=== PATIENT | male | born 1955 | race Caucasian/White ===

== ENCOUNTER 2016-09-13 00:33 | Inpatient (IN) | payer MEDICARE, OTHER ==
--- NOTE | ~2016-09-13 | CONSULT ---
Radiation Oncology Consult [address] [address] NAME: WILLIAMS BOSWELL : 53 STATUS : ADM IN PAT#: [id number] AGE: 60 ADM/REG DATE : 09/13/16 MR#: [id number] REPORT SERV DATE: 09/23/16 DICTATED BY: JOVANI POLK DATE: 09/23/16 REPORT STATUS : Draft TRANSCRIBED BY: MODOmaira DATE: 09/23/16 RADIATION ONCOLOGY CONSULTATION REASON FOR CONSULTATION: Local rectal cancer. HISTORY OF PRESENT ILLNESS: Mr. Boswell is a schizophrenic male with history of institution, who was recently transferred from [facility] with sepsis with workup showing a rectal mass. The following is taken from other reports since the patient is a very poor historian. He has had a history of total abdominal colectomy many years ago due to a traumatic incident with permanent ileostomy. The patient reports, however, makes stools. Dr. Wes Askew on 09/17/2016 performed ileoscopy with proctoscopy, as well as sigmoidoscopy. On digital rectal exam, a greater than 10 cm soft rectal mass was palpated 0.5 cm from the anal verge. This mass was circumferential. Fungating, nonobstructing large mass was found in the rectum measuring 12 cm in length. Biopsy showed moderately-differentiated adenocarcinoma. MRI without contrast performed yesterday shows tumor extending into the anal sphincter involving both the internal and external and through the intersphincteric plane. The imaging was limited due to motion artifacts, however, no distinct lymph nodes were apparent. CT of the chest shows three noncalcified nodules in the left upper lobe measuring 3 mm. These findings were reported to be nonspecific and high probability of being benign. The patient has been evaluated by Dr. Angulo who requests consideration for neoadjuvant therapy prior to resection. Today in the hospital bed, the patient again was a poor historian, at times suggesting that I was talking to the wrong Williams Boswell and wanted to ask if we are in [place]. No other family members were present at the time of the consultation. The patient reports continued dark stools, as well as pain in the rectal area. REVIEW OF SYSTEMS: Review of systems was attempted, but not reliably reported as above. PAST MEDICAL HISTORY: Significant psychiatric issues in the late teens including defiance, anger, lability problems, subsequently diagnosed with bipolar disorder and schizophrenic disorder. Followed at [facility] for many years. SOCIAL HISTORY: Lives in a assisted, which is managed by [facility]. One sister lives locally, has power of transactional attorney. Other sister is reportedly a top trimmer in [place]. PHYSICAL EXAMINATION: GENERAL: Well-developed, well-nourished white male, sitting in hospital bed, in no acute distress. Performance status 1. ENT: Moist oral mucosa. Hearing unimpaired. NECK: Supple without adenopathy or thyromegaly. EYES: Sclerae anicteric. Pupils are equal, round, and reactive to light. Radiation Oncology Consult [address] [address] NAME: WILLIAMS BOSWELL : 53 STATUS : ADM IN [facility]#: [id number] AGE: 60 ADM/REG DATE : 09/13/16 MR#: [id number] REPORT SERV DATE: 09/23/16 DICTATED BY: JOVANI POLK DATE: 09/23/16 REPORT STATUS : Draft TRANSCRIBED BY: BRONSON DATE: 09/23/16 PULMONARY: Clear to auscultation bilaterally. Good respiratory effort. CARDIOVASCULAR: Regular rate and rhythm. No peripheral edema. ABDOMEN: Right lower quadrant ileostomy in place with a large amount of succus in the bag. NEUROLOGIC: No focal deficits. IMAGING: I reviewed imaging as above. ASSESSMENT AND PLAN: Advanced rectal adenocarcinoma, at least T3 with lymph nodes difficult to evaluate on MRI. No evidence of distant metastasis: He is a candidate for neoadjuvant therapy to aid in surgical resection. Given the patient's difficult psychological and social state, I believe five to six weeks of standard neoadjuvant chemoradiotherapy may be difficult with high risk for the patient to stop appearing for treatments during his course. Therefore, I recommend use of the regimen of 25 Gy in 5 fractions. This should have low side affects and should be much easier to deliver to the patient. KAELA/BRONSON Jovani Polk MD / [id number] CC: Cole Jacobo MD
--- NOTE | ~2016-09-13 | CN ---
Consultation Report [facility] [address] [place]. [address] NAME: JODI BOSWELL : 53 STATUS : ADM IN [facility]#: [id number] AGE: 60 ADM/REG DATE : 09/13/16 MR#: [id number] REPORT SERV DATE: 09/13/16 DICTATED BY: SAIMA RODRIGUEZ DATE: 09/13/16 REPORT STATUS : Draft TRANSCRIBED BY: MODL DATE: 09/13/16 CONSULTATION DATE OF CONSULTATION: 09/13/2016 HISTORY: This is a 60-year-old, white male, who has been transferred here to [facility] to the ICU with suspected a rectal mass. I have been asked to help specifically with a Bardales catheter placement. Apparently, he was initially seen at [facility] and by report had a 10-Luxembourgish catheter inserted there and it was removed, no one here has been able to reinsert a Bardales, and the patient has not voided and has an elevated creatinine. He is bipolar and schizophrenic and is a very poor historian. Apparently, he lives in a fci. He really cannot give me a lot of voiding history but does mention that he has had trouble voiding over the last few days. He actually has been seen recently by Dr. Madrid for evaluation of a possible bladder mass but this has not been confirmed on recent CT scan. The patient denies any history of prostate or urethral surgery and I cannot find anything in his record about this. PAST MEDICAL HISTORY: Hypertension, bipolar disorder, schizophrenia. He has had some sort of abdominopelvic traumatic injury, requiring colostomy placement many years ago. Recent CT scan showed small kidneys consistent with chronic renal disease. SOCIAL HISTORY: He lives in a fci. He does not smoke or drink. HOME MEDICATIONS: Include only Norvasc, benztropine, olanzapine. ALLERGIES: HE IS ALLERGIC TO LATEX. PHYSICAL EXAMINATION: GENERAL: He is a very pleasantly confused, white male, who is in no distress. He is alert and will attempt to answer questions but again is confused. HEENT: His pupils are equal, round, and reactive. There is an NG tube in place. Oropharynx is clear. VITAL SIGNS: He is afebrile. His vital signs are stable at this time. NECK: Supple. LUNGS: Clear. HEART: Regular. ABDOMEN: Soft and nontender. There is a lower quadrant ostomy. I was not able to specifically palpate his bladder. : His penis is circumcised without lesion. Testes, epididymitis, spermatic cords are normal other than mild testicular atrophy. Anal tone is lax. Prostate gland exam is unusual. He has a flat firm feeling prostate as best I can tell. Normal prostatic anatomy is not particularly well delineated. EXTREMITIES: No cyanosis. Consultation Report [address] [place]. [address] NAME: JODI BOSWELL : 53 STATUS : ADM IN [facility]#: [id number] AGE: 60 ADM/REG DATE : 09/13/16 MR#: [id number] REPORT SERV DATE: 09/13/16 DICTATED BY: SAIMA RODRIGUEZ DATE: 09/13/16 REPORT STATUS : Draft TRANSCRIBED BY: BRONSON DATE: 09/13/16 LABORATORY VALUES: White cell count 17.9, H and H 14 and 44, current creatinine is 7.7, BUN is 127, procalcitonin 2.5, serum sodium is only 120, alkaline phosphatase is markedly elevated at 192. Transfer records from [facility] include a CT of the abdomen and pelvis done on 09/12/2016. By report, this shows a right lower quadrant ostomy with small bowel obstruction and irregular rectum with rectal wall thickening, worrisome for carcinoma, fluid filled sigmoid colon, a distended urinary bladder, an enlarged prostate gland, small irregular kidneys consistent with chronic medical renal disease. Actually, urinalysis from 09/12 at [facility] showed 5 white cells and 3 red cells per high-powered field. After sterile prep and drape and instillation of lidocaine jelly and K-Y jelly per urethra, I was able to place a 16-Luxembourgish latex-free Bardales without any difficulty. We obtained roughly 275 mL of urine, which does not represent a true residual urine volume. The urine looked dark. IMPRESSION: 1. Questionable history of urinary retention/voiding difficulty. 2. Nursing staff unable to pass a Bardales catheter. 3. Acute renal failure on chronic renal failure. 4. Underlying benign prostatic hyperplasia, although a baseline voiding history is extremely difficult to obtain. 5. Apparent rectal/pelvic mass potentially with bowel obstruction. RECOMMENDATIONS: Again, I was able to place a 16-Luxembourgish latex-free Bardales without difficulty. From a standpoint, we will simply leave this in position, and we will collect urine for UA, C and S. I am going to sign off now but will be available for any issues as needed. I suppose his Bardales catheter could be removed whenever you see fit. Since he is an established patient of Dr. Madrid at [facility], he can certainly follow up with [facility] upon discharge. Thank you for the consult. LINDY/BRONSON Saima Rodriguez M.D. / [id number] CC: Jocelyn Dhaliwal M.D.
--- NOTE | ~2016-09-13 | CN ---
Consultation Report [facility] [address] [place]. [address] NAME: JODI BOSWELL : 53 STATUS : ADM IN [facility]#: [id number] AGE: 60 ADM/REG DATE : 09/13/16 MR#: [id number] REPORT SERV DATE: 09/14/16 DICTATED BY: WES CALIXTO DATE: 09/14/16 REPORT STATUS : Draft TRANSCRIBED BY: MODL DATE: 09/14/16 INPATIENT CONSULT NOTE DATE OF CONSULTATION: 09/14/2016 REASON FOR CONSULTATION: Concern for rectal mass/colonic obstruction. HISTORY OF PRESENT ILLNESS: Mr. Boswell is a very pleasant, 60-year-old male with a past medical history most significant for prior colectomy with chronic right lower quadrant colostomy, who was transferred from [facility] the day prior to this consultation after presenting with altered mental status, shortness of breath, and a significant acute renal failure. As part of the patient's evaluation at the outside hospital, he had undergone a noncontrast CT scan that showed a suspected distal obstruction problems proximal to the right lower quadrant colostomy. There was also an area of enlargement and irregularity in the rectum suspicious for possible neoplasm. Given these findings, GI was consulted here at [facility] after his transfer for further evaluation. Per patient's report, the patient's surgery was somewhere in between 7 and 10 years prior. The patient had sustained a traumatic injury to his abdomen after a fall resulting in a perforated viscus with placement of the colostomy after colon resection. No history of colon cancer in the family. No bright red blood per rectum. No melena by report. The patient has had increased ostomy output recently. REVIEW OF SYSTEMS: All systems reviewed were negative aside from what was mentioned in the history of present illness. PAST MEDICAL HISTORY: Includes: 1. Hypertension. 2. Bipolar disorder. 3. Schizophrenia. 4. History of perforated viscus, status post partial colectomy and right lower quadrant colostomy placement. FAMILY HISTORY: No family history of GI-related malignancy. SOCIAL HISTORY: No alcohol, tobacco, or illicit substance use. ALLERGIES: THE PATIENT HAS ALLERGIES TO LATEX ONLY. OUTPATIENT MEDICATIONS: 1. Norvasc. 2. Zyprexa. Consultation Report [facility] [address] [place]. [address] NAME: JODI BOSWELL : 53 STATUS : ADM IN PAT#: [id number] AGE: 60 ADM/REG DATE : 09/13/16 MR#: [id number] REPORT SERV DATE: 09/14/16 DICTATED BY: WES CALIXTO DATE: 09/14/16 REPORT STATUS : Draft TRANSCRIBED BY: BRONSON DATE: 09/14/16 3. Cogentin. 4. Vitamin D3. 5. Advil p.r.n. PHYSICAL EXAMINATION: VITAL SIGNS: Most recent vital signs include a temperature of 97.2, pulse rate of 104, blood pressure 104/62, and saturating 99% on room air. GENERAL INSPECTION: Reveals an elderly male, lying in bed, in no apparent distress. HEENT: Head is normocephalic, atraumatic with normal inspection of oral mucosa which is moist. Sclerae nonicteric. Pupils are equal and round. The patient has an NG tube coming out of his left naris that is taped in place. NECK: Supple without lymphadenopathy. HEART: Heart rate is regular with normal S1, S2. LUNGS: Sounds clear to auscultation bilaterally from the anterior aspect. ABDOMEN: Soft, nontender, nondistended. The patient has active bowel sounds. No masses were appreciated. The patient had a colostomy in his right lower quadrant and is producing greenish brown stool. EXTREMITIES: The patient had no cyanosis, clubbing, or edema. SKIN: No jaundice or rash. PSYCHIATRIC: He was alert and oriented. Mood and affect appear to be appropriate. Judgment appeared to be intact. LABORATORY DATA: Most recent laboratory results include a CBC with a white count of 16.2, hemoglobin of 14.8, and a platelet count of 397,000. Comprehensive metabolic panel was remarkable for sodium of 130, potassium is critically low at 2.2, chloride of 77, bicarb of 24, BUN of 144, creatinine of 7.64. Magnesium of 3.3. Phosphorus of 9.5. Normal LFTs. The patient had a KUB and a small-bowel follow-through performed here this morning that showed evidence of dilated small bowel up to a maximal diameter of 5.6 cm water-soluble contrast was slow to move through the small bowel and did not appear to reach the colon or the ostomy bag. ASSESSMENT AND PLAN: Mr. Boswell is a very pleasant 60-year-old male with a past medical history most significant for prior perforated viscus and placement of a colostomy several years ago, who now has imaging findings suspicious for colonic obstruction proximal to his ostomy as well as irregularities in the rectum concerning for a neoplasm there. We would recommend endoscopic evaluation and biopsies for both of these abnormalities. However, at the current time, the patient's electrolyte abnormalities were significant, and the patient is a not an appropriate candidate for an elective procedure with sedation. We would recommend working to resolve the patient's electrolyte abnormalities and treating his renal failure. We would also check a CEA level. We will proceed with an endoscopic evaluation at some point in the near future once the patient is more appropriate candidate for sedation and undergoing procedures. Consultation Report [facility] [address] [place]. [address] NAME: JODI BOSWELL : 53 STATUS : ADM IN [facility]#: [id number] AGE: 60 ADM/REG DATE : 09/13/16 MR#: [id number] REPORT SERV DATE: 09/14/16 DICTATED BY: WES CALIXTO DATE: 09/14/16 REPORT STATUS : Draft TRANSCRIBED BY: BRONSON DATE: 09/14/16 Thank you very much for this interesting consult. We will follow along. Please call with any questions or concerns you may have. [facility]/BRONSON Wes Calixto MD / [id number] CC: Jocelyn Dhaliwal M.D. UNKNOWN
--- NOTE | ~2016-09-13 | CONSULT ---
Radiation Oncology Consult [place] [address] [place]. [address] NAME: JODI BOSWELL : 53 STATUS : ADM IN PAT#: [id number] AGE: 60 ADM/REG DATE : 09/13/16 MR#: [id number] REPORT SERV DATE: 09/23/16 DICTATED BY: JOVANI POLK DATE: 09/23/16 REPORT STATUS : Draft TRANSCRIBED BY: MODL DATE: 09/23/16 RADIATION ONCOLOGY CONSULTATION ADDENDUM: ASSESSMENT AND PLAN: 1. The benefit of 25 Gy in 5 fractions is the brevity of the course (one week), as well as no need for concurrent systemic therapy. We will arrange for CT simulation in the next one to two days and hope to start treatment soon thereafter. I will discuss final plans with Dr. Angulo and Dr. Vicki Kramer. 2. Informed consent: Risks, benefits, and alternatives of radiotherapy were explained to the patient. He voiced understanding and has elected to proceed as above. Of note, he is confused today and therefore consent will need to be provided by his power of fire crew specialist (his sister who lives locally). 3. Sepsis: This is being managed as an inpatient. It is a pleasure to participate in his care. KAELA/BRONSON Jovani Polk MD / [id number] CC: MD Wes Malik MD David Sahaj, M.D. Brooke R. Daniel, M.D. Eric C. Nelson, MD
--- NOTE | ~2016-09-13 | CN ---
Consultation Report [facility] [address] [place]. [address] NAME: JODI BOSWELL : 53 STATUS : ADM IN PAT#: [id number] AGE: 60 ADM/REG DATE : 09/13/16 MR#: [id number] REPORT SERV DATE: 09/20/16 DICTATED BY: GRICEL ANGULO DATE: 09/20/16 REPORT STATUS : Draft TRANSCRIBED BY: MODL DATE: 09/20/16 COLORECTAL SURGERY CONSULTATION NOTE DATE OF CONSULTATION: 09/20/2016 REASON FOR CONSULTATION: Low colorectal cancer. HISTORY OF PRESENT ILLNESS: This is an unfortunate 60-year-old, schizophrenic male who is institutionalized. He has a very supportive family, however but I have not been able to meet them yet. The patient was transferred from [facility] with sepsis and worked up in the intensive care unit. His creatinine has nearly returned to normal. His white blood cell count is decreased. The source of the sepsis is a little bit unclear to me, but may be related to infection of his distal rectal pouch, although this would be very unusual. In any case, he also possibly had some small bowel obstruction, but this also seems to have resolved at this time and his right lower quadrant ileostomy is working well. The reason he has an ileostomy is apparently that he underwent a total abdominal colectomy many years ago for a traumatic incident where he fell on a norman. He has had no problems with this since by his report, but of course his history is unreliable. I have personally discussed the case with Dr. Nieves, Dr. Askew who discussed the findings of ileoscopy and his distal rectal stump with me, and I have also personally discussed the case Dr. Vicki Kramer regarding the need to renew the neoadjuvant treatment. I have not been able to see the CT scans that were obtained over at [place], which showed apparently by report a small bowel obstruction as well as the lesion in his pelvis. The fact that his creatinine was elevated is very concerning and may indicate involvement of the tumor with other pelvic structures such as prostate or ureters. CT scan is not adequate to evaluate this however. For the rest of his medical history, surgical history, social history, family history, medications, allergies to mediations, and review of systems, please see his admitting history and physical. PHYSICAL EXAMINATION: VITAL SIGNS: Most recent temperature 98.5, pulse 93, 97% on room air, blood pressure is 90/70, respiratory rate 16. GENERAL: Alert and oriented x3. A pleasant man who is somewhat repetitive. HEENT: Normocephalic, atraumatic. NECK: Supple. No carotid bruits are noted. No cervical lymphadenopathy. CHEST: Clear to auscultation bilaterally. HEART: Regular rate and rhythm. No murmurs, rubs, or gallops are auscultated. ABDOMEN: Completely soft, nontender, and nondistended. His right lower quadrant ileostomy has a large amount of succus in the bag. EXTREMITIES: Warm and well perfused without edema. NEURO: No focal neurologic deficits are noted on gross exam. RECTAL: Exam reveals frondlike tissue all the way down to the anal verge, but I do not feel any hard sections. I discussed with Dr. Askew and he states that his entire rectum is Consultation Report [address] [address] NAME: JODI BOSWELL : 53 STATUS : ADM IN [facility]#: [id number] AGE: 60 ADM/REG DATE : 09/13/16 MR#: [id number] REPORT SERV DATE: 09/20/16 DICTATED BY: GRICEL ANGULO DATE: 09/20/16 REPORT STATUS : Draft TRANSCRIBED BY: BRONSON DATE: 09/20/16 replaced with tubulovillous adenoma appearing material and the actual area that he biopsied to demonstrate adenocarcinoma was a little bit higher up. IMAGING: As above. LABS: As above. ASSESSMENT: A 60-year-old, institutionalized schizophrenic male, already an ostomate, now with findings of a rectal cancer. PLAN: We will obtain an MRI rectal cancer protocol. If it appears that negative circumferential resection margins are achievable, I will offer the patient primary surgery. I discussed this with his sisters. If it appears that the patient would benefit neoadjuvant treatment, we will need to discuss this in a multidisciplinary setting. Per my discussion with Dr. Vicki Kramer, the patient is at high risk for complications not only due to his mental status, but also due to his acute kidney injury and possible chronic renal insufficiency. I appreciate everyone's input and hopefully we can bring this poor man's situation to a successful conclusion. ISMAELN/BRONSON Gricel Angulo MD / [id number] CC: Dane De Los Santos M.D.
--- NOTE | ~2016-09-13 | IDS ---
Interim Discharge Summary [facility] [address] [place]. [address] NAME: JODI BOSWELL : 53 STATUS : ADM IN PAT#: [id number] AGE: 60 ADM/REG DATE : 09/13/16 MR#: [id number] REPORT SERV DATE: 09/18/16 DICTATED BY: MORGAN DHALIWAL DATE: 09/18/16 REPORT STATUS : Draft TRANSCRIBED BY: MODL DATE: 09/18/16 ADMISSION DATE: 09/13/2016 DISCHARGE DATE: The patient was actually transferred from [facility]. TRANSFER DIAGNOSES: 1. Encephalopathy. 2. Shortness of breath. 3. Increased colostomy output, possible small-bowel obstruction. 4. Bipolar schizophrenia. 5. Acute kidney failure. 6. Previous colostomy done secondary to traumatic injury to the abdomen years ago. CONSULTATIONS DURING THIS HOSPITALIZATION: 1. To Urology, Dr. Caraballo for inability to place Bardales. 2. Nephrology for acute kidney failure. 3. GI for possible rectal mass, bleeding, and to surgery Dr. Nieves for evaluation of possible small bowel obstruction. HOSPITAL COURSE: This is a 60-year-old patient who was evaluated at [facility] on 13 of September, which he was for increased colostomy output and altered mental status as well as shortness of breath. The patient had started a workup on an outpatient basis for a possible mass on his bladder, which actually turned out not to be the case, and the patient was scheduled to see a colorectal surgeon earlier this week, but instead got admitted to [facility]. Surgery, Dr. Nieves was consulted for evaluation and possible need for any surgical intervention for small bowel obstruction. The surgeons have been following along, and thus far there is no need for any surgical intervention as far as his small bowel obstruction goes. The patient was thought to possibly have had an ileus as well. However, the patient did undergo colonoscopy done by Dr. Askew on 17 of September, which revealed a rectal mass. Biopsies were taken and were sent out for expedited pathology and results are not back as of yet. So, once the results have been obtained Hematology/Oncology should be consulted for further advice on treatment. It is still possible that the patient may need surgical intervention. While here, his colostomy has been functioning well, and there has been no trouble with stool production. The patient is also able to take a regular diet without any abdominal pain, nausea, or vomiting. Acute kidney injury versus kidney failure. The patient has been seen by Nephrology during this hospitalization and initial creatinine was 5. It was felt by Nephrology that the patient was profoundly volume depleted accounting for his hyponatremia. Hypokalemia was thought to be secondary to lack of good p.o. intake and perhaps nausea and vomiting. The patient also had an increased anion gap metabolic acidosis. The patient was aggressively hydrated and started on a bicarbonate drip. Throughout the week, his creatinine and BUN have improved to where he is at 1.91 and 56 on his BUN, bicarbonate is 25, potassium is 3.8, and hyponatremia has resolved, and his sodium is now 136. Interim Discharge Summary [address] [address] NAME: JODI BOSWELL : 53 STATUS : ADM IN PAT#: [id number] AGE: 60 ADM/REG DATE : 09/13/16 MR#: [id number] REPORT SERV DATE: 09/18/16 DICTATED BY: MORGAN DHALIWAL DATE: 09/18/16 REPORT STATUS : Draft TRANSCRIBED BY: BRONSON DATE: 09/18/16 Next, the patient has a known history of bipolar schizophrenia, and is on medications which keep that under control, and this has not been an issue during this hospitalization. He is able to take p.o. and his medications have been continued. The patient had a difficult Bardales placement, and Dr. Caraballo, Urology saw the patient on 13 of September. Bardales was placed at the bedside, but since has been removed and the patient is able to void on his own. The patient should follow up with Urology, Dr. Madrid at [facility] since he already was initially evaluated by him. Urinalysis was sent on the and was not suggestive of urinary tract infection. So, the patient has been stabilized, and is in stable condition to be transferred to the Hospitalist Service later today if everybody else agrees. /MODL Morgan Dhaliwal M.D. / [id number] CC: Morgan Dhaliwal M.D.
--- NOTE | ~2016-09-13 | CN ---
Consultation Report [facility] [address] [place]. [address] NAME: JODI BOSWELL : 53 STATUS : ADM IN PAT#: [id number] AGE: 60 ADM/REG DATE : 09/13/16 MR#: [id number] REPORT SERV DATE: 09/13/16 DICTATED BY: LILY BARTON DATE: 09/13/16 REPORT STATUS : Draft TRANSCRIBED BY: MODL DATE: 09/13/16 CONSULTATION DATE OF CONSULTATION: REASON FOR CONSULTATION: Acute versus acute on chronic kidney injury. ASSESSMENT: Acute on chronic kidney disease in a 60-year-old male with a history of bipolar disorder, presenting in addition with hyponatremia, profound increased anion gap metabolic acidosis in the setting of possible small-bowel obstruction with a serum creatinine on admission of 8.04, now 7.78; BUN of 127; bicarb initially 17, now 13; and potassium of 2.4, initially 2.6; sodium of 120, now 124. With all the multiple electrolyte abnormalities, I suspect that the patient may be profoundly volume depleted with a true hyponatremia. The hypokalemia could be also explained by his profound nausea and vomiting, lack of intake, but in the setting of an increased anion gap metabolic acidosis, suggest that they could have been due to ongoing small-bowel loss. PLAN: Plan therefore is 1. Hydrate aggressively. We will place him on a bicarbonate drip. 2. Urine chemistries indicate that he is likely prerenal. 3. Supplement potassium but careful supplementation in view of his significant kidney failure. Prognosis alfaro, I suspect he has dehydration, but this may have gone on to ATN. I talked to his power of criminal attorney who is his sister that is Rhina Wakefield, and the issue of whether he should be a candidate for renal replacement therapy. This is something she is going to consider and talk to her other siblings as well, and we will make this decision over the next 24-48 hours in case his GFR does not improve. HISTORY: History is obtained from the records available. The patient is a very limited historian. He is a 60-year-old male who lives in a bipolar jail, and he had rectal bleeding for the past 2 to 3 weeks. He was supposed to see a colorectal surgeon today actually, but his sister saw that he was getting progressively worse over the past several days and sent him to ER at [facility] where he was found to be in profound renal failure, and a CT scan shows the presence of not only a rectal mass but a distended sigmoid colon in addition to possible small-bowel obstruction. His CT scan done at [facility] showed small kidneys bilaterally, but no evidence of obstructive disease. He did have a distended bladder. Bardales catheter was initially difficult to place but has been placed, but then there has been no evidence of a postobstructive diuresis at this time. MEDICATIONS: His medications at home include amlodipine, benztropine, and olanzapine. PAST MEDICAL HISTORY: Includes hypertension, bipolar, schizophrenia, history of traumatic injury to his abdomen and requiring a colostomy back in 2006 at [facility]. SOCIAL HISTORY: He does not smoke cigarettes. No alcohol or medication or street drug Consultation Report [address] [place]. [address] NAME: JODI BOSWELL : 53 STATUS : ADM IN [facility]#: [id number] AGE: 60 ADM/REG DATE : 09/13/16 MR#: [id number] REPORT SERV DATE: 09/13/16 DICTATED BY: LILY BARTON DATE: 09/13/16 REPORT STATUS : Draft TRANSCRIBED BY: BRONSON DATE: 09/13/16 usage. FAMILY HISTORY: Positive for metastatic lung cancer in his father. Mother was a diabetic and had kidney failure. REVIEW OF SYSTEMS: As per the HPI. PHYSICAL EXAMINATION: GENERAL: He is an ill-appearing male, appears cachectic. VITAL SIGNS: His vital signs show that his blood pressure is 113/75, heart rate is in 104, afebrile. HEENT: Pupils are reacting to light. He is not pale or jaundiced. Oral mucosa is dry. He has an NG tube in his left nostril. CHEST: Air entry is equal bilaterally. Chest is clear to auscultation. HEART: Seminole beat not displaced. S1-S2. No rub. ABDOMEN: It is distended. He has a colostomy in right lower quadrant. There is no tenderness, guarding, or rebound. EXTREMITIES: He has 1+ peripheral edema. No skin rash reported. No acute arthritic findings noted. Peripheral pulses are present, dorsalis pedis, posterior tibial. NEUROLOGIC: He is awake, alert, he is oriented to place and name, but has a bland affect. LABORATORY DATA: His lab work shows him to have a sodium of 124, potassium 2.4, chloride 81, CO2 of 13, BUN 127, creatinine 7.78, magnesium 3.2, phosphorus 11.0. White count 17.9, hematocrit 44.0, hemoglobin 14.6, platelets 421. His urine chemistries show him to have a urine sodium of 10 and a creatinine of 144. FENa less than 1. MG/MODL Lily Barton M.D. / [id number] CC: Jocelyn Dhaliwal M.D.
--- NOTE | ~2016-09-13 | DS ---
Discharge Summary [place] [id number] [facility] [place]. [address] NAME: JODI BOSWELL : 53 STATUS : DIS IN PAT#: [id number] AGE: 60 ADM/REG DATE : 09/13/16 MR#: [id number] REPORT SERV DATE: 10/02/16 DICTATED BY: DATE: REPORT STATUS : Draft TRANSCRIBED BY: MODL DATE: 10/01/16 ADMISSION DATE: 09/13/2016 DISCHARGE DATE: 10/01/2016 DISCHARGE DIAGNOSES: 1. Colorectal cancer. 2. Acute kidney injury on chronic kidney disease, stage III. 3. History of colostomy. 4. History of electrolyte abnormalities. 5. Schizoaffective disorder. 6. Hypertension. CONSULTATIONS: 1. Dr. Javi Caraballo, Urology. 2. Dr. Eliud Barton, Nephrology. 3. Dr. Wes Askew, Gastroenterology. 4. Dr. Vicki Kramer, [facility]. 5. Dr. Jhonny Angulo, Surgery. 6. Dr. Serge Nieves, Psychiatry. 7. Dr. Jovani Polk, Radiation Oncology. PERTINENT TESTS AND PROCEDURES: 1. Small bowel follow-through, 09/13/2016. Impression: Dilated small bowel. No definite contrast identified within distal small bowel or ostomy bag at 10.5 hours. 2. KUB, 09/14/2016. Impression: Decreased small bowel dilatation compared with 09/13/2016. Only minimal residual dilute contrast present within small bowel. No definite contrast identified within the right lower quadrant ostomy bag. Appearance is likely partial small bowel obstruction. 3. Abdominal x-ray, 09/14/2016. Impression: Mild dilatation of small bowel. Contrast now present in the right lower quadrant ostomy bag. 4. Abdominal x-ray, 09/15/2016. Impression: Nonobstructive gas pattern. Decrease in amount of intestinal gas compared to prior studies. 5. MRI of pelvis without contrast, 09/20/2016. Impression: Large bulky tumor extending from the anal sphincter complex into mid rectum. Stage IIA. Please note however because of motion limitations, detection of the nodes is felt to be compromised. 6. CT of chest without contrast, 09/21/2016. Impression: Three noncalcified nodules in the left upper lobe measuring 3 x 3 mm in size. Nonspecific findings with high probability of being benign. Patchy ground-glass opacity within the left upper lobe, which may be infectious/inflammatory. Atelectatic changes in the lower lobes of both lungs as well as in the lingula. 7. Ileoscopy with pouchoscopy, 09/17/2016. Findings: Digital rectal exam revealed a greater than 10 cm diameter soft rectal mass palpated 0.5 cm from the anal verge. The mass was circumferential. A fungating, nonobstructing large mass was found in the rectum. The mass was circumferential. The mass measured 12 cm in length. No bleeding was present. Biopsies were taken. The area at 30 cm proximal to the stoma appeared normal. Likely malignant tumor in the rectum. Biopsied. Examined portion of the Discharge Summary [address] [address] NAME: JODI BOSWELL : 53 STATUS : DIS IN [facility]#: [id number] AGE: 60 ADM/REG DATE : 09/13/16 MR#: [id number] REPORT SERV DATE: 10/02/16 DICTATED BY: DATE: REPORT STATUS : Draft TRANSCRIBED BY: MODL DATE: 10/01/16 ileum was normal. 8. Surgical pathology report. Final pathologic diagnosis: Biopsies, rectal mass, moderately differentiated adenocarcinoma. CHIEF COMPLAINT UPON ADMISSION: Altered mental status, shortness of breath, increasing colostomy output. HOSPITAL COURSE: Please refer to history and physical dated 09/13/[address] Jocelyn Dhaliwal for complete details of the patient's initial presentation upon admission and health history. Please also refer to consultations from multiple subspecialists to include Urology, Nephrology, Gastroenterology, Oncology, General Surgery, Psychiatry, Radiation Oncology between the dates of service of 09/13/2016 and 09/23/2016. Please refer to interim discharge summary dated 09/18/[address] Jocelyn Dhaliwal for events pertaining to dates of service between 09/13/2016 and 09/18/2016. Please also refer to interim discharge summary dated 09/27/[address] Cole Jacobo for events occurring between dates of service 09/19/2016 and 09/27/2016. Briefly, the patient is a 60-year-old male, who presented to the emergency department on 09/13/2016 after transfer from [facility]. The patient presented with altered mental status, shortness of breath, and increased colostomy output. Initial evaluation performed at [facility] included a CT scan of the abdomen without contrast that showed a suspected distal obstruction proximal to the right lower quadrant colostomy. There was concern regarding possible rectal carcinoma and the patient was in the process of having this worked up as an outpatient before this admission. Further evaluation also indicated acute kidney failure of unclear etiology with metabolic acidosis. The patient was admitted to the intensive care unit for further evaluation and treatment. During this admission, the patient was diagnosed with colorectal cancer and has been followed by Radiation Oncology and Surgery. The patient completed five out of five radiation treatments today and is scheduled for surgery with Dr. Jhonny Angulo next , 10/07/2016. The patient will follow up with Dr. Vicki Kramer, [facility] approximately two weeks postop for further evaluation and future recommendations regarding plan of care. 1. Colorectal cancer. This is a new diagnosis. The patient has been followed by Radiation Oncology and Surgery along with Oncology. The patient completed five of five radiation treatments during this admission, last treatment today. The patient will return to the hospital on , 10/07/2016, for surgery per Dr. Jhonny Angulo. 2. Acute kidney injury on chronic kidney disease, stage III. Nephrology was consulted upon admission secondary to the patient presenting with hyponatremia, profound increased anion gap metabolic acidosis in the setting of possible small bowel obstruction with serum creatinine on admission of 8.04 and BUN of 127. With all the Discharge Summary [address] [address] NAME: JODI BOSWELL : 53 STATUS : DIS IN PAT#: [id number] AGE: 60 ADM/REG DATE : 09/13/16 MR#: [id number] REPORT SERV DATE: 10/02/16 DICTATED BY: DATE: REPORT STATUS : Draft TRANSCRIBED BY: MODL DATE: 10/01/16 multiple electrolyte abnormalities, it was suspected that the patient was suffering from profound volume depletion with a true hyponatremia. Hypokalemia could have also been explained by profound nausea and vomiting, lack of intake, but may have also been related to ongoing small bowel loss in the setting of increased anion gap metabolic acidosis. The patient received aggressive hydration and was placed on a bicarbonate drip. Throughout the first week of admission, the patient responded well to aggressive hydration and bicarbonate drip. Creatinine has continued to trend down daily, and BUN and creatinine were reported to be 30 and 1.60 today. 3. History of colostomy. This is secondary to trauma associated with fall multiple years ago. The patient performs self-care of ostomy bag at home. The patient has produced approximately 725 mL of liquid to softly formed stool over the past 24 hours. 4. History of electrolyte abnormalities in the setting of acute kidney injury on chronic kidney disease, stage III. This occurred during the first week of admission and was likely related to volume depletion. The patient responded well to aggressive hydration and electrolyte repletion. The patient's electrolytes are stable on the day of discharge. Potassium is reported to be 3.4 and will be repleted per protocol before discharge, magnesium 1.8, and phosphorus 3.6. 5. Schizoaffective disorder. The patient has a history of bipolar and schizophrenia, which is well controlled on current medications. He was evaluated by Dr. Serge Nieves, Psychiatry during this admission and recommendations included continuing current Zyprexa and Cogentin. The patient is at baseline state of mental health at discharge and will return to his fdc upon discharge today. 6. Hypertension. The patient's home medications included amlodipine 5 mg p.o. daily. This medication was discontinued upon admission secondary to hypotension. The patient has not had any blood pressure medications since admission and systolic blood pressure has remained stable in the mid 90s to very low 100s. The patient has been instructed to check blood pressure at home daily and to resume this medication if systolic blood pressure is equal to or greater than 130 consistently. DISCHARGE CONDITION: At the time of discharge, the patient is hemodynamically stable. DISCHARGE DIET: Regular diet. DISCHARGE MEDICATIONS: 1. Cogentin 2 mg tablet p.o. three times daily. 2. Zyprexa 10 mg tablet, take 30 mg p.o. at bedtime. 3. Amlodipine 5 mg tablet p.o. daily. This medication should be held until blood pressure indicates consistent reading of systolic of 130 or greater. Currently, the patient's blood pressure is running between 90 to low 100s over mid 50s to low 60s. 4. Vitamin D3 10,000 international units one capsule p.o. weekly. 5. Advil 200 mg tablet p.o. daily as needed. This medication should be discontinued secondary to recent acute renal failure. DISCHARGE INSTRUCTIONS: 1. The patient is scheduled for surgery with Dr. Angulo on 10/07/2016. 2. The patient will follow up with Dr. Vicki Kramer approximately two weeks postop for further recommendations and future plan of care. Discharge Summary [place] [address] [place] [address] NAME: JODI BOSWELL : 53 STATUS : DIS IN PAT#: [id number] AGE: 60 ADM/REG DATE : 09/13/16 MR#: [id number] REPORT SERV DATE: 10/02/16 DICTATED BY: DATE: REPORT STATUS : Draft TRANSCRIBED BY: MODL DATE: 10/01/16 PRIMARY SURGEON: Dr. Angulo. PRIMARY ONCOLOGIST: Dr. Vicki Kramer. [facility]/BRONSON Skye Balbuena CALENDER TENDER-C / [id number] CC: Chaitanya Trinidad M.D.
--- NOTE | ~2016-09-13 | IDS ---
Interim Discharge Summary [facility] [address] [place]. [address] NAME: JODI BOSWELL : 53 STATUS : ADM IN PAT#: [id number] AGE: 60 ADM/REG DATE : 09/13/16 MR#: [id number] REPORT SERV DATE: 09/27/16 DICTATED BY: KONRAD STANLEY DATE: 09/27/16 REPORT STATUS : Draft TRANSCRIBED BY: MODOmaira DATE: 09/27/16 ADMISSION DATE: 09/13/2016 DISCHARGE DATE: ADDENDUM: This dictation is an addition to interim discharge summary dictated by Dr. Jocelyn Dhaliwal, on 09/18/2016. I assumed care of the patient on 09/21/2016. At the time of my assumption of care, the patient had a diagnosis of a rectal mass. He had been seen by Psychiatry for his intermittent altered mentation. The patient was diagnosed with schizoaffective disorder. At the time of my assumption of care, the patient remained hemodynamically stable. Oncology was already following the patient and so was Surgery and Radiation Oncology. Given the architecture of the patient's mass, the plan was for surgery to be deferred for now. While patient had neoadjuvant therapy, Radiation Oncology who was following patient did simulation studies on Tuesday09/24/2016 with plans to start a five-day course of radiation therapy starting today. The patient has remained hemodynamically stable throughout the time that he has been under my care. For his DEMETRICE, the patient was started on IV fluids with significant improvement of his kidney function. His last creatinine is 1.68 which is the best that it has been since the patient's hospitalization. For his hyponatremia, the patient has been hyponatremic since my assumption of care. The patient has remained asymptomatic status post initiation of normal saline 1 L. The patient's hyponatremia has resolved. Plan for patient is for a five-day course of radiation therapy after which patient will be discharged to follow with Oncology as outpatient. Discharge planning is still pending. CRISTO Konrad Stanley MD / [id number] CC: Konrad Stanley MD
--- NOTE | ~2016-09-13 | CN ---
Consultation Report [facility] [address] [place]. [address] NAME: JODI BOSWELL : 53 STATUS : ADM IN [facility]#: [id number] AGE: 60 ADM/REG DATE : 09/13/16 MR#: [id number] REPORT SERV DATE: 09/20/16 DICTATED BY: SERGE MCMAHAN DATE: 09/20/16 REPORT STATUS : Draft TRANSCRIBED BY: BRONSON DATE: 09/20/16 PSYCHIATRIC CONSULTATION DATE OF CONSULTATION: 09/20/2016 I reviewed this patient's medical record. I discussed the patient's history with his two sisters who were at the bedside. HISTORY OF PRESENT ILLNESS: He was admitted with confusion, shortness of breath, and an increased colostomy output. Since his admission, he was found to have a rectal carcinoma which might require surgery and/or other therapeutic interventions. PAST PSYCHIATRIC HISTORY: He has had significant psychiatric issues since his late teens. He had defiance, anger and lability problems. In subsequent years, he was variously diagnosed with bipolar disorder and schizophrenic disorder. He has been followed by [facility] for many years. MEDICATIONS: His current home medication list included Zyprexa and Cogentin. SOCIAL HISTORY: He lives in a longterm which is managed by [facility]. One sister who lives locally has power of ip attorney. The other sister who is a bartender in [place] is also very interested and supportive. MENTAL STATUS: He was pleasant and cooperative in attitude. He had a fairly good understanding about his having rectal cancer and the treatments which are under consideration. He is quite anxious about these issues. His affect was mostly appropriate, with mild lability. His thinking had mild tangentiality. No delusions were elicited. I did not observe his responding to internal stimuli (hallucinations). DIAGNOSIS: Schizoaffective disorder. RECOMMENDATIONS: We can continue with the current Zyprexa and Cogentin. I will be available for re-consultation if the need arises. [facility]/BRONSON Serge Mcmahan M.D. / [id number] CC: Dane De Los Santos M.D.
--- NOTE | ~2016-09-13 | EGD ---
EGD REPORT [facility] [address] [place]. [address] NAME: WILLIAMS BOSWELL : [birth year] STATUS : ADM IN PAT#: [id number] AGE: 60 ADM/REG DATE : 09/13/16 MR#: [id number] REPORT SERV DATE: 09/17/16 DICTATED BY: WES CALIXTO DATE: 09/17/16 REPORT STATUS : Draft [facility]ANS[facility] DATE: 09/17/16 Endoscopy Center Patient Name: Williams Boswell Date of : 1955 Attending MD: WES CALIXTO MD Procedure Date No Time: 09/17/2016 Procedure: Ileoscopy with Pouchoscopy Indications: Observation, suspect malignant neoplasm, Abnormal CT of the GI tract Referring MD: DEYANIRA RICKS III, MD Medicines: Monitored Anesthesia Care Complications: No immediate complications. Estimated blood loss: Minimal. Procedure: Pre-Anesthesia Assessment: - ASA Grade Assessment: III - A patient with severe systemic disease. After obtaining informed consent, the endoscope was passed under direct vision. Throughout the procedure, the patient's blood pressure, pulse, and oxygen saturations were monitored continuously. The [id number] was introduced through the anus and advanced to the Dinh pouch. After obtaining informed consent, the endoscope was passed under direct vision. Throughout the procedure, the patient's blood pressure, pulse, and oxygen saturations were monitored continuously. The CF [id number] was introduced through the ileostomy and advanced to 30 cm into the ileum. The procedure was performed without difficulty. The patient tolerated the procedure well. The quality of the bowel preparation was good. Findings: Digital rectal exam revealed a greater than 10 cm (diameter) soft rectal mass palpated 0.5 cm from the anal verge. The mass was circumferential. A fungating non-obstructing large mass was found in the rectum. The mass was circumferential. The mass measured twelve cm in length. No bleeding was present. Biopsies were taken with a cold forceps for histology. Estimated blood loss was minimal. The area at 30 cm proximal to the stoma appeared normal. Impression: - Likely malignant tumor in the rectum. Biopsied. - The examined portion of the ileum was normal. Recommendation: - Clear liquid diet. - Await pathology results. EGD REPORT [address] [address] NAME: WILLIAMS BOSWELL : [birth year] STATUS : ADM IN [facility]#: [id number] AGE: 60 ADM/REG DATE : 09/13/16 MR#: [id number] REPORT SERV DATE: 09/17/16 DICTATED BY: WES CALIXTO DATE: 09/17/16 REPORT STATUS : Draft TRANSCRIBED BY: [facility] DATE: 09/17/16 - Refer to an oncologist if pathology confirms malignancy. Procedure Code(s): --- Professional --- 33895, Sigmoidoscopy, flexible; with biopsy, single or multiple 23775, Ileoscopy, through stoma; diagnostic, with or without collection of specimen(s) by brushing or washing (separate procedure) Diagnosis Code(s): --- Professional --- K62.89, Other specified diseases of anus and rectum D49.0, Neoplasm of unspecified behavior of digestive system Z03.89, Encounter for observation for other suspected diseases and conditions ruled out R93.3, Abnormal findings on diagnostic imaging of other parts of digestive tract CPT copyright 2013 [employer]. All rights reserved. The codes documented in this report are preliminary and upon auditing coder review may be revised to meet current compliance requirements. Wes Calixto MD WES CALIXTO MD 09/17/2016 11:21 AM This report has been signed electronically. Number of Addenda: 0 Note Initiated On: 09/17/2016 8:51 AM [address] [id number]
--- NOTE | ~2016-09-13 | HP ---
History And Physical [place] [id number] [place]. [address] NAME: JODI BOSWELL : [birth year] STATUS : ADM IN [facility]#: [id number] AGE: 60 ADM/REG DATE : 09/13/16 MR#: [id number] REPORT SERV DATE: 09/13/16 DICTATED BY: MORGAN DHALIWAL DATE: 09/13/16 REPORT STATUS : Draft TRANSCRIBED BY: MODL DATE: 09/13/16 DATE OF ADMISSION: 09/13/2016 HISTORY OF PRESENT ILLNESS: This is a 60-year-old patient who was transferred here from [facility] after he presented there with altered mental status, shortness of breath. Also, it was reported that the patient had an increase in colostomy output. The patient was evaluated there and had a CT scan of the abdomen without contrast that showed a suspected distal obstruction proximal to the right lower quadrant colostomy. There is a distended loop of bowel distal colon that might be causing the obstruction, enlargement and irregularity of the rectum suspicious for neoplasm, dilatation of the residual sigmoid colon proximal to the rectum with compression on the ostomy side. Kidneys were also noted to be small probably due to chronic renal disease. The patient apparently gets most of his care at [place]. He lives in a long-term and has a diagnosis of bipolar and schizophrenia, which is well controlled. He was referred by Dr. Crowley to Dr. Madrid, who is the urologist because there was some suspicion of there possibly being a mass in or on the bladder; however, CT scan of the abdomen did not confirm this and the patient was then referred to a colorectal surgeon by the name of Dr. Dane Bartlett, whom he was to see on 09/14/2016. So, the patient did have a contrasted CT scan of the abdomen and pelvis done on 08/20/2016. Results of that are not available. The patient denies any abdominal pain. There is some slight nausea and a bit of shortness of breath. There was mention on transfer that he had some blood coming out of his rectum over at [facility]. The patient has no known allergies, although he has an allergy to latex. CURRENT MEDICATIONS: His current medications at home are 5 mg of Norvasc, benztropine 2 mg once daily and 20 mg of olanzapine. PAST MEDICAL HISTORY: Significant for hypertension, bipolar schizophrenia. Also, he had a traumatic injury to the abdomen that resulted from a fall and then that resulted in a perforated viscus and placement of colostomy, this was many years ago. Otherwise, the patient has no other known history. SOCIAL HISTORY: He does not smoke or drink. Lives in a long-term and denies any drug use. FAMILY HISTORY: Significant for metastatic lung cancer in his father. His mother was a diabetic and had kidney failure. There is no history of primary colon cancer in the family. The patient has a sister, who is his power of bench worker helper and most of the information was gotten from her. REVIEW OF SYSTEMS: A 12-point review of systems was done and is as per history of present illness. PHYSICAL EXAMINATION: GENERAL: The patient appears somewhat pale, but he is responsive and does not appear to be in any distress. VITAL SIGNS: His current vital signs are temperature of 97.6, blood pressure 106/73, O2 saturation of 99% on room air, heart rate is 100, and respiratory rate is 17. History And Physical [address] [address] NAME: JODI BOSWELL : [birth year] STATUS : ADM IN [facility]#: [id number] AGE: 60 ADM/REG DATE : 09/13/16 MR#: [id number] REPORT SERV DATE: 09/13/16 DICTATED BY: MORGAN DHALIWAL DATE: 09/13/16 REPORT STATUS : Draft TRANSCRIBED BY: BRONSON DATE: 09/13/16 HEENT: He has a nasogastric tube in place in the right naris draining dark brown gastric contents. The skin is warm and dry. The head is atraumatic and normocephalic. Pupils are equal, round, and reactive to light and accommodation. Extraocular eye movements are intact. Sclerae anicteric. Conjunctivae are pink. Nasal mucosa is within normal limits. Oral mucosa is moist. Tongue is midline. NECK: Supple without JVD, lymphadenopathy, or thyromegaly. LUNGS: Are diminished at the bases without wheezing. CARDIAC: Reveals a regular rate and rhythm with a soft 2/6 systolic murmur heard at the left sternal border. ABDOMEN: Mildly distended, but not tense. Soft to touch. There is no pain to palpation. No organosplenomegaly is appreciated. There is a colostomy at the right lower quadrant that does have liquid stool in it. He does not have a Bardales catheter in place. RECTAL: Deferred. GENITAL: Deferred. EXTREMITIES: Without cyanosis, clubbing, or edema. Pulses are palpable and symmetrical. NEUROLOGIC: Cranial nerves 2 through 12 are grossly intact. Motor and sensory are intact. LABORATORY DATA: Labs from [facility], his sodium is 117, potassium 2.6, chloride 87, bicarb 11, BUN 99, creatinine 8, blood sugar 144, ionized calcium is 0.99. White cell count is 27,000, hemoglobin is 15, hematocrit is 44, and platelet count is 508. PTT is 28, PT is 14, INR is 1.11. LFTs are within normal limits. Chest x-ray shows no cardiopulmonary disease. EKG shows right bundle-branch block and sinus tachycardia. There is no comparison from an old EKG. ASSESSMENT AND PLAN: 1. The patient with what appears to be a small bowel obstruction as per CT scan and some concern about rectal carcinoma. The patient was in the process of having this worked up before he got admitted. The plan will be to continue IV fluid hydration, correct electrolyte abnormalities, continue NG tube to low intermittent suction, and consult Surgery. I did speak to Dr. Nieves by phone this morning and we discussed the patient and he will be seeing the patient later this morning. 2. Acute kidney failure. Etiology not entirely certain. Could be possibly related to a combination of things, i.e. poor p.o. intake and then recent dye exposure. There may be an obstructive component as well. So, we will try and place a Bardales, get urine studies for sodium, creatinine, and osmolality. Get a serum osmolality. Hydrate the patient with normal saline and follow the labs closely and consult Nephrology to see the patient in the morning. I have already discussed this with Dr. Concepcion, who is on- call for the group. 3. Hypertension. Hold Norvasc for now. 4. Hyponatremia. Obtain urine sodium, creatinine, and osmolality, and serum osmolality. 5. Deep venous thrombosis prophylaxis. We will just do SCDs for now since there is possibility the patient may need to go to the operating room. 6. The patient has adequate IV access and is hemodynamically stable. We will place two peripherals and ask for a PICC line in the morning. 7. Metabolic acidosis, probably multifactorial, once again, related mostly to renal failure. We will follow that closely and give bicarbonate if needed. The patient is in guarded condition. History And Physical [address] [address] NAME: JODI BOSWELL : 53 STATUS : ADM IN [facility]#: [id number] AGE: 60 ADM/REG DATE : 09/13/16 MR#: [id number] REPORT SERV DATE: 09/13/16 DICTATED BY: MORGAN DHALIWAL DATE: 09/13/16 REPORT STATUS : Draft TRANSCRIBED BY: BRONSON DATE: 09/13/16 Total time spent with the patient discussing the patient's care with both Nephrology and Surgery, and updating the sister was 75 minutes commencing at 12:30 a.m. and ending at 01:45 a.m. /BRONSON Morgan Dhaliwal M.D. / [id number] CC: Morgan Dhaliwal M.D.
--- NOTE | ~2016-09-13 | OP ---
Record Of Operation [facility] [address] [place]. [address] NAME: JODI BOSWELL : 53 STATUS : ADM IN [facility]#: [id number] AGE: 60 ADM/REG DATE : 09/13/16 MR#: [id number] REPORT SERV DATE: 09/19/16 DICTATED BY: RAYA KRAMER DATE: 09/18/16 REPORT STATUS : Draft TRANSCRIBED BY: MODL DATE: 09/18/16 DATE OF PROCEDURE: REASON FOR CONSULTATION: New rectal mass. HISTORY: Mr. Boswell is a 60-year-old with history of a colostomy due to trauma 10 years ago. He states he started having some blood in his ostomy several weeks ago. He had a contrasted CT of his abdomen and pelvis performed at [facility] (which is not currently available), which showed a rectal mass. He was scheduled to see Dr. Dane Bartlett for this, but developed altered mental status and presented at [facility] where he was noted to have a creatinine of 8 and sodium of 120. [facility]. He had a Bardales placement for retention. His creatinine decreased down from 8 down to 1.91 today. He has had his electrolytes corrected. He had flexible sigmoidoscopy 2 days ago which revealed a large ulcerated rectal mass from 0 to 12 cm. His CEA this admission has been 2.3. Path returned today and revealed moderately differentiated adenocarcinoma. PAST MEDICAL HISTORY: Significant for hypertension, bipolar disorder, schizophrenia, and history of a right lower quadrant colostomy after a perforated viscus from a fall. FAMILY HISTORY: He has no family history of GI related malignancies. SOCIAL HISTORY: He lives in a correction. His sister is involved in his care. He denies any alcohol, tobacco, or illicit drug use. ALLERGIES: ARE TO LATEX. REVIEW OF SYSTEMS: A 14-point review of systems was performed and negative except for as per HPI. PHYSICAL EXAMINATION: VITAL SIGNS: Temp 98.1, pulse of 86, respiratory rate of 18, blood pressure 98/60. GENERAL: He is a well-developed man in no acute distress. LUNGS: Clear to auscultation. HEART: Regular rate and rhythm. ABDOMEN: Soft, nontender. He has a right lower quadrant ostomy. LOWER EXTREMITIES: He has no clubbing, cyanosis, or edema. NEURO: Nonfocal. PSYCHIATRIC: He has somewhat flat affect, is able to answer simple questions. Has some difficulty with his history. ASSESSMENT AND PLAN: Newly diagnosed colorectal cancer, staging is currently limited by his renal function at present. 1. I will try to get hold of the contrasted CT performed at [facility] in July to help stage him. 2. To answer the question of chemotherapy, radiation prior to surgery, we need these scans Record Of Operation [address] [place]. [address] NAME: JODI BOSWELL : 53 STATUS : ADM IN [facility]#: [id number] AGE: 60 ADM/REG DATE : 09/13/16 MR#: [id number] REPORT SERV DATE: 09/19/16 DICTATED BY: RAYA KRAMER DATE: 09/18/16 REPORT STATUS : Draft TRANSCRIBED BY: BRONSON DATE: 09/18/16 for discussion. As he already had a colostomy, we are not working to preserve sphincter tone and as he is living in a correction, this can make giving chemotherapy and radiation more challenging. I discussed this with the patient's sister, will follow with you. Thank you very much for the consultation. STEF/BRONSON Raya Kramer M.D. / [id number] CC: Dane De Los Santos M.D.
[2016-09-13 01:50] LABS: HEMOGLOBIN 15.1 g/dL (13.6-17.8); MEAN CORPUSCULAR HEMOGLOB 30.1 pg (26.0-34.0); MEAN PLATELET VOLUME 8.9 fL (9.2-13.0); PLATELET COUNT 448 10/3/uL (150-400); RBC DISTRIBUTION WIDTH 13.3 % (12.0-16.0); RED CELL COUNT 5.01 10/6/uL (4.7-6.1); WHITE BLOOD CELLS 20.5 10/3/uL (4.5-10.5)
[2016-09-13 01:56] LABS: INTERNATIONAL NORMAL RATI 1.1 UNITS (-); PARTIAL THROMBO TIME 26.2 SEC (22.5-37.2); PROTIME (NOT ORD) 14.5 SEC (12.0-14.5)
[2016-09-13 02:18] LABS: A/G RATIO 0.8 (0.7-1.9); ALBUMIN 3.3 G/DL (3.5-5.0); ALKALINE PHOSPHATASE 192 U/L (45-117); BUN (BLOOD UREA NITROGEN) 122 MG/DL (6-23); CALCIUM, SERUM 8.8 MG/DL (8.5-10.4); CHLORIDE, SERUM 78 MMOL/L (96-112); CO2 (CARBON DIOXIDE) 17 MMOL/L (24-34); CREATININE 8.04 MG/DL (0.70-1.30); FREE T4 1.31 NG/DL (0.76-1.46); GFR AFRICAN AMERICAN 8 ML/MIN (>=60); GFR NON AFRICAN AMERICAN 7 ML/MIN (>=60); GLOBULIN 4.2 G/DL (2.5-4.1); GLUCOSE, SERUM 115 MG/DL (60-99); POTASSIUM, SERUM 2.6 MMOL/L (3.5-5.3); SGOT(AST) 31 U/L (5-40); SGPT(ALT) 63 U/L (5-65); SODIUM, SERUM 120 MMOL/L (135-148); TOTAL BILIRUBIN 1.1 MG/DL (0-1.2); TOTAL PROTEIN 7.5 G/DL (6.0-8.5); TROPONIN I <0.02 NG/ML (<0.05)
[2016-09-13 02:30] LABS: MANUAL DIFF YES %
[2016-09-13 02:33] LABS: MEAN CORPUSCULAR VOLUME 91.8 fL (80-100)
[2016-09-13 02:34] LABS: MEAN CORPUS HGB CONC 32.6 g/dL (32.0-36.0)
[2016-09-13 02:41] LABS: BAND NEUTROPHILS 1 %; LYMPHOCYTES 8 %; LYMPHOCYTES ABSOLUTE (CALC) 1.64 10/3/uL (0.67-4.30); MONOCYTES 4 %; MONOCYTES ABSOLUTE (CALC) 0.82 10/3/uL (0.21-1.20); NEUTROPHILS ABSOLUTE (CALC) 18.04 10/3/uL (2.02-8.40); SEGMENTED NEUTROPHIL (0) 87 %; TOTAL NUCLEATED CELLS 100
[2016-09-13 02:42] LABS: PLATELET ESTIMATE SLT INC (ADEQUATE); RBC MORPHOLOGY NORM (NORMAL)
[2016-09-13 03:00] LABS: FOLATE 14.6 NG/ML (>5.2); PHOSPHORUS, SERUM 11.5 MG/DL (2.5-4.5)
[2016-09-13 03:12] LABS: PROSTATIC SPECIFIC AG 1.38 NG/ML (0.0-4.5)
[2016-09-13 04:20] LABS: PROCALCITONIN 2.59 ng/mL (<0.5)
[2016-09-13 08:06] LABS: ALBUMIN 3.1 G/DL (3.5-5.0); BUN (BLOOD UREA NITROGEN) 127 MG/DL (6-23); CALCIUM, SERUM 8.3 MG/DL (8.5-10.4); CHLORIDE, SERUM 81 MMOL/L (96-112); CO2 (CARBON DIOXIDE) 13 MMOL/L (24-34); CREATININE 7.78 MG/DL (0.70-1.30); GFR AFRICAN AMERICAN 8 ML/MIN (>=60); GFR NON AFRICAN AMERICAN 7 ML/MIN (>=60); GLUCOSE, SERUM 116 MG/DL (60-99); POTASSIUM, SERUM 2.4 MMOL/L (3.5-5.3); SODIUM, SERUM 124 MMOL/L (135-148)
[2016-09-13 08:22] LABS: HEMOGLOBIN 14.6 g/dL (13.6-17.8); MEAN CORPUSCULAR HEMOGLOB 29.8 pg (26.0-34.0); MEAN PLATELET VOLUME 8.9 fL (9.2-13.0); PLATELET COUNT 421 10/3/uL (150-400); RBC DISTRIBUTION WIDTH 13.4 % (12.0-16.0); WHITE BLOOD CELLS 17.9 10/3/uL (4.5-10.5)
[2016-09-13 08:42] LABS: MEAN CORPUS HGB CONC 38.5 g/dL (32.0-36.0); MEAN CORPUSCULAR VOLUME 77.3 fL (80-100)
[2016-09-13 08:45] LABS: MANUAL DIFF YES %
[2016-09-13 09:02] LABS: BAND NEUTROPHILS 3 %; LYMPHOCYTES 3 %; LYMPHOCYTES ABSOLUTE (CALC) 0.54 10/3/uL (0.67-4.30); MONOCYTES 5 %; NEUTROPHILS ABSOLUTE (CALC) 16.47 10/3/uL (2.02-8.40); SEGMENTED NEUTROPHIL (0) 89 %; TOTAL NUCLEATED CELLS 100
[2016-09-13 09:03] LABS: PLATELET ESTIMATE SLT INC (ADEQUATE); TOXIC GRANULATION 1+; VACUOLATED NEUTROPHILES OCC
[2016-09-13 09:04] LABS: RBC MORPHOLOGY NORM (NORMAL)
[2016-09-13 10:44] LABS: WBC (NOT ORDERED) (RFLEX) 0 (0-5)
[2016-09-13 10:59] LABS: ASCORBIC ACID (UR NOT ORDER) NEG (NEG); BILIRUBIN, URINE NEGATIVE (NEG); KETONE, URINE NEGATIVE (NEG); LEUKOCYTE ESTERASE(NOT OR NEG (NEG)
[2016-09-13 15:15] LABS: ALBUMIN 3.3 G/DL (3.5-5.0); CALCIUM, SERUM 8.1 MG/DL (8.5-10.4); CHLORIDE, SERUM 83 MMOL/L (96-112); GLUCOSE, SERUM 122 MG/DL (60-99); SODIUM, SERUM 127 MMOL/L (135-148)
[2016-09-13 15:17] LABS: BUN (BLOOD UREA NITROGEN) 135 MG/DL (6-23); CO2 (CARBON DIOXIDE) 18 MMOL/L (24-34); GFR AFRICAN AMERICAN 7 ML/MIN (>=60); GFR NON AFRICAN AMERICAN 6 ML/MIN (>=60); POTASSIUM, SERUM 2.6 MMOL/L (3.5-5.3)
[2016-09-13] MEDS ORDERED: COG2 PO (15:20)
[2016-09-13] MEDS ORDERED: ADVIL PO (15:20)
[2016-09-13] MEDS ORDERED: NORV5 PO (15:20)
[2016-09-13] MEDS ORDERED: MAXIMUM D3 PO (15:20)
[2016-09-13] MEDS ORDERED: ZYPREXA10 MG PO (15:20)
[2016-09-13 15:46] LABS: PHOSPHORUS, SERUM 10.7 MG/DL (2.5-4.5)
[2016-09-14 06:12] LABS: HEMOGLOBIN 14.8 g/dL (13.6-17.8); MEAN CORPUS HGB CONC 37.9 g/dL (32.0-36.0); MEAN CORPUSCULAR HEMOGLOB 30.5 pg (26.0-34.0); MEAN PLATELET VOLUME 9.1 fL (9.2-13.0); PLATELET COUNT 397 10/3/uL (150-400); RBC DISTRIBUTION WIDTH 13.3 % (12.0-16.0); RED CELL COUNT 4.85 10/6/uL (4.7-6.1); WHITE BLOOD CELLS 16.2 10/3/uL (4.5-10.5)
[2016-09-14 06:13] LABS: HEMATOCRIT 39.1 % (40.0-51.0); MANUAL DIFF YES %; MEAN CORPUSCULAR VOLUME 80.6 fL (80-100)
[2016-09-14 06:14] LABS: INTERNATIONAL NORMAL RATI 1.3 UNITS (-); PROTIME (NOT ORD) 15.8 SEC (12.0-14.5)
[2016-09-14 06:41] LABS: ALKALINE PHOSPHATASE 162 U/L (45-117); BUN (BLOOD UREA NITROGEN) 144 MG/DL (6-23); CALCIUM, SERUM 8.3 MG/DL (8.5-10.4); CHLORIDE, SERUM 77 MMOL/L (96-112); CO2 (CARBON DIOXIDE) 24 MMOL/L (24-34); CREATININE 7.64 MG/DL (0.70-1.30); DIRECT BILIRUBIN 0.2 MG/DL (0.0-0.4); GFR AFRICAN AMERICAN 8 ML/MIN (>=60); GFR NON AFRICAN AMERICAN 7 ML/MIN (>=60); GLUCOSE, SERUM 110 MG/DL (60-99); INDIRECT BILIRUBIN(NOT ORDER) 0.8 MG/DL (0.1-0.9); POTASSIUM, SERUM 2.2 MMOL/L (3.5-5.3); SGPT(ALT) 48 U/L (5-65); SODIUM, SERUM 130 MMOL/L (135-148); TOTAL PROTEIN 6.7 G/DL (6.0-8.5)
[2016-09-14 06:44] LABS: SGOT(AST) 30 U/L (5-40)
[2016-09-14 06:59] LABS: PHOSPHORUS, SERUM 9.5 MG/DL (2.5-4.5)
[2016-09-14 07:11] LABS: EOSINOPHILS 1 %; EOSINOPHILS ABSOLUTE (CALC) 0.16 10/3/uL (0.0-0.53); LYMPHOCYTES 6 %; LYMPHOCYTES ABSOLUTE (CALC) 0.65 10/3/uL (0.67-4.30); MONOCYTES 8 %; NEUTROPHILS ABSOLUTE (CALC) 14.09 10/3/uL (2.02-8.40); PLATELET ESTIMATE ADQ (ADEQUATE); RBC MORPHOLOGY NORM (NORMAL); SEGMENTED NEUTROPHIL (0) 85 %; TOTAL NUCLEATED CELLS 100
[2016-09-14 14:12] LABS: CEA 2.6 NG/ML
[2016-09-15 04:23] LABS: BASOPHILS 0.1 %; BASOPHILS ABSOLUTE 0.02 10/3/uL (0.0-0.16); EOSINOPHILS 0.1 %; EOSINOPHILS ABSOLUTE 0.01 10/3/uL (0.0-0.53); HEMATOCRIT 37.6 % (40.0-51.0); HEMOGLOBIN 13.8 g/dL (13.6-17.8); IMMATURE GRANULOCYTES 0.3 %; IMMATURE GRANULOCYTES ABSOLUTE 0.05 10/3/uL (0.0-0.11); LYMPHOCYTES 8.4 %; LYMPHOCYTES ABSOLUTE 1.27 10/3/uL (0.67-4.30); MEAN CORPUS HGB CONC 36.7 g/dL (32.0-36.0); MEAN CORPUSCULAR HEMOGLOB 30.4 pg (26.0-34.0); MEAN CORPUSCULAR VOLUME 82.8 fL (80-100); MEAN PLATELET VOLUME 9.3 fL (9.2-13.0); MONOCYTES 5.3 %; NEUTROPHILS 85.8 %; NEUTROPHILS ABSOLUTE 12.89 10/3/uL (2.02-8.40); PLATELET COUNT 358 10/3/uL (150-400); RBC DISTRIBUTION WIDTH 13.6 % (12.0-16.0); RED CELL COUNT 4.54 10/6/uL (4.7-6.1)
[2016-09-15 04:25] LABS: MANUAL DIFF NO %
[2016-09-15 04:26] LABS: PROTIME (NOT ORD) 13.4 SEC (12.0-14.5)
[2016-09-15 04:36] LABS: ALBUMIN 2.8 G/DL (3.5-5.0); ALKALINE PHOSPHATASE 151 U/L (45-117); CO2 (CARBON DIOXIDE) 25 MMOL/L (24-34); DIRECT BILIRUBIN 0.1 MG/DL (0.0-0.4); INDIRECT BILIRUBIN(NOT ORDER) 0.6 MG/DL (0.1-0.9); SGOT(AST) 25 U/L (5-40); SGPT(ALT) 40 U/L (5-65); TOTAL BILIRUBIN 0.7 MG/DL (0-1.2); TOTAL PROTEIN 6.4 G/DL (6.0-8.5)
[2016-09-15 04:47] LABS: BUN (BLOOD UREA NITROGEN) 136 MG/DL (6-23); CHLORIDE, SERUM 91 MMOL/L (96-112); CREATININE 6.41 MG/DL (0.70-1.30); GFR AFRICAN AMERICAN 10 ML/MIN (>=60); GFR NON AFRICAN AMERICAN 9 ML/MIN (>=60); GLUCOSE, SERUM 82 MG/DL (60-99)
[2016-09-15 05:04] LABS: OVALOCYTES 1+ (3-10/OIF) (0-2/OIF)
[2016-09-15 05:06] LABS: SODIUM, SERUM 136 MMOL/L (135-148)
[2016-09-15 05:09] LABS: PHOSPHORUS, SERUM 6.2 MG/DL (2.5-4.5)
[2016-09-16 06:11] LABS: BASOPHILS 0.4 %; BASOPHILS ABSOLUTE 0.05 10/3/uL (0.0-0.16); EOSINOPHILS 0.7 %; EOSINOPHILS ABSOLUTE 0.08 10/3/uL (0.0-0.53); HEMATOCRIT 38.3 % (40.0-51.0); HEMOGLOBIN 13.2 g/dL (13.6-17.8); IMMATURE GRANULOCYTES ABSOLUTE 0.12 10/3/uL (0.0-0.11); LYMPHOCYTES 13.3 %; LYMPHOCYTES ABSOLUTE 1.55 10/3/uL (0.67-4.30); MEAN CORPUSCULAR HEMOGLOB 29.9 pg (26.0-34.0); MEAN PLATELET VOLUME 9.2 fL (9.2-13.0); MONOCYTES 5.8 %; MONOCYTES ABSOLUTE 0.68 10/3/uL (0.21-1.20); NEUTROPHILS 78.8 %; NEUTROPHILS ABSOLUTE 9.19 10/3/uL (2.02-8.40); PLATELET COUNT 273 10/3/uL (150-400); RED CELL COUNT 4.42 10/6/uL (4.7-6.1); WHITE BLOOD CELLS 11.7 10/3/uL (4.5-10.5)
[2016-09-16 06:20] LABS: INTERNATIONAL NORMAL RATI 1.2 UNITS (-); PROTIME (NOT ORD) 15.1 SEC (12.0-14.5)
[2016-09-16 06:21] LABS: ALBUMIN 2.7 G/DL (3.5-5.0); CALCIUM, SERUM 8.2 MG/DL (8.5-10.4); CHLORIDE, SERUM 108 MMOL/L (96-112); DIRECT BILIRUBIN 0.1 MG/DL (0.0-0.4); GLUCOSE, SERUM 68 MG/DL (60-99); INDIRECT BILIRUBIN(NOT ORDER) 0.7 MG/DL (0.1-0.9); MANUAL DIFF NO %; MEAN CORPUS HGB CONC 34.5 g/dL (32.0-36.0); MEAN CORPUSCULAR VOLUME 86.7 fL (80-100); POTASSIUM, SERUM 3.6 MMOL/L (3.5-5.3); SGOT(AST) 25 U/L (5-40); SGPT(ALT) 37 U/L (5-65); TOTAL BILIRUBIN 0.8 MG/DL (0-1.2); TOTAL PROTEIN 6.2 G/DL (6.0-8.5)
[2016-09-16 06:23] LABS: CO2 (CARBON DIOXIDE) 19 MMOL/L (24-34); SODIUM, SERUM 144 MMOL/L (135-148)
[2016-09-16 06:24] LABS: ALKALINE PHOSPHATASE 132 U/L (45-117); BUN (BLOOD UREA NITROGEN) 109 MG/DL (6-23); CREATININE 3.76 MG/DL (0.70-1.30); GFR AFRICAN AMERICAN 19 ML/MIN (>=60); GFR NON AFRICAN AMERICAN 16 ML/MIN (>=60); PHOSPHORUS, SERUM 3.5 MG/DL (2.5-4.5)
[2016-09-17 04:15] LABS: BASOPHILS 0.8 %; BASOPHILS ABSOLUTE 0.09 10/3/uL (0.0-0.16); EOSINOPHILS 3.1 %; EOSINOPHILS ABSOLUTE 0.35 10/3/uL (0.0-0.53); HEMATOCRIT 37.1 % (40.0-51.0); HEMOGLOBIN 12.6 g/dL (13.6-17.8); IMMATURE GRANULOCYTES 1.9 %; IMMATURE GRANULOCYTES ABSOLUTE 0.22 10/3/uL (0.0-0.11); LYMPHOCYTES 10.3 %; LYMPHOCYTES ABSOLUTE 1.18 10/3/uL (0.67-4.30); MANUAL DIFF NO %; MEAN CORPUSCULAR HEMOGLOB 29.6 pg (26.0-34.0); MEAN CORPUSCULAR VOLUME 87.1 fL (80-100); MEAN PLATELET VOLUME 9.2 fL (9.2-13.0); MONOCYTES 15.2 %; MONOCYTES ABSOLUTE 1.74 10/3/uL (0.21-1.20); NEUTROPHILS 68.7 %; NEUTROPHILS ABSOLUTE 7.87 10/3/uL (2.02-8.40); PLATELET COUNT 256 10/3/uL (150-400); RBC DISTRIBUTION WIDTH 14.3 % (12.0-16.0); RED CELL COUNT 4.26 10/6/uL (4.7-6.1); WHITE BLOOD CELLS 11.5 10/3/uL (4.5-10.5)
[2016-09-17 04:38] LABS: ALBUMIN 2.4 G/DL (3.5-5.0); CALCIUM, SERUM 8.2 MG/DL (8.5-10.4); CHLORIDE, SERUM 103 MMOL/L (96-112); CO2 (CARBON DIOXIDE) 21 MMOL/L (24-34); POTASSIUM, SERUM 3.9 MMOL/L (3.5-5.3); SODIUM, SERUM 139 MMOL/L (135-148)
[2016-09-17 04:44] LABS: BUN (BLOOD UREA NITROGEN) 70 MG/DL (6-23); GFR AFRICAN AMERICAN 34 ML/MIN (>=60); GFR NON AFRICAN AMERICAN 30 ML/MIN (>=60); GLUCOSE, SERUM 93 MG/DL (60-99); PHOSPHORUS, SERUM 1.8 MG/DL (2.5-4.5)
[2016-09-18 04:15] LABS: BASOPHILS 0.3 %; BASOPHILS ABSOLUTE 0.04 10/3/uL (0.0-0.16); EOSINOPHILS 3.2 %; EOSINOPHILS ABSOLUTE 0.44 10/3/uL (0.0-0.53); HEMATOCRIT 36.4 % (40.0-51.0); HEMOGLOBIN 12.4 g/dL (13.6-17.8); IMMATURE GRANULOCYTES 1.9 %; IMMATURE GRANULOCYTES ABSOLUTE 0.26 10/3/uL (0.0-0.11); LYMPHOCYTES 8.3 %; LYMPHOCYTES ABSOLUTE 1.15 10/3/uL (0.67-4.30); MEAN CORPUS HGB CONC 34.1 g/dL (32.0-36.0); MEAN CORPUSCULAR HEMOGLOB 29.2 pg (26.0-34.0); MEAN CORPUSCULAR VOLUME 85.8 fL (80-100); MONOCYTES 14.1 %; MONOCYTES ABSOLUTE 1.95 10/3/uL (0.21-1.20); NEUTROPHILS 72.2 %; NEUTROPHILS ABSOLUTE 9.95 10/3/uL (2.02-8.40); PLATELET COUNT 230 10/3/uL (150-400); RBC DISTRIBUTION WIDTH 13.9 % (12.0-16.0); RED CELL COUNT 4.24 10/6/uL (4.7-6.1); WHITE BLOOD CELLS 13.8 10/3/uL (4.5-10.5)
[2016-09-18 04:16] LABS: MANUAL DIFF NO %
[2016-09-18 04:27] LABS: CALCIUM, SERUM 7.7 MG/DL (8.5-10.4); CHLORIDE, SERUM 99 MMOL/L (96-112); CO2 (CARBON DIOXIDE) 25 MMOL/L (24-34); CREATININE 1.91 MG/DL (0.70-1.30); GFR AFRICAN AMERICAN 43 ML/MIN (>=60); GFR NON AFRICAN AMERICAN 37 ML/MIN (>=60); GLUCOSE, SERUM 106 MG/DL (60-99); POTASSIUM, SERUM 3.8 MMOL/L (3.5-5.3); SODIUM, SERUM 136 MMOL/L (135-148)
[2016-09-18 04:28] LABS: BUN (BLOOD UREA NITROGEN) 56 MG/DL (6-23); PHOSPHORUS, SERUM 2.4 MG/DL (2.5-4.5)
[2016-09-18 05:04] LABS: PROCALCITONIN 0.51 ng/mL (<0.5)
[2016-09-19 06:06] LABS: BASOPHILS 0.4 %; BASOPHILS ABSOLUTE 0.05 10/3/uL (0.0-0.16); EOSINOPHILS 3.5 %; EOSINOPHILS ABSOLUTE 0.44 10/3/uL (0.0-0.53); HEMATOCRIT 36.7 % (40.0-51.0); HEMOGLOBIN 12.8 g/dL (13.6-17.8); LYMPHOCYTES 8.3 %; LYMPHOCYTES ABSOLUTE 1.05 10/3/uL (0.67-4.30); MEAN CORPUS HGB CONC 34.9 g/dL (32.0-36.0); MEAN CORPUSCULAR HEMOGLOB 30.4 pg (26.0-34.0); MEAN CORPUSCULAR VOLUME 87.2 fL (80-100); MEAN PLATELET VOLUME 9.3 fL (9.2-13.0); MONOCYTES 9.4 %; MONOCYTES ABSOLUTE 1.19 10/3/uL (0.21-1.20); NEUTROPHILS 74.4 %; NEUTROPHILS ABSOLUTE 9.41 10/3/uL (2.02-8.40); PLATELET COUNT 199 10/3/uL (150-400); RBC DISTRIBUTION WIDTH 13.7 % (12.0-16.0); RED CELL COUNT 4.21 10/6/uL (4.7-6.1); WHITE BLOOD CELLS 12.6 10/3/uL (4.5-10.5)
[2016-09-19 06:16] LABS: ALBUMIN 2.3 G/DL (3.5-5.0); CALCIUM, SERUM 8.4 MG/DL (8.5-10.4); CHLORIDE, SERUM 99 MMOL/L (96-112); CO2 (CARBON DIOXIDE) 24 MMOL/L (24-34); CREATININE 1.82 MG/DL (0.70-1.30); GFR AFRICAN AMERICAN 45 ML/MIN (>=60); GFR NON AFRICAN AMERICAN 39 ML/MIN (>=60); GLUCOSE, SERUM 96 MG/DL (60-99); PHOSPHORUS, SERUM 2.4 MG/DL (2.5-4.5); SODIUM, SERUM 134 MMOL/L (135-148)
[2016-09-19 06:17] LABS: BUN (BLOOD UREA NITROGEN) 44 MG/DL (6-23)
[2016-09-19 06:18] LABS: MANUAL DIFF NO %
[2016-09-20 05:07] LABS: BASOPHILS 0.5 %; BASOPHILS ABSOLUTE 0.06 10/3/uL (0.0-0.16); EOSINOPHILS 4.4 %; HEMATOCRIT 37.4 % (40.0-51.0); HEMOGLOBIN 12.9 g/dL (13.6-17.8); IMMATURE GRANULOCYTES 3.5 %; IMMATURE GRANULOCYTES ABSOLUTE 0.39 10/3/uL (0.0-0.11); LYMPHOCYTES 11.3 %; LYMPHOCYTES ABSOLUTE 1.27 10/3/uL (0.67-4.30); MEAN CORPUS HGB CONC 34.5 g/dL (32.0-36.0); MEAN CORPUSCULAR HEMOGLOB 29.9 pg (26.0-34.0); MEAN CORPUSCULAR VOLUME 86.6 fL (80-100); MEAN PLATELET VOLUME 9.5 fL (9.2-13.0); MONOCYTES 8.8 %; MONOCYTES ABSOLUTE 0.99 10/3/uL (0.21-1.20); NEUTROPHILS 71.5 %; NEUTROPHILS ABSOLUTE 8.04 10/3/uL (2.02-8.40); PLATELET COUNT 217 10/3/uL (150-400); RBC DISTRIBUTION WIDTH 13.6 % (12.0-16.0); RED CELL COUNT 4.32 10/6/uL (4.7-6.1); WHITE BLOOD CELLS 11.3 10/3/uL (4.5-10.5)
[2016-09-20 05:17] LABS: MANUAL DIFF NO %
[2016-09-20 05:26] LABS: ALBUMIN 2.4 G/DL (3.5-5.0); CALCIUM, SERUM 8.7 MG/DL (8.5-10.4); CHLORIDE, SERUM 98 MMOL/L (96-112); CO2 (CARBON DIOXIDE) 22 MMOL/L (24-34); GFR AFRICAN AMERICAN 49 ML/MIN (>=60); GFR NON AFRICAN AMERICAN 43 ML/MIN (>=60); GLUCOSE, SERUM 94 MG/DL (60-99); PHOSPHORUS, SERUM 2.6 MG/DL (2.5-4.5); POTASSIUM, SERUM 4.1 MMOL/L (3.5-5.3); SODIUM, SERUM 133 MMOL/L (135-148)
[2016-09-20 05:31] LABS: BUN (BLOOD UREA NITROGEN) 39 MG/DL (6-23)
[2016-09-21 05:17] LABS: BASOPHILS 0.3 %; BASOPHILS ABSOLUTE 0.03 10/3/uL (0.0-0.16); EOSINOPHILS 4.1 %; EOSINOPHILS ABSOLUTE 0.46 10/3/uL (0.0-0.53); HEMATOCRIT 37.6 % (40.0-51.0); HEMOGLOBIN 13.2 g/dL (13.6-17.8); IMMATURE GRANULOCYTES 2.3 %; IMMATURE GRANULOCYTES ABSOLUTE 0.26 10/3/uL (0.0-0.11); LYMPHOCYTES 7.4 %; LYMPHOCYTES ABSOLUTE 0.83 10/3/uL (0.67-4.30); MEAN CORPUS HGB CONC 35.1 g/dL (32.0-36.0); MEAN CORPUSCULAR HEMOGLOB 30.3 pg (26.0-34.0); MEAN CORPUSCULAR VOLUME 86.4 fL (80-100); MEAN PLATELET VOLUME 9.7 fL (9.2-13.0); MONOCYTES 11.5 %; MONOCYTES ABSOLUTE 1.29 10/3/uL (0.21-1.20); NEUTROPHILS 74.4 %; PLATELET COUNT 218 10/3/uL (150-400); RBC DISTRIBUTION WIDTH 13.6 % (12.0-16.0); RED CELL COUNT 4.35 10/6/uL (4.7-6.1); WHITE BLOOD CELLS 11.2 10/3/uL (4.5-10.5)
[2016-09-21 05:19] LABS: MANUAL DIFF NO %
[2016-09-21 05:39] LABS: ALBUMIN 2.4 G/DL (3.5-5.0); BUN (BLOOD UREA NITROGEN) 40 MG/DL (6-23); CALCIUM, SERUM 8.5 MG/DL (8.5-10.4); CHLORIDE, SERUM 98 MMOL/L (96-112); CO2 (CARBON DIOXIDE) 24 MMOL/L (24-34); CREATININE 1.92 MG/DL (0.70-1.30); GFR AFRICAN AMERICAN 43 ML/MIN (>=60); GFR NON AFRICAN AMERICAN 37 ML/MIN (>=60); GLUCOSE, SERUM 121 MG/DL (60-99); PHOSPHORUS, SERUM 3.6 MG/DL (2.5-4.5); POTASSIUM, SERUM 3.7 MMOL/L (3.5-5.3); SODIUM, SERUM 133 MMOL/L (135-148)
[2016-09-22 06:33] LABS: BASOPHILS 0.1 %; BASOPHILS ABSOLUTE 0.01 10/3/uL (0.0-0.16); EOSINOPHILS 2.2 %; EOSINOPHILS ABSOLUTE 0.26 10/3/uL (0.0-0.53); HEMATOCRIT 36.4 % (40.0-51.0); HEMOGLOBIN 12.8 g/dL (13.6-17.8); IMMATURE GRANULOCYTES 1.6 %; IMMATURE GRANULOCYTES ABSOLUTE 0.18 10/3/uL (0.0-0.11); LYMPHOCYTES ABSOLUTE 0.93 10/3/uL (0.67-4.30); MEAN CORPUS HGB CONC 35.2 g/dL (32.0-36.0); MEAN CORPUSCULAR HEMOGLOB 30.3 pg (26.0-34.0); MEAN CORPUSCULAR VOLUME 86.3 fL (80-100); MEAN PLATELET VOLUME 9.6 fL (9.2-13.0); MONOCYTES 9.6 %; MONOCYTES ABSOLUTE 1.11 10/3/uL (0.21-1.20); NEUTROPHILS 78.5 %; NEUTROPHILS ABSOLUTE 9.11 10/3/uL (2.02-8.40); PLATELET COUNT 230 10/3/uL (150-400); RBC DISTRIBUTION WIDTH 13.6 % (12.0-16.0); RED CELL COUNT 4.22 10/6/uL (4.7-6.1); WHITE BLOOD CELLS 11.6 10/3/uL (4.5-10.5)
[2016-09-22 06:34] LABS: MANUAL DIFF NO %
[2016-09-22 06:49] LABS: A/G RATIO 0.6 (0.7-1.9); ALBUMIN 2.4 G/DL (3.5-5.0); BUN (BLOOD UREA NITROGEN) 38 MG/DL (6-23); CALCIUM, SERUM 8.3 MG/DL (8.5-10.4); CHLORIDE, SERUM 98 MMOL/L (96-112); CO2 (CARBON DIOXIDE) 23 MMOL/L (24-34); CREATININE 1.91 MG/DL (0.70-1.30); GFR AFRICAN AMERICAN 43 ML/MIN (>=60); GFR NON AFRICAN AMERICAN 37 ML/MIN (>=60); GLOBULIN 3.8 G/DL (2.5-4.1); POTASSIUM, SERUM 3.8 MMOL/L (3.5-5.3); SGOT(AST) 34 U/L (5-40); SGPT(ALT) 58 U/L (5-65); SODIUM, SERUM 132 MMOL/L (135-148); TOTAL PROTEIN 6.2 G/DL (6.0-8.5)
[2016-09-22 06:54] LABS: ALKALINE PHOSPHATASE 185 U/L (45-117); GLUCOSE, SERUM 96 MG/DL (60-99); TOTAL BILIRUBIN 0.3 MG/DL (0-1.2)
[2016-09-23 05:22] LABS: BASOPHILS 0.2 %; BASOPHILS ABSOLUTE 0.02 10/3/uL (0.0-0.16); EOSINOPHILS ABSOLUTE 0.26 10/3/uL (0.0-0.53); HEMATOCRIT 35.7 % (40.0-51.0); HEMOGLOBIN 12.5 g/dL (13.6-17.8); IMMATURE GRANULOCYTES 1.6 %; IMMATURE GRANULOCYTES ABSOLUTE 0.14 10/3/uL (0.0-0.11); LYMPHOCYTES 9.8 %; LYMPHOCYTES ABSOLUTE 0.86 10/3/uL (0.67-4.30); MEAN CORPUSCULAR HEMOGLOB 29.3 pg (26.0-34.0); MEAN PLATELET VOLUME 9.3 fL (9.2-13.0); MONOCYTES 16.3 %; MONOCYTES ABSOLUTE 1.43 10/3/uL (0.21-1.20); NEUTROPHILS 69.1 %; NEUTROPHILS ABSOLUTE 6.04 10/3/uL (2.02-8.40); PLATELET COUNT 249 10/3/uL (150-400); RBC DISTRIBUTION WIDTH 13.7 % (12.0-16.0); RED CELL COUNT 4.27 10/6/uL (4.7-6.1); WHITE BLOOD CELLS 8.8 10/3/uL (4.5-10.5)
[2016-09-23 05:34] LABS: MANUAL DIFF NO %; MEAN CORPUSCULAR VOLUME 83.6 fL (80-100)
[2016-09-23 05:42] LABS: A/G RATIO 0.6 (0.7-1.9); ALBUMIN 2.4 G/DL (3.5-5.0); ALKALINE PHOSPHATASE 183 U/L (45-117); BUN (BLOOD UREA NITROGEN) 38 MG/DL (6-23); CALCIUM, SERUM 8.5 MG/DL (8.5-10.4); CHLORIDE, SERUM 95 MMOL/L (96-112); CO2 (CARBON DIOXIDE) 25 MMOL/L (24-34); CREATININE 1.89 MG/DL (0.70-1.30); GFR AFRICAN AMERICAN 43 ML/MIN (>=60); GFR NON AFRICAN AMERICAN 37 ML/MIN (>=60); GLOBULIN 3.8 G/DL (2.5-4.1); GLUCOSE, SERUM 94 MG/DL (60-99); POTASSIUM, SERUM 3.8 MMOL/L (3.5-5.3); SGOT(AST) 32 U/L (5-40); SGPT(ALT) 59 U/L (5-65); SODIUM, SERUM 130 MMOL/L (135-148); TOTAL BILIRUBIN 0.4 MG/DL (0-1.2); TOTAL PROTEIN 6.2 G/DL (6.0-8.5)
[2016-09-24 05:07] LABS: BASOPHILS 0.4 %; BASOPHILS ABSOLUTE 0.03 10/3/uL (0.0-0.16); EOSINOPHILS 2.3 %; EOSINOPHILS ABSOLUTE 0.19 10/3/uL (0.0-0.53); HEMATOCRIT 37.2 % (40.0-51.0); HEMOGLOBIN 12.9 g/dL (13.6-17.8); IMMATURE GRANULOCYTES ABSOLUTE 0.08 10/3/uL (0.0-0.11); LYMPHOCYTES 12.1 %; LYMPHOCYTES ABSOLUTE 1.02 10/3/uL (0.67-4.30); MANUAL DIFF NO %; MEAN CORPUS HGB CONC 34.7 g/dL (32.0-36.0); MEAN CORPUSCULAR HEMOGLOB 30.1 pg (26.0-34.0); MEAN CORPUSCULAR VOLUME 86.7 fL (80-100); MEAN PLATELET VOLUME 9.4 fL (9.2-13.0); MONOCYTES 14.3 %; NEUTROPHILS 69.9 %; NEUTROPHILS ABSOLUTE 5.88 10/3/uL (2.02-8.40); PLATELET COUNT 265 10/3/uL (150-400); RBC DISTRIBUTION WIDTH 13.6 % (12.0-16.0); RED CELL COUNT 4.29 10/6/uL (4.7-6.1); WHITE BLOOD CELLS 8.4 10/3/uL (4.5-10.5)
[2016-09-24 05:10] LABS: A/G RATIO 0.6 (0.7-1.9); ALBUMIN 2.5 G/DL (3.5-5.0); BUN (BLOOD UREA NITROGEN) 39 MG/DL (6-23); CALCIUM, SERUM 8.3 MG/DL (8.5-10.4); CHLORIDE, SERUM 95 MMOL/L (96-112); CO2 (CARBON DIOXIDE) 25 MMOL/L (24-34); CREATININE 2.07 MG/DL (0.70-1.30); GFR AFRICAN AMERICAN 39 ML/MIN (>=60); GFR NON AFRICAN AMERICAN 34 ML/MIN (>=60); GLOBULIN 3.9 G/DL (2.5-4.1); GLUCOSE, SERUM 96 MG/DL (60-99); POTASSIUM, SERUM 3.7 MMOL/L (3.5-5.3); SGOT(AST) 38 U/L (5-40); SGPT(ALT) 67 U/L (5-65); SODIUM, SERUM 133 MMOL/L (135-148); TOTAL BILIRUBIN 0.2 MG/DL (0-1.2); TOTAL PROTEIN 6.4 G/DL (6.0-8.5)
[2016-09-24 05:12] LABS: ALKALINE PHOSPHATASE 198 U/L (45-117)
[2016-09-25 07:52] LABS: BASOPHILS 0.2 %; BASOPHILS ABSOLUTE 0.02 10/3/uL (0.0-0.16); EOSINOPHILS 0.9 %; EOSINOPHILS ABSOLUTE 0.11 10/3/uL (0.0-0.53); HEMATOCRIT 37.6 % (40.0-51.0); HEMOGLOBIN 12.9 g/dL (13.6-17.8); IMMATURE GRANULOCYTES 0.5 %; IMMATURE GRANULOCYTES ABSOLUTE 0.06 10/3/uL (0.0-0.11); LYMPHOCYTES 4.6 %; LYMPHOCYTES ABSOLUTE 0.54 10/3/uL (0.67-4.30); MEAN CORPUS HGB CONC 34.3 g/dL (32.0-36.0); MEAN CORPUSCULAR HEMOGLOB 29.4 pg (26.0-34.0); MEAN CORPUSCULAR VOLUME 85.6 fL (80-100); MEAN PLATELET VOLUME 9.8 fL (9.2-13.0); MONOCYTES 11.3 %; MONOCYTES ABSOLUTE 1.33 10/3/uL (0.21-1.20); NEUTROPHILS 82.5 %; NEUTROPHILS ABSOLUTE 9.72 10/3/uL (2.02-8.40); PLATELET COUNT 283 10/3/uL (150-400); RBC DISTRIBUTION WIDTH 13.7 % (12.0-16.0); RED CELL COUNT 4.39 10/6/uL (4.7-6.1)
[2016-09-25 07:56] LABS: MANUAL DIFF NO %; WHITE BLOOD CELLS 11.8 10/3/uL (4.5-10.5)
[2016-09-25 08:10] LABS: A/G RATIO 0.7 (0.7-1.9); ALBUMIN 2.5 G/DL (3.5-5.0); BUN (BLOOD UREA NITROGEN) 41 MG/DL (6-23); CHLORIDE, SERUM 99 MMOL/L (96-112); CO2 (CARBON DIOXIDE) 22 MMOL/L (24-34); CREATININE 2.06 MG/DL (0.70-1.30); GFR AFRICAN AMERICAN 39 ML/MIN (>=60); GFR NON AFRICAN AMERICAN 34 ML/MIN (>=60); GLOBULIN 3.5 G/DL (2.5-4.1); GLUCOSE, SERUM 83 MG/DL (60-99); POTASSIUM, SERUM 3.7 MMOL/L (3.5-5.3); SGOT(AST) 47 U/L (5-40); SGPT(ALT) 84 U/L (5-65); SODIUM, SERUM 134 MMOL/L (135-148); TOTAL BILIRUBIN 0.3 MG/DL (0-1.2)
[2016-09-25 08:12] LABS: ALKALINE PHOSPHATASE 220 U/L (45-117)
[2016-09-27 05:04] LABS: BASOPHILS 0.3 %; BASOPHILS ABSOLUTE 0.02 10/3/uL (0.0-0.16); EOSINOPHILS 1.9 %; EOSINOPHILS ABSOLUTE 0.14 10/3/uL (0.0-0.53); HEMOGLOBIN 10.8 g/dL (13.6-17.8); IMMATURE GRANULOCYTES 0.5 %; IMMATURE GRANULOCYTES ABSOLUTE 0.04 10/3/uL (0.0-0.11); LYMPHOCYTES 12.3 %; LYMPHOCYTES ABSOLUTE 0.92 10/3/uL (0.67-4.30); MEAN CORPUS HGB CONC 33.3 g/dL (32.0-36.0); MEAN CORPUSCULAR HEMOGLOB 28.9 pg (26.0-34.0); MEAN CORPUSCULAR VOLUME 86.6 fL (80-100); MEAN PLATELET VOLUME 9.1 fL (9.2-13.0); MONOCYTES 9.8 %; MONOCYTES ABSOLUTE 0.73 10/3/uL (0.21-1.20); NEUTROPHILS 75.2 %; NEUTROPHILS ABSOLUTE 5.63 10/3/uL (2.02-8.40); PLATELET COUNT 263 10/3/uL (150-400); RBC DISTRIBUTION WIDTH 13.8 % (12.0-16.0); RED CELL COUNT 3.74 10/6/uL (4.7-6.1); WHITE BLOOD CELLS 7.5 10/3/uL (4.5-10.5)
[2016-09-27 05:05] LABS: HEMATOCRIT 32.4 % (40.0-51.0); MANUAL DIFF NO %
[2016-09-27 05:18] LABS: A/G RATIO 0.6 (0.7-1.9); ALBUMIN 2.1 G/DL (3.5-5.0); CALCIUM, SERUM 7.8 MG/DL (8.5-10.4); CHLORIDE, SERUM 105 MMOL/L (96-112); CO2 (CARBON DIOXIDE) 20 MMOL/L (24-34); CREATININE 1.68 MG/DL (0.70-1.30); GFR AFRICAN AMERICAN 50 ML/MIN (>=60); GFR NON AFRICAN AMERICAN 43 ML/MIN (>=60); GLOBULIN 3.4 G/DL (2.5-4.1); GLUCOSE, SERUM 88 MG/DL (60-99); POTASSIUM, SERUM 3.4 MMOL/L (3.5-5.3); SGOT(AST) 44 U/L (5-40); SGPT(ALT) 78 U/L (5-65); SODIUM, SERUM 136 MMOL/L (135-148); TOTAL BILIRUBIN 0.2 MG/DL (0-1.2); TOTAL PROTEIN 5.5 G/DL (6.0-8.5)
[2016-09-27 05:19] LABS: ALKALINE PHOSPHATASE 174 U/L (45-117); BUN (BLOOD UREA NITROGEN) 30 MG/DL (6-23)
[2016-09-28 06:30] LABS: BASOPHILS 0.2 %; BASOPHILS ABSOLUTE 0.01 10/3/uL (0.0-0.16); EOSINOPHILS ABSOLUTE 0.06 10/3/uL (0.0-0.53); HEMATOCRIT 32.8 % (40.0-51.0); HEMOGLOBIN 11.2 g/dL (13.6-17.8); IMMATURE GRANULOCYTES 0.3 %; IMMATURE GRANULOCYTES ABSOLUTE 0.02 10/3/uL (0.0-0.11); LYMPHOCYTES 10.2 %; LYMPHOCYTES ABSOLUTE 0.61 10/3/uL (0.67-4.30); MANUAL DIFF NO %; MEAN CORPUS HGB CONC 34.1 g/dL (32.0-36.0); MEAN CORPUSCULAR HEMOGLOB 29.8 pg (26.0-34.0); MEAN CORPUSCULAR VOLUME 87.2 fL (80-100); MEAN PLATELET VOLUME 8.8 fL (9.2-13.0); MONOCYTES 8.9 %; MONOCYTES ABSOLUTE 0.53 10/3/uL (0.21-1.20); NEUTROPHILS 79.4 %; NEUTROPHILS ABSOLUTE 4.74 10/3/uL (2.02-8.40); PLATELET COUNT 267 10/3/uL (150-400); RBC DISTRIBUTION WIDTH 14.1 % (12.0-16.0); RED CELL COUNT 3.76 10/6/uL (4.7-6.1)
[2016-09-28 06:52] LABS: A/G RATIO 0.7 (0.7-1.9); ALBUMIN 2.3 G/DL (3.5-5.0); ALKALINE PHOSPHATASE 184 U/L (45-117); BUN (BLOOD UREA NITROGEN) 24 MG/DL (6-23); CHLORIDE, SERUM 108 MMOL/L (96-112); CO2 (CARBON DIOXIDE) 17 MMOL/L (24-34); CREATININE 1.52 MG/DL (0.70-1.30); GFR AFRICAN AMERICAN 57 ML/MIN (>=60); GFR NON AFRICAN AMERICAN 49 ML/MIN (>=60); GLOBULIN 3.2 G/DL (2.5-4.1); GLUCOSE, SERUM 92 MG/DL (60-99); POTASSIUM, SERUM 3.7 MMOL/L (3.5-5.3); SGOT(AST) 35 U/L (5-40); SGPT(ALT) 72 U/L (5-65); SODIUM, SERUM 137 MMOL/L (135-148); TOTAL BILIRUBIN 0.4 MG/DL (0-1.2); TOTAL PROTEIN 5.5 G/DL (6.0-8.5)
[2016-09-29 06:58] LABS: BASOPHILS 0.2 %; BASOPHILS ABSOLUTE 0.01 10/3/uL (0.0-0.16); EOSINOPHILS 0.3 %; EOSINOPHILS ABSOLUTE 0.02 10/3/uL (0.0-0.53); HEMATOCRIT 32.3 % (40.0-51.0); HEMOGLOBIN 11.2 g/dL (13.6-17.8); LYMPHOCYTES 7.3 %; LYMPHOCYTES ABSOLUTE 0.42 10/3/uL (0.67-4.30); MEAN CORPUS HGB CONC 34.7 g/dL (32.0-36.0); MEAN CORPUSCULAR HEMOGLOB 30.5 pg (26.0-34.0); MEAN PLATELET VOLUME 8.8 fL (9.2-13.0); MONOCYTES 8.7 %; NEUTROPHILS 83.5 %; NEUTROPHILS ABSOLUTE 4.82 10/3/uL (2.02-8.40); PLATELET COUNT 268 10/3/uL (150-400); RBC DISTRIBUTION WIDTH 14.1 % (12.0-16.0); RED CELL COUNT 3.67 10/6/uL (4.7-6.1); WHITE BLOOD CELLS 5.8 10/3/uL (4.5-10.5)
[2016-09-29 06:59] LABS: MANUAL DIFF NO %
[2016-09-29 07:11] LABS: BUN (BLOOD UREA NITROGEN) 27 MG/DL (6-23); CALCIUM, SERUM 8.1 MG/DL (8.5-10.4); CHLORIDE, SERUM 109 MMOL/L (96-112); CO2 (CARBON DIOXIDE) 18 MMOL/L (24-34); CREATININE 1.58 MG/DL (0.70-1.30); GFR AFRICAN AMERICAN 54 ML/MIN (>=60); GFR NON AFRICAN AMERICAN 47 ML/MIN (>=60); GLUCOSE, SERUM 87 MG/DL (60-99); PHOSPHORUS, SERUM 2.9 MG/DL (2.5-4.5); POTASSIUM, SERUM 3.6 MMOL/L (3.5-5.3); SODIUM, SERUM 139 MMOL/L (135-148)
[2016-09-30 04:54] LABS: INTERNATIONAL NORMAL RATI 1.2 UNITS (-); PROTIME (NOT ORD) 14.8 SEC (12.0-14.5)
[2016-09-30 05:18] LABS: ALBUMIN 2.4 G/DL (3.5-5.0); CALCIUM, SERUM 8.2 MG/DL (8.5-10.4); CHLORIDE, SERUM 110 MMOL/L (96-112); CO2 (CARBON DIOXIDE) 18 MMOL/L (24-34); GFR AFRICAN AMERICAN 53 ML/MIN (>=60); GFR NON AFRICAN AMERICAN 46 ML/MIN (>=60); GLUCOSE, SERUM 89 MG/DL (60-99); PHOSPHORUS, SERUM 3.1 MG/DL (2.5-4.5); POTASSIUM, SERUM 3.5 MMOL/L (3.5-5.3); SODIUM, SERUM 140 MMOL/L (135-148)
[2016-09-30 05:20] LABS: BUN (BLOOD UREA NITROGEN) 31 MG/DL (6-23)
[2016-09-30 06:20] LABS: HEMATOCRIT 32.8 % (40.0-51.0); HEMOGLOBIN 11.2 g/dL (13.6-17.8); MEAN CORPUS HGB CONC 34.1 g/dL (32.0-36.0); MEAN CORPUSCULAR HEMOGLOB 30.2 pg (26.0-34.0); MEAN CORPUSCULAR VOLUME 88.4 fL (80-100); MEAN PLATELET VOLUME 8.9 fL (9.2-13.0); PLATELET COUNT 296 10/3/uL (150-400); RBC DISTRIBUTION WIDTH 14.3 % (12.0-16.0); RED CELL COUNT 3.71 10/6/uL (4.7-6.1); WHITE BLOOD CELLS 5.8 10/3/uL (4.5-10.5)
[2016-09-30 06:23] LABS: MANUAL DIFF YES %
[2016-09-30 07:17] LABS: BAND NEUTROPHILS 2 %; IMMATURE GRANS ABSOLUTE (CALC) 0.06 10/3/uL (0.0-0.11); LYMPHOCYTES 7 %; LYMPHOCYTES ABSOLUTE (CALC) 0.41 10/3/uL (0.67-4.30); METAMYELOCYTES 1 %; MONOCYTES 4 %; MONOCYTES ABSOLUTE (CALC) 0.23 10/3/uL (0.21-1.20); SEGMENTED NEUTROPHIL (0) 86 %; TOTAL NUCLEATED CELLS 100
[2016-09-30 07:18] LABS: PLATELET ESTIMATE ADQ (ADEQUATE); RBC MORPHOLOGY NORM (NORMAL)
[2016-10-01 04:44] LABS: BASOPHILS 0.2 %; BASOPHILS ABSOLUTE 0.01 10/3/uL (0.0-0.16); EOSINOPHILS 0.5 %; EOSINOPHILS ABSOLUTE 0.03 10/3/uL (0.0-0.53); HEMATOCRIT 33.3 % (40.0-51.0); HEMOGLOBIN 11.3 g/dL (13.6-17.8); IMMATURE GRANULOCYTES 0.5 %; IMMATURE GRANULOCYTES ABSOLUTE 0.03 10/3/uL (0.0-0.11); LYMPHOCYTES 7.7 %; LYMPHOCYTES ABSOLUTE 0.47 10/3/uL (0.67-4.30); MEAN CORPUS HGB CONC 33.9 g/dL (32.0-36.0); MEAN CORPUSCULAR HEMOGLOB 29.3 pg (26.0-34.0); MEAN CORPUSCULAR VOLUME 86.3 fL (80-100); MEAN PLATELET VOLUME 9.3 fL (9.2-13.0); MONOCYTES 8.8 %; MONOCYTES ABSOLUTE 0.54 10/3/uL (0.21-1.20); NEUTROPHILS 82.3 %; NEUTROPHILS ABSOLUTE 5.03 10/3/uL (2.02-8.40); PLATELET COUNT 314 10/3/uL (150-400); RBC DISTRIBUTION WIDTH 14.5 % (12.0-16.0); RED CELL COUNT 3.86 10/6/uL (4.7-6.1); WHITE BLOOD CELLS 6.1 10/3/uL (4.5-10.5)
[2016-10-01 04:46] LABS: ALBUMIN 2.4 G/DL (3.5-5.0); BUN (BLOOD UREA NITROGEN) 30 MG/DL (6-23); CALCIUM, SERUM 8.4 MG/DL (8.5-10.4); CHLORIDE, SERUM 107 MMOL/L (96-112); CO2 (CARBON DIOXIDE) 19 MMOL/L (24-34); GFR AFRICAN AMERICAN 53 ML/MIN (>=60); GFR NON AFRICAN AMERICAN 46 ML/MIN (>=60); GLUCOSE, SERUM 90 MG/DL (60-99); PHOSPHORUS, SERUM 3.6 MG/DL (2.5-4.5); POTASSIUM, SERUM 3.4 MMOL/L (3.5-5.3); SODIUM, SERUM 139 MMOL/L (135-148)
[2016-10-01 04:54] LABS: INTERNATIONAL NORMAL RATI 1.1 UNITS (-); MANUAL DIFF NO %; PROTIME (NOT ORD) 13.8 SEC (12.0-14.5)
[2016-10-01] MEDS ORDERED: NORV5 PO (15:37)
[2016-10-05] MEDS ORDERED: ZYPREXA10 MG PO (10:55)
[2016-10-05] MEDS ORDERED: ZYPREXA ZYDI10 MG PO (10:55)
[2016-10-05] MEDS ORDERED: IBU-200200 MG PO (10:57)
== END 2016-10-01 17:50 | disposition home or self-care (01) | DRG 374 ==
LOC: MIC 00:33 → 2SO 09-18 15:57 → 4EA 09-29 15:51
PROVIDERS: Hospitalist; Internal Medicine; Internal Medicine Critical Care Medicine; Internal Medicine Gastroenterology; Internal Medicine Nephrology; Internal Medicine Pulmonary Disease; Nurse Practitioner Family
PROC: 02HV33Z Insertion of Infusion Device into Superior Vena Cava, Percutaneous Approach (ICD-10-PCS; 2016-09-13)
PROC: 4A02X4A Measurement of Cardiac Electrical Activity, Guidance, External Approach (ICD-10-PCS; 2016-09-13)
PROC: 0DJD8ZZ Inspection of Lower Intestinal Tract, Via Natural or Artificial Opening Endoscopic (ICD-10-PCS; principal; 2016-09-17 07:00)
DX: C19 Malignant neoplasm of rectosigmoid junction (principal); G93.40 Encephalopathy, unspecified; N17.9 Acute kidney failure, unspecified; K56.69 Other intestinal obstruction; E87.2 Acidosis; N18.3 Chronic kidney disease, stage 3 (moderate); E87.1 Hypo-osmolality and hyponatremia; F31.9 Bipolar disorder, unspecified; F20.9 Schizophrenia, unspecified; Z79.899 Other long term (current) drug therapy; N40.0 Benign prostatic hyperplasia without lower urinary tract symptoms; I12.9 Hypertensive chronic kidney disease with stage 1 through stage 4 chronic kidney disease, or unspecified chronic kidney disease; E87.6 Hypokalemia
CPT/HCPCS: 36415; 36569; 71250; 72195; 74000; 74020; 74250; 77280; 77290; 77295; 77300; 77334; 77336; 77412; 80048; 80053; 80069; 80076; 81001; 82150; 82330; 82378; 82570; 82607; 82746; 83605; 83690; 83735; 83930; 83935; 84100; 84132; 84145; 84153; 84300; 84439; 84443; 84484; 85025; 85610; 85730; 86850; 86900; 86901; 87641; 88305; 93005; A9270-GY; C1751; C9113; J0610; J2405; J2550; J3480

== ENCOUNTER 2016-10-07 05:47 | Inpatient (IN) | payer MEDICARE, OTHER ==
--- NOTE | ~2016-10-07 | DS ---
Discharge Summary [facility] [address] [place]. [address] NAME: JODI BOSWELL : 53 STATUS : DIS IN PAT#: [id number] AGE: 60 ADM/REG DATE : 10/07/16 MR#: [id number] REPORT SERV DATE: 10/26/16 DICTATED BY: GRICEL ANGULO DATE: 10/26/16 REPORT STATUS : Draft TRANSCRIBED BY: MODL DATE: 10/26/16 ADMISSION DATE: 10/07/2016 DISCHARGE DATE: 10/11/2016 REASON FOR ADMISSION: Rectal cancer. HOSPITAL COURSE: The patient on the day of admission underwent open abdominoperineal resection. He did very well. Of course, he already had an ostomy at the time of the surgery, so there was no difference in caring for his ostomy. He was discharged in stable condition, tolerating oral pain medications and adequate oral intake with normal laboratory results. His creatinine was normal at the time of discharge. MEDICATIONS: See medication reconciliation record. PLAN: The patient will follow up with Dr. Angulo's clinic in about one week's time for staple removal. The plan of discharge and additional discharge information were given to the patient's family members. He is going to go to a longterm facility. DEMAR/BRONSON Gricel Angulo MD / [id number] CC: MD Milton Saldana M.D.
--- NOTE | ~2016-10-07 | OP ---
Record Of Operation [facility] [address] [place]. [address] NAME: JODI BOSWELL : 53 STATUS : ADM IN PAT#: [id number] AGE: 60 ADM/REG DATE : 10/07/16 MR#: [id number] REPORT SERV DATE: 10/07/16 DICTATED BY: GRICEL ANGULO DATE: 10/07/16 REPORT STATUS : Draft TRANSCRIBED BY: MODL DATE: 10/07/16 DATE OF PROCEDURE: 10/07/2016 PREOPERATIVE DIAGNOSIS: Locally advanced rectal cancer. POSTOPERATIVE DIAGNOSIS: Locally advanced rectal cancer. SURGEON: Gricel Angulo MD SPECIMEN PREPARATION ASSISTANT: Ever Villareal MD COMPLICATIONS: None. SPECIMEN: Sigmoid colon, rectum, and anus. IV FLUIDS: 2.2 L of crystalloid and 250 mL of albumin. ESTIMATED BLOOD LOSS: 75 mL. URINE OUTPUT: 350 mL. FINDINGS: There was no evidence of metastatic disease in the abdomen. There was no evidence of any prior small bowel obstruction and frankly not that many adhesions to the small bowel. The end ileostomy was left in situ and not addressed or not modified anyway. The patient did have palpable disease on the right lateral pelvis threatening circumferential resection margin consistent with his preoperative MRI. In this area, the tumor was somewhat near the internal iliac vein, which was skeletonized. Additional lymphatic tissue was pulled out of the obturator foramen as well on the right. In this manner, we did an extra mesorectal dissection in this area. The final specimen had a negative, but very close margin at 0.4 mm on a frozen section. Of course, final pathology is pending. Clips were left in this area. The guide future radiation therapy should be required. No additional margins were taken because I was not clear on whether to take additional margins. PROCEDURE IN DETAIL: Preoperatively, the patient was definitively identified in the holding area, it was confirmed that a signed consent was on the chart. The patient was then transferred to the operating room and placed supine on the operating room table. After appropriate surgical pause, general endotracheal anesthesia, preop antibiotics, subcutaneous heparin were all administered by Anesthesia Team. ERAS principles were followed during this case including a tap block. After placement of a Bardales catheter, the patient was carefully prepped and draped in normal sterile fashion in the low lithotomy position. A 10/10 drape was used to isolate his ostomy appliance. A low midline incision was performed sharply and a Bookwalter retraction system was installed for adequate visualization. The abdomen was explored and findings were mentioned above. The patient had most of the sigmoid colon left. Both ureters were identified. The inferior mesenteric artery pedicle was isolated and then clamped twice proximally, once distally, and divided. It was ligated twice proximally and once distally with 0 Vicryl suture. Both hypogastric nerves were identified and swept Record Of Operation [address] [address] NAME: JODI BOSWELL : 53 STATUS : ADM IN PAT#: [id number] AGE: 60 ADM/REG DATE : 10/07/16 MR#: [id number] REPORT SERV DATE: 10/07/16 DICTATED BY: GRICEL ANGULO DATE: 10/07/16 REPORT STATUS : Draft TRANSCRIBED BY: BRONSON DATE: 10/07/16 posteriorly. The areolar plane directly anterior to the curve of the sacrum was identified, and we could clearly visualize his middle sacral vessels. Staying immediately anterior to these, we dissected down to the pelvic floor posteriorly and then to avoid coning in at the level of the tip of the coccyx immediately started dissecting through the levators. The lateral dissections were carried out on the left side in standard fashion. We did our best to spare some of the parasympathetic nerves; however, due to the circumferential nature of the tumor, we identified the seminal vesicles and dissected directly posterior to these keeping Denonvilliers fascia with the specimen. On the right side as mentioned above on the area of the palpable tumor, I carried the dissection outside the mesorectal plane and performed a limited lateral pelvic dissection along the internal iliac vein. Several clips were used in this area to tri the area and also to control several branches of the iliac vein. Carrying the dissection deeper, the lymphatic tissue with the obturator foramina was dissected out and kept with the specimen as well. Below this level of the circumferential resection margins, it did not seem to be so threatened and it was not based on preoperative MRI and therefore, the dissection continued back in the mesorectal plane down through levators. We began the perineal dissection. After re-prepping with Betadine over the perineal area, two curvilinear incisions were marked from the tip of the coccyx posteriorly to the perineal body anteriorly. Sharp dissection was used to carry the dissection into the ischiorectal fat pad. Two Gelpi retractors were used for adequate visualization. Posteriorly, dissection on the tip of the coccyx and immediately anterior to it connected to our abdominal incision. A finger was then placed in the incision and used to pull the levator musculature inferiorly, and Bovie electrocautery was used to come through the levators and frankly most levators were taken with the specimen especially on the right side due to the concern for margin status and also due to the fact that he had a very narrow male pelvis. After carrying the dissection up to the anterior aspect of the anus, the tip of the sigmoid colon was passed posteriorly out through the perineal incision. The patient had an extremely large bladder, and I had to change gloves several times to palpate above to make sure that the anterior dissection was proceeding in the correct plane in the groove between the bladder and prostate and the rectum. The transversus perinei muscle was identified and kept anterior. I was never able to palpate the Bardales catheter in the urethra, but was confident we were in the correct plane which was confirmed when we finally finished the dissection. 4 or 5 L of warm normal saline were poured into the abdominal incision and extracted out through the perineal incision. Hemostasis was verified. Two 19-Afghan Ortega drains were placed through separate stab incisions in the left lateral abdomen and brought down into the pelvis. The inferior one was placed deeply in the pelvis at the level of levator muscles. The areolar plane beyond the pubis was developed to allow the extremely large bladder to rotate posteriorly which nicely filled the pelvis. The other 19-Afghan Ortega was placed on top of this. These were both secured with 2-0 nylon suture. After confirmation, the lap count was correct and a final confirmation of hemostasis in the abdomen, the residual small amount of greater omentum was placed underneath the midline incision was closed from both ends with #1 looped PDS suture in running fashion and tied centrally. The wound was rinsed out and closed loosely with kar. The perineal incision was closed in as many layers as possible. We were not able to approximate the pelvic floor musculature. The fascia distal to this and the fat was closed Record Of formerly [facility] [address] [place]. [address] NAME: JODI BOSWELL DOB: [birth year] STATUS : ADM IN PAT#: [id number] AGE: 60 ADM/REG DATE : 10/07/16 MR#: [id number] REPORT SERV DATE: 10/07/16 DICTATED BY: GRICEL ANGULO DATE: 10/07/16 REPORT STATUS : Draft TRANSCRIBED BY: BRONSON DATE: 10/07/16 in 4 to 5 layers with 2-0 Vicryl suture and 3-0 Vicryl suture. The skin was closed in a simple interrupted fashion. Dry dressing was placed followed by mesh panties. Dry dressings were placed to the abdominal incision as well. At the time of dictation, the patient remains intubated. We anticipate extubation and transfer to postanesthesia care unit in stable condition. ISMAELN/BRONSON Gricel Angulo MD / [id number] CC: MD Milton Saldana M.D.
--- NOTE | ~2016-10-07 | HP ---
History And Physical [address] [place]. [address] NAME: JODI BOSWELL : 53 STATUS : DIS IN PAT#: [id number] AGE: 60 ADM/REG DATE : 10/07/16 MR#: [id number] REPORT SERV DATE: 10/26/16 DICTATED BY: GRICEL ANGULO DATE: 10/26/16 REPORT STATUS : Draft TRANSCRIBED BY: MODL DATE: 10/26/16 DATE OF ADMISSION: 10/07/2016 REASON FOR ADMISSION: Rectal cancer. HISTORY OF PRESENT ILLNESS: This is an unfortunate 60-year-old mentally delayed male, who was found to have locally advanced rectal cancer. Distant metastatic workup was negative. However, he did have enlarged lymph nodes and a bulky tumor, which threatened his circumferential resection margin. Five days of neoadjuvant radiation were performed and he now presents for resection. PAST MEDICAL HISTORY: Significant for chronic renal insufficiency, mental delay, history of ileostomy. PAST SURGICAL HISTORY: Many years ago, the patient had exploratory laparotomy for colonic trauma when he fell from a tree and this resulted in his mental delay and the end ileostomy. MEDICATIONS: Reviewed and reconciled. PHYSICAL EXAMINATION: GENERAL: Alert and oriented x3, in no acute distress. HEENT: Normocephalic, atraumatic. NECK: Supple. CHEST: Clear to auscultation bilaterally. HEART: Regular rate and rhythm. No murmurs, rubs, or gallops are auscultated. ABDOMEN: Soft and nontender, with an ileostomy in the right lateral abdomen. RECTAL: Digital rectal exam reveals a bulky tumor, very distal. LABORATORY DATA: None. IMAGING: As above. ASSESSMENT AND PLAN: The patient will go to the operating room for open abdominoperineal resection. I have discussed this at length with his brother and two sisters. They understand the risks of bleeding, infection, damage to intraabdominal structures, damage to nerves causing worsening urinary function, damage to the ureter, hernia formation, need for further procedures, risks of perineal wound complications, and the risk of anesthetic agents. They verbalized their willingness to proceed. DEMAR/BRONSON Gricel Angulo MD History And Physical [address] [facility] [address] NAME: JODI BOSWELL : 53 STATUS : DIS IN PAT#: [id number] AGE: 60 ADM/REG DATE : 10/07/16 MR#: [id number] REPORT SERV DATE: 10/26/16 DICTATED BY: GRICEL ANGULO DATE: 10/26/16 REPORT STATUS : Draft TRANSCRIBED BY: MODL DATE: 10/26/16 / [id number] CC: MD Milton Saldana M.D.
[~2016-10-07 05:47] MED LIST: ADVIL PO; COG2 PO; IBU-200200 MG PO; MAXIMUM D3 PO; NORV5 PO; ZYPREXA ZYDI10 MG PO; ZYPREXA10 MG PO
[2016-10-07 13:33] LABS: HEMOGLOBIN 10.2 g/dL (13.6-17.8)
[2016-10-07 13:34] LABS: HEMATOCRIT 29.3 % (40.0-51.0)
[2016-10-08 04:43] LABS: BASOPHILS 0.1 %; BASOPHILS ABSOLUTE 0.01 10/3/uL (0.0-0.16); EOSINOPHILS 0 %; HEMATOCRIT 28.4 % (40.0-51.0); HEMOGLOBIN 10.2 g/dL (13.6-17.8); IMMATURE GRANULOCYTES 0.3 %; IMMATURE GRANULOCYTES ABSOLUTE 0.03 10/3/uL (0.0-0.11); LYMPHOCYTES 3.7 %; LYMPHOCYTES ABSOLUTE 0.33 10/3/uL (0.67-4.30); MEAN CORPUSCULAR HEMOGLOB 30.4 pg (26.0-34.0); MEAN CORPUSCULAR VOLUME 84.8 fL (80-100); MEAN PLATELET VOLUME 8.7 fL (9.2-13.0); MONOCYTES ABSOLUTE 1.35 10/3/uL (0.21-1.20); NEUTROPHILS 80.9 %; NEUTROPHILS ABSOLUTE 7.31 10/3/uL (2.02-8.40); PLATELET COUNT 246 10/3/uL (150-400); RBC DISTRIBUTION WIDTH 14.6 % (12.0-16.0); RED CELL COUNT 3.35 10/6/uL (4.7-6.1)
[2016-10-08 04:46] LABS: MANUAL DIFF NO %; MEAN CORPUS HGB CONC 35.9 g/dL (32.0-36.0)
[2016-10-08 04:52] LABS: CHLORIDE, SERUM 104 MMOL/L (96-112); CO2 (CARBON DIOXIDE) 17 MMOL/L (24-34); SODIUM, SERUM 137 MMOL/L (135-148)
[2016-10-08 05:03] LABS: BUN (BLOOD UREA NITROGEN) 41 MG/DL (6-23); CREATININE 2.78 MG/DL (0.70-1.30); GFR AFRICAN AMERICAN 27 ML/MIN (>=60); GFR NON AFRICAN AMERICAN 23 ML/MIN (>=60); GLUCOSE, SERUM 118 MG/DL (60-99); POTASSIUM, SERUM 2.8 MMOL/L (3.5-5.3)
[2016-10-09 06:50] LABS: CALCIUM, SERUM 8.1 MG/DL (8.5-10.4); CHLORIDE, SERUM 108 MMOL/L (96-112); CO2 (CARBON DIOXIDE) 17 MMOL/L (24-34); SODIUM, SERUM 137 MMOL/L (135-148)
[2016-10-09 06:51] LABS: BUN (BLOOD UREA NITROGEN) 32 MG/DL (6-23); CREATININE 2.02 MG/DL (0.70-1.30); GFR AFRICAN AMERICAN 40 ML/MIN (>=60); GFR NON AFRICAN AMERICAN 35 ML/MIN (>=60); GLUCOSE, SERUM 92 MG/DL (60-99); POTASSIUM, SERUM 4.2 MMOL/L (3.5-5.3)
[2016-10-10 07:09] LABS: BUN (BLOOD UREA NITROGEN) 31 MG/DL (6-23); CALCIUM, SERUM 8.2 MG/DL (8.5-10.4); CHLORIDE, SERUM 104 MMOL/L (96-112); CO2 (CARBON DIOXIDE) 20 MMOL/L (24-34); CREATININE 1.82 MG/DL (0.70-1.30); GFR AFRICAN AMERICAN 45 ML/MIN (>=60); GFR NON AFRICAN AMERICAN 39 ML/MIN (>=60); GLUCOSE, SERUM 93 MG/DL (60-99); POTASSIUM, SERUM 4.3 MMOL/L (3.5-5.3); SODIUM, SERUM 136 MMOL/L (135-148)
== END 2016-10-11 18:26 | DRG 330 ==
LOC: SDC/OF 05:47 → PACU 13:20 → IMCU 16:18 → 5SO 10-08 13:03
PROVIDERS: Surgery; Transplant Surgery
PROC: 0DBN0ZZ Excision of Sigmoid Colon, Open Approach (ICD-10-PCS; 2016-10-07)
PROC: 0DBQ0ZZ Excision of Anus, Open Approach (ICD-10-PCS; 2016-10-07)
PROC: 3E0T3CZ (ICD-10-PCS; 2016-10-07)
PROC: 0DTP0ZZ Resection of Rectum, Open Approach (ICD-10-PCS; principal; 2016-10-07 07:15)
DX: C20 Malignant neoplasm of rectum (principal); C77.2 Secondary and unspecified malignant neoplasm of intra-abdominal lymph nodes; N18.3 Chronic kidney disease, stage 3 (moderate); F20.9 Schizophrenia, unspecified; Z91.040 Latex allergy status; Z79.899 Other long term (current) drug therapy; Z93.2 Ileostomy status; I12.9 Hypertensive chronic kidney disease with stage 1 through stage 4 chronic kidney disease, or unspecified chronic kidney disease; I45.10 Unspecified right bundle-branch block
CPT/HCPCS: 36415; 71010; 80048; 85014; 85018; 85025; 86850; 86900; 86901; 86920; 88309; 88313; 88331; 88341; 88342; 93005; 97162-GP; A9270-GY; G8978-CK-GP; G8979-CJ-GP; J0690; J2250; J2270; J2370; J2405; J2710; J2795; J3010; P9045

== ENCOUNTER 2016-10-23 15:17 | Inpatient (IN) | payer MEDICARE, OTHER ==
--- NOTE | ~2016-10-23 | HP ---
History And Physical [address] [facility] [place]. [address] NAME: JODI BOSWELL : 53 STATUS : ADM IN PAT#: [id number] AGE: 60 ADM/REG DATE : 10/23/16 MR#: [id number] REPORT SERV DATE: 10/23/16 DICTATED BY: NAYE FLEMING DATE: 10/23/16 REPORT STATUS : Draft TRANSCRIBED BY: MODL DATE: 10/23/16 DATE OF ADMISSION: 10/23/2016 CHIEF COMPLAINT: A 60-year-old male with recent rectal cancer surgery, now presenting from [facility] with low blood pressure and evidence of acute renal failure. HISTORY OF PRESENT ILLNESS: The patient's history was obtained through careful interview with patient and brother, Ganesh, coupled with review of [facility] medical records. The patient was hospitalized in August 2016 with abdominal pain issues and found to have a rectal cancer. He was unable to undergo rectal cancer resection on 10/07/[address] Angulo and has been seen by an oncologist, Dr. Vicki Kramer, as well. He was discharged to [facility] about two weeks ago for rehabilitation. He has been progressing fairly well with physical therapy with hopes to return to his chronic intermediate. It has been noticed that the patient has orthostatic symptoms and lightheadedness, sometimes blood pressures have been reading in the 80s and 90s by report and his pulse has often been in the 100s as well. The patient admits to a poor appetite and apparently there is a report of poor oral intake. The patient has also had intermittent nausea and vomiting as well. He has a chronic ostomy (not related to his recent rectal cancer surgery). Then, he has had a report of normal ostomy output without any specific diarrhea or high ostomy output condition. Although, the patient denies hallucinations at this time, his brother states that he has been having "an inner dialogue," talking to himself frequently while at [facility], but there has been no depression. No anxiety. No paranoia and the patient have been very cooperative. The patient denies any rectal pain. He states that he has pain from a Bardales catheter that was placed 24 hours prior to this admission, but is unable to really give a precise quality or severity of that pain. No shortness of breath. No cough. No chest pain. REVIEW OF SYSTEMS: Otherwise, a 14-point review of systems was obtained and was negative. PAST MEDICAL HISTORY: 1. Rectal cancer, status post resection in September 2016. 2. Chronic kidney disease stage 3 with baseline creatinine of 1.6 to 1.8. 3. Schizoaffective disorder with bipolar disorder. History And Physical [address] [address] NAME: JODI BOSWELL : 53 STATUS : ADM IN LOCATED WITHIN [facility]#: [id number] AGE: 60 ADM/REG DATE : 10/23/16 MR#: [id number] REPORT SERV DATE: 10/23/16 DICTATED BY: NAYE FLEMING DATE: 10/23/16 REPORT STATUS : Draft TRANSCRIBED BY: BRONSON DATE: 10/23/16 4. Anemia. 5. Dementia. 6. Hypertension. 7. Possible previous DVT (?). 8. Right bundle branch block. 9. Malignant hyperthermia, uncertain if this was from anesthesia or other cause (?). PAST SURGICAL HISTORY: 1. Perforated viscus from a fall and small bowel obstruction years ago with chronic colostomy now. 2. Testicular torsion surgery. 3. Rectal cancer resection, September 2016. ALLERGIES: LATEX. SOCIAL HISTORY: Quit smoking. No alcohol abuse. Resides at a intermediate on [address] [place] [address], but has been at [facility]. Has a sister, who is a inspector watch assembly in [place]. A brother, Ganesh, who is from out of town helping with the patient's care and a sister Rhina, who is the power of criminal attorney and lives locally. FAMILY HISTORY: Mother with end-stage renal disease and diabetes. Father with lung cancer. No other significant psychiatric disorders in the family. CURRENT MEDICATIONS: Include Cogentin 2 mg p.o. t.i.d., vitamin D, ibuprofen, Zyprexa 30 mg p.o. q.h.s., sodium chloride tablets, Flomax 0.4 mg p.o. daily. PHYSICAL EXAMINATION: VITAL SIGNS: Temperature 97.8, pulse 108, blood pressure 104/58, respiratory rate 16, and O2 saturation 100% on room air. GENERAL: A pleasant, cooperative male, in no significant distress at this time. HEENT: Pupils equal, round, and reactive to light. No conjunctival pallor. No scleral icterus. Nares are patent. Oropharynx is clear of obstruction. Dry mucous membranes. NECK: Trachea midline. No thyromegaly. LYMPH: No cervical lymphadenopathy. No supraclavicular lymphadenopathy. RESPIRATORY: Clear to auscultation at bases. No wheezes. No rales. No rhonchi. Normal respiratory effort. CARDIOVASCULAR: Tachycardic. Regular rhythm. No murmurs, rubs, or gallops. No extremity edema is appreciated. ABDOMEN: Nontender by my exam, stable appearing ostomy, stable appearing anterior abdominal scars. The patient has no rebound, no guarding, and no hepatosplenomegaly. DERMATOLOGIC: Warm and dry extremities. No pallor, no cyanosis. PSYCHIATRIC: Flat affect, but the patient's claims to be in a good mood. He denies any hallucinations. Does not act paranoid. No depression or anxiety. Nonagitated. He is alert, but poorly oriented to details of time, location, and his recent history. LABORATORY DATA: White blood count 11, hemoglobin 11, hematocrit 30, platelets 637. Sodium 127, potassium 4.4, chloride 89, bicarb 21, BUN 108, creatinine 5.65 from baseline History And Physical [address] [address] NAME: JODI BOSWELL : 53 STATUS : ADM IN LOCATED WITHIN [facility]#: [id number] AGE: 60 ADM/REG DATE : 10/23/16 MR#: [id number] REPORT SERV DATE: 10/23/16 DICTATED BY: NAYE FLEMING DATE: 10/23/16 REPORT STATUS : Draft TRANSCRIBED BY: MODL DATE: 10/23/16 creatinine of 1.8, glucose 97. Urinalysis shows large leukocyte esterase, 103 white blood cells, 4 hyaline casts. STUDIES: 1. Chest x-ray by my own evaluation shows atelectasis changes only. 2. EKG by my own evaluation shows sinus tachycardia, right bundle branch block, left axis deviation. 3. CT scan of the abdomen shows stable postoperative changes, mild left hydronephrosis. ASSESSMENT AND PLAN: 1. Acute renal failure. Seems to be a combination of dehydration (vomiting and poor oral intake), coupled with likely acute tubular necrosis because of persistent low blood pressures. We will place on IV albumin, IV fluids, provide supportive care. Place a Bardales catheter. Obtain Nephrology consult. 2. Recent rectal cancer, status post resection, 10/07/2016. Consult Dr. Silvano Kramer, oncologist, per family request. 3. Chronic colostomy for many years after perforated viscous, seems stable now. 4. Schizoaffective disorder. Well controlled on Zyprexa. 5. Urinary tract infection. Bardales catheter since yesterday. Check urine culture. Place on IV Rocephin. KPL/MODL Naye Fleming M.D. / [id number] CC: Michaelle Parada M.D. Brooke R. Daniel, M.D. Eric C. Nelson, MD
--- NOTE | ~2016-10-23 | DS ---
Discharge Summary [facility] [address] [place]. [address] NAME: JODI BOSWELL : 53 STATUS : ADM IN [facility]#: [id number] AGE: 60 ADM/REG DATE : 10/23/16 MR#: [id number] REPORT SERV DATE: 11/02/16 DICTATED BY: AMANDA CHRISTIE II DATE: 11/01/16 REPORT STATUS : Draft TRANSCRIBED BY: MODL DATE: 11/01/16 ADMISSION DATE: 10/23/2016 DISCHARGE DATE: 11/02/2016 DISCHARGE DIAGNOSES: 1. Urinary tract infection. 2. Acute kidney injury on chronic kidney disease stage 3 secondary to dehydration and acute tubular necrosis from hypotension. 3. Non-anion gap metabolic acidosis. 4. Schizoaffective disorder. 5. Generalized weakness and debility. 6. Urinary retention. 7. Stage IIIB rectal adenocarcinoma, status post recent surgery, receiving wound care to abdomen and perineum. 8. Chronic colostomy. CONSULTS: Dr. Locke with Nephrology and Dr. Angulo with Surgery. BRIEF HISTORY OF PRESENT ILLNESS: The patient is a 60-year-old male with the above history, who presented to [facility] due to hypotension, acute renal failure, and evidence for UTI. For detailed history and physical examination, please see Dr. Lalito Ayala's note from 10/23/2016. HOSPITAL COURSE: On admission, the patient had a UA with large leukocyte esterase and 103 white cells as well as a creatinine of 5.65. He was hypotensive and given aggressive IV fluids. Initially, started on Rocephin and urine culture came back positive for Morganella morganii and MRSA. The patient had only been on Rocephin, but was switched to Levaquin on 10/25/2016 when Morganella showed up. The patient's MRSA was not ever covered; however, repeat urinalysis was completely normal. So, Levaquin was continued, presuming the MRSA could have been a contaminant and was responding clinically. The patient has finished a 10- day course of Levaquin. His blood pressure is improved, though was started on midodrine, sodium bicarb, and sodium chloride tablets given his propensity to dehydration and metabolic acidosis. His creatinine subsequently trended down, but back up slightly likely due to dehydration. The patient's family has noted, he does not drink enough, and the patient has continually been encouraged to drink as much as he can. He also had significant output from his ileostomy. So, Imodium and Lomotil were started to slow down his ileostomy output. He does produce a large amount of urine daily, but without IV fluids his creatinine continues to trend down. Regarding his Bardales catheter, it was reported that he had this from [facility], though there was an order to place one here. Regardless this was attempted to be removed and the patient had recurrent urinary retention, so it was placed again. Bladder draining was attempted, however unsuccessfully. He seems to have some degree of neurogenic bladder possibly related to his benztropine. He may benefit from keeping the Bardales in while his perineal wounds heal as he does have incontinence otherwise. At this point, this patient is stable for discharge and has been however pending rehab approval, which was delayed given his history of schizoaffective disorder. The patient is approved for [facility] and plan is to discharge the patient to [facility] on 11/02/2016. Discharge Summary [address] [address] NAME: ANDREIAJODI : 53 STATUS : ADM IN PAT#: [id number] AGE: 60 ADM/REG DATE : 10/23/16 MR#: [id number] REPORT SERV DATE: 11/02/16 DICTATED BY: AMANDA CHRISTIE II DATE: 11/01/16 REPORT STATUS : Draft TRANSCRIBED BY: BRONSON DATE: 11/01/16 DISCHARGE MEDICATIONS: 1. Cogentin 2 mg p.o. t.i.d. 2. Max-D3 one capsule p.o. weekly. 3. Lomotil 5 mg p.o. t.i.d. 4. Imodium 4 mg p.o. t.i.d. 5. Zyprexa 30 mg p.o. at bedtime. 6. Sodium bicarb 1300 mg p.o. daily. 7. Sodium chloride 1 g p.o. b.i.d. 8. Flomax 0.4 mg p.o. at bedtime. 9. Midodrine 5 mg p.o. t.i.d. DISCHARGE INSTRUCTIONS: The patient will be discharged to [facility] for further rehabilitation. He will follow up with Dr. Vicki Kramer in two weeks. Otherwise, he will follow up with Dr. Angulo in clinic as scheduled. LILIA/BRONSON anda Christie II, MD / [id number] CC: Michaelle Huston Jr., MD
--- NOTE | ~2016-10-23 | CN ---
Consultation Report [facility] [address] [place]. [address] NAME: JODI BOSWELL : 53 STATUS : ADM IN PAT#: [id number] AGE: 60 ADM/REG DATE : 10/23/16 MR#: [id number] REPORT SERV DATE: 10/24/16 DICTATED BY: DOC LOCKE V. DATE: 10/24/16 REPORT STATUS : Draft TRANSCRIBED BY: MODL DATE: 10/24/16 CONSULTATION DATE OF CONSULTATION: REASON FOR CONSULTATION: Acute kidney injury on chronic kidney disease. HISTORY OF PRESENT ILLNESS: This is a fairly pleasant 60-year-old male patient, seen by our service in previous hospitalizations for primarily the same complaint. He was seen by our service back in late 2015 with admission for acute kidney injury with AGMA, hyponatremia, and volume contraction. Baseline creatinine is felt to be around 1.6 to 1.8, and he presents to [facility] with complaint of lethargy and fatigue with noted hypotension on blood pressure readings at [facility], where he has been recently. He is known to have rectal cancer and has required a previous diversion ileostomy. He was slated to undergo a resection in 09/2016 after findings of rectal cancer in 08/2016, but unfortunately, this was scrubbed. Unclear at this point whether this surgical intervention was undertaken. He continues to be followed by Dr. Vicki Kramer and was recently placed at [facility] with primary residence being at a halfway. Optimal outcome desired from that inpatient placement at [facility] was to be returned to his halfway as per previous. He had been complaining of symptoms of lightheadedness and orthostasis and was noted to have blood pressure readings in the 80s to 90s and presented here and was noted to have an elevated creatinine and placed inpatient for further workup and supportive care. He is accompanied by his brother during evaluation. He is pleasant, awake and alert, in no acute distress. Denies current chest pain. No nausea, vomiting, or diarrhea. PAST MEDICAL HISTORY: Positive for rectal cancer, status post resection in 09/2016; chronic kidney disease stage 3, baseline creatinine 1.6 to 1.8; schizoaffective disorder with bipolar disorder; anemia; dementia; hypertension; possible previous DVT; right bundle-branch block; malignant hyperthermia, unclear causative mechanism according to previous dictations. PAST SURGICAL HISTORY: Includes perforated viscus from a fall and small-bowel obstruction, now with chronic colostomy as above; testicular torsion surgery; rectal cancer resection in 09/2016. ALLERGIES: HE LISTS ALLERGIES TO LATEX. SOCIAL HISTORY: No ETOH. No illicit drugs. Previous history of tobacco abuse remotely. Currently lives in a halfway setting, but has been recently in [facility] in effort for rehabilitation. ACTIVE MEDICATIONS ON ENTRY: Cogentin 2 mg p.o. t.i.d.; cholecalciferol 10,000 units one cap p.o. weekly; ibuprofen 200 mg p.o. q.6 hours p.r.n.; Zyprexa 30 mg p.o. q.h.s.; sodium chloride 1 g tablet p.o. b.i.d.; Flomax 0.4 p.o. q.h.s. Consultation Report [address] [address] NAME: JODI BOSWELL : 53 STATUS : ADM IN [facility]#: [id number] AGE: 60 ADM/REG DATE : 10/23/16 MR#: [id number] REPORT SERV DATE: 10/24/16 DICTATED BY: DOC LOCKE V. DATE: 10/24/16 REPORT STATUS : Draft TRANSCRIBED BY: BRONSON DATE: 10/24/16 REVIEW OF SYSTEMS: Completed with the assistance of previous available data as well as the patient's brother, who is at bedside. PHYSICAL EXAMINATION: VITAL SIGNS: Blood pressure at 99/60, respiratory rate at 16, temperature at 98.1, heart rate at 104 beats per minute and regular. GENERAL: He is awake, alert and pleasant, in no acute distress during evaluation. HEENT: Normocephalic and atraumatic. Normal ocular movements. No scleral icterus or conjunctival pallor is appreciated. NECK: Supple without thyromegaly. No JVD. No mass. CHEST: Shows positive S1 and S2. No rubs. No gallops. LUNGS: Clear to auscultation throughout with normal expansion and effort bilaterally. GI: Shows positive bowel sounds in all four quadrants without appreciable mass. No tenderness. : Deferred. He does have a Bardales catheter to bedside drainage with modest amount of clear yellow urine. EXTREMITIES: Show positive pulses. No clubbing, cyanosis, or edema is noted. SKIN: Warm, dry, and intact to visualized surfaces. No rash, lesions, or ecchymosis. NEUROLOGIC: He is of appropriate mood and affect and shows to be grossly nonfocal. LABORATORY DATA: Pertinent laboratories and imaging to this evaluation: Urinalysis and urine culture show 100,000 gram-negative bacilli to be identified. Comprehensive metabolic panel: Sodium 130, potassium 3.6, chloride 97, CO2 of 18, BUN 91, creatinine 4.41, reflected GFR at 13 mL/minute, glucose of 100, calcium 7.4, magnesium 1.6, total protein 5.8, albumin 2.7, alkaline phosphatase 1.54, ALT and AST at 30 and 17 respectively. TSH at 0.339. CBC: White blood cell count of 7.4, RBC 2.85, hemoglobin 8.6, hematocrit of 24.3, platelets of 537. IMPRESSION AND PLAN: This is a chronic kidney disease stage 3 patient, now admitted with noted hypotension at facility during inpatient rehabilitation and noted prolonged hypotension on available readings here at [facility]. He is not currently on antihypertensive medications, and although he does have ibuprofen available to him, infrequently uses nonsteroidal medications. He has reasonable urinary output in his Bardales, showing 1.55 L of urinary output during his previous shift and has not been exposed to contrast medium or other nephrotoxic agents as far as data would suggest at this point. Likely that this is an ATN injury, primarily related to his low blood pressures and hypoperfusion plus or minus some level of volume contraction given his ostomy and questionable p.o. intake. He does not, however, report aggressive loss of stool or other bodily fluids recently. We will check urine studies, urine sodium, urine creatinine and check renal ultrasound. Avoid the ibuprofen as well as FAM inhibitors and ARBs with contrast medium. Treat his magnesium, 1 amp of IV push sodium bicarb, and place him on p.o. bicarbonate. Add midodrine dosing of 5 mg p.o. t.i.d. to augment his blood pressure in hopes of increasing his renal perfusion. Defer any antibiotics for possible UTI to primary team. Hopeful of renal recovery. Should his renal function continue to dissipate, he Consultation Report [address] [place] [address] NAME: BOSWELLJODI CINDY : 53 STATUS : ADM IN PAT#: [id number] AGE: 60 ADM/REG DATE : 10/23/16 MR#: [id number] REPORT SERV DATE: 10/24/16 DICTATED BY: DOC LOCKE V. DATE: 10/24/16 REPORT STATUS : Draft TRANSCRIBED BY: BRONSON DATE: 10/24/16 would, likely considering his multiple comorbidities and current mental status, be a marginal hemodialysis candidate. Data and plan of care are discussed with brother at bedside. The patient's sister is a practicing investigative research specialist and will be involved in his care as well. Further modification of treatment plan may be made based on clinical presentation of the patient, laboratory results, and further consultation with Renal attending. We appreciate consultation and glad to follow with you. DICTATED BY: Cole Lawson NP JR/BRONSON Doc Locke M.D. / [id number] CC: Michaelle Huston Jr., M.D.
[2016-10-23 16:44] LABS: ASCORBIC ACID (UR NOT ORDER) NEG (NEG); BILIRUBIN, URINE NEGATIVE (NEG); ER URINALYSIS TAT 0 Hrs 11 Mins; KETONE, URINE NEGATIVE (NEG); LEUKOCYTE ESTERASE(NOT OR LARGE (NEG); NITRITE (URINE) NEG (NEG); WBC (NOT ORDERED) (RFLEX) 103 (0-5)
[2016-10-23 17:53] LABS: BASOPHILS 0.1 %; BASOPHILS ABSOLUTE 0.01 10/3/uL (0.0-0.16); EOSINOPHILS 0.3 %; EOSINOPHILS ABSOLUTE 0.03 10/3/uL (0.0-0.53); ER CBC TAT 0 Hrs 09 Mins; HEMATOCRIT 30.5 % (40.0-51.0); HEMOGLOBIN 10.6 g/dL (13.6-17.8); IMMATURE GRANULOCYTES 3.6 %; LYMPHOCYTES 7.9 %; LYMPHOCYTES ABSOLUTE 0.87 10/3/uL (0.67-4.30); MEAN CORPUS HGB CONC 34.8 g/dL (32.0-36.0); MEAN CORPUSCULAR HEMOGLOB 29.8 pg (26.0-34.0); MEAN CORPUSCULAR VOLUME 85.7 fL (80-100); MONOCYTES 6.2 %; MONOCYTES ABSOLUTE 0.68 10/3/uL (0.21-1.20); NEUTROPHILS 81.9 %; NEUTROPHILS ABSOLUTE 9.03 10/3/uL (2.02-8.40); RBC DISTRIBUTION WIDTH 15.3 % (12.0-16.0); RED CELL COUNT 3.56 10/6/uL (4.7-6.1)
[2016-10-23 17:54] LABS: MANUAL DIFF NO %; PLATELET COUNT 637 10/3/uL (150-400)
[2016-10-23 17:59] LABS: INTERNATIONAL NORMAL RATI 1.1 UNITS (-); PARTIAL THROMBO TIME 31.3 SEC (22.5-37.2); PROTIME (NOT ORD) 14.2 SEC (12.0-14.5)
[2016-10-23 18:07] LABS: BUN (BLOOD UREA NITROGEN) 108 MG/DL (6-23); CALCIUM, SERUM 8.1 MG/DL (8.5-10.4); CHEST PAIN PROFILE TAT 0 Hrs 23 Mins; CHLORIDE, SERUM 89 MMOL/L (96-112); CO2 (CARBON DIOXIDE) 21 MMOL/L (24-34); CREATININE 5.65 MG/DL (0.70-1.30); GFR AFRICAN AMERICAN 12 ML/MIN (>=60); GFR NON AFRICAN AMERICAN 10 ML/MIN (>=60); GLUCOSE, SERUM 97 MG/DL (60-99); POTASSIUM, SERUM 4.4 MMOL/L (3.5-5.3); SODIUM, SERUM 127 MMOL/L (135-148); TROPONIN I <0.02 NG/ML (<0.05)
[2016-10-23] MEDS ORDERED: FLOMAX4 PO (18:50)
[2016-10-23] MEDS ORDERED: SODCLTAB PO (18:52)
[2016-10-24 04:06] LABS: BASOPHILS 0.3 %; BASOPHILS ABSOLUTE 0.02 10/3/uL (0.0-0.16); EOSINOPHILS 0.5 %; EOSINOPHILS ABSOLUTE 0.04 10/3/uL (0.0-0.53); HEMATOCRIT 24.3 % (40.0-51.0); HEMOGLOBIN 8.6 g/dL (13.6-17.8); IMMATURE GRANULOCYTES 4.1 %; LYMPHOCYTES 10.5 %; LYMPHOCYTES ABSOLUTE 0.77 10/3/uL (0.67-4.30); MANUAL DIFF NO %; MEAN CORPUS HGB CONC 35.4 g/dL (32.0-36.0); MEAN CORPUSCULAR HEMOGLOB 30.2 pg (26.0-34.0); MEAN CORPUSCULAR VOLUME 85.3 fL (80-100); MEAN PLATELET VOLUME 8.2 fL (9.2-13.0); MONOCYTES 5.4 %; NEUTROPHILS 79.2 %; NEUTROPHILS ABSOLUTE 5.83 10/3/uL (2.02-8.40); PLATELET COUNT 537 10/3/uL (150-400); RBC DISTRIBUTION WIDTH 15.2 % (12.0-16.0); RED CELL COUNT 2.85 10/6/uL (4.7-6.1); WHITE BLOOD CELLS 7.4 10/3/uL (4.5-10.5)
[2016-10-24 04:11] LABS: INTERNATIONAL NORMAL RATI 1.2 UNITS (-); PARTIAL THROMBO TIME 34.6 SEC (22.5-37.2); PROTIME (NOT ORD) 15.2 SEC (12.0-14.5)
[2016-10-24 04:34] LABS: A/G RATIO 0.9 (0.7-1.9); ALBUMIN 2.7 G/DL (3.5-5.0); CALCIUM, SERUM 7.4 MG/DL (8.5-10.4); CHLORIDE, SERUM 97 MMOL/L (96-112); CO2 (CARBON DIOXIDE) 18 MMOL/L (24-34); GLOBULIN 3.1 G/DL (2.5-4.1); GLUCOSE, SERUM 100 MG/DL (60-99); POTASSIUM, SERUM 3.6 MMOL/L (3.5-5.3); SGOT(AST) 17 U/L (5-40); SGPT(ALT) 30 U/L (5-65); SODIUM, SERUM 130 MMOL/L (135-148); TOTAL BILIRUBIN 0.2 MG/DL (0-1.2); TOTAL PROTEIN 5.8 G/DL (6.0-8.5)
[2016-10-24 04:35] LABS: ALKALINE PHOSPHATASE 154 U/L (45-117); BUN (BLOOD UREA NITROGEN) 91 MG/DL (6-23); CREATININE 4.41 MG/DL (0.70-1.30); GFR AFRICAN AMERICAN 16 ML/MIN (>=60); GFR NON AFRICAN AMERICAN 13 ML/MIN (>=60); ULTRASENSITIVE TSH 0.339 MCIU/ML (0.358-3.740)
[2016-10-25 04:44] LABS: BASOPHILS 0.2 %; BASOPHILS ABSOLUTE 0.02 10/3/uL (0.0-0.16); EOSINOPHILS 1.1 %; HEMATOCRIT 26.1 % (40.0-51.0); HEMOGLOBIN 9.2 g/dL (13.6-17.8); IMMATURE GRANULOCYTES 2.6 %; IMMATURE GRANULOCYTES ABSOLUTE 0.23 10/3/uL (0.0-0.11); LYMPHOCYTES 9.5 %; LYMPHOCYTES ABSOLUTE 0.84 10/3/uL (0.67-4.30); MEAN CORPUS HGB CONC 35.2 g/dL (32.0-36.0); MEAN CORPUSCULAR HEMOGLOB 30.9 pg (26.0-34.0); MEAN CORPUSCULAR VOLUME 87.6 fL (80-100); MEAN PLATELET VOLUME 8.2 fL (9.2-13.0); MONOCYTES ABSOLUTE 0.53 10/3/uL (0.21-1.20); NEUTROPHILS 80.6 %; NEUTROPHILS ABSOLUTE 7.08 10/3/uL (2.02-8.40); PLATELET COUNT 530 10/3/uL (150-400); RBC DISTRIBUTION WIDTH 15.8 % (12.0-16.0); RED CELL COUNT 2.98 10/6/uL (4.7-6.1); WHITE BLOOD CELLS 8.8 10/3/uL (4.5-10.5)
[2016-10-25 04:48] LABS: MANUAL DIFF NO %
[2016-10-25 04:55] LABS: ALBUMIN 2.3 G/DL (3.5-5.0); BUN (BLOOD UREA NITROGEN) 58 MG/DL (6-23); CALCIUM, SERUM 6.8 MG/DL (8.5-10.4); CHLORIDE, SERUM 103 MMOL/L (96-112); CO2 (CARBON DIOXIDE) 20 MMOL/L (24-34); CREATININE 2.13 MG/DL (0.70-1.30); FREE T4 1.36 NG/DL (0.76-1.46); GFR AFRICAN AMERICAN 38 ML/MIN (>=60); GFR NON AFRICAN AMERICAN 32 ML/MIN (>=60); GLUCOSE, SERUM 79 MG/DL (60-99); PHOSPHORUS, SERUM 3.7 MG/DL (2.5-4.5); POTASSIUM, SERUM 3.1 MMOL/L (3.5-5.3); SODIUM, SERUM 136 MMOL/L (135-148)
[2016-10-25 16:29] LABS: BUN (BLOOD UREA NITROGEN) 48 MG/DL (6-23); CALCIUM, SERUM 6.9 MG/DL (8.5-10.4); CHLORIDE, SERUM 101 MMOL/L (96-112); CO2 (CARBON DIOXIDE) 23 MMOL/L (24-34); GFR AFRICAN AMERICAN 46 ML/MIN (>=60); GFR NON AFRICAN AMERICAN 40 ML/MIN (>=60); GLUCOSE, SERUM 86 MG/DL (60-99); POTASSIUM, SERUM 3.6 MMOL/L (3.5-5.3); SODIUM, SERUM 134 MMOL/L (135-148)
[2016-10-26 04:13] LABS: BASOPHILS 0.2 %; BASOPHILS ABSOLUTE 0.02 10/3/uL (0.0-0.16); EOSINOPHILS 1.5 %; EOSINOPHILS ABSOLUTE 0.13 10/3/uL (0.0-0.53); HEMATOCRIT 25.4 % (40.0-51.0); HEMOGLOBIN 8.8 g/dL (13.6-17.8); IMMATURE GRANULOCYTES ABSOLUTE 0.17 10/3/uL (0.0-0.11); LYMPHOCYTES 4.2 %; LYMPHOCYTES ABSOLUTE 0.36 10/3/uL (0.67-4.30); MEAN CORPUS HGB CONC 34.6 g/dL (32.0-36.0); MEAN CORPUSCULAR HEMOGLOB 30.6 pg (26.0-34.0); MEAN CORPUSCULAR VOLUME 88.2 fL (80-100); MEAN PLATELET VOLUME 7.9 fL (9.2-13.0); MONOCYTES 11.1 %; MONOCYTES ABSOLUTE 0.95 10/3/uL (0.21-1.20); NEUTROPHILS ABSOLUTE 6.91 10/3/uL (2.02-8.40); PLATELET COUNT 503 10/3/uL (150-400); RBC DISTRIBUTION WIDTH 15.6 % (12.0-16.0); RED CELL COUNT 2.88 10/6/uL (4.7-6.1); WHITE BLOOD CELLS 8.5 10/3/uL (4.5-10.5)
[2016-10-26 04:14] LABS: MANUAL DIFF NO %
[2016-10-26 04:33] LABS: ALBUMIN 2.2 G/DL (3.5-5.0); CALCIUM, SERUM 7.2 MG/DL (8.5-10.4); CHLORIDE, SERUM 102 MMOL/L (96-112); CO2 (CARBON DIOXIDE) 22 MMOL/L (24-34); CREATININE 1.72 MG/DL (0.70-1.30); GFR AFRICAN AMERICAN 49 ML/MIN (>=60); GFR NON AFRICAN AMERICAN 42 ML/MIN (>=60); GLUCOSE, SERUM 79 MG/DL (60-99); POTASSIUM, SERUM 3.9 MMOL/L (3.5-5.3); SODIUM, SERUM 136 MMOL/L (135-148)
[2016-10-26 04:35] LABS: BUN (BLOOD UREA NITROGEN) 40 MG/DL (6-23); PHOSPHORUS, SERUM 2.1 MG/DL (2.5-4.5)
[2016-10-26 15:09] LABS: WBC (NOT ORDERED) (RFLEX) 0 (0-5)
[2016-10-26 15:24] LABS: ASCORBIC ACID (UR NOT ORDER) NEG (NEG); BILIRUBIN, URINE NEGATIVE (NEG); KETONE, URINE NEGATIVE (NEG); LEUKOCYTE ESTERASE(NOT OR NEG (NEG)
[2016-10-27 04:50] LABS: BASOPHILS 0.4 %; BASOPHILS ABSOLUTE 0.04 10/3/uL (0.0-0.16); EOSINOPHILS 1.7 %; EOSINOPHILS ABSOLUTE 0.17 10/3/uL (0.0-0.53); HEMOGLOBIN 9.4 g/dL (13.6-17.8); IMMATURE GRANULOCYTES 1.7 %; IMMATURE GRANULOCYTES ABSOLUTE 0.17 10/3/uL (0.0-0.11); LYMPHOCYTES 8.4 %; LYMPHOCYTES ABSOLUTE 0.86 10/3/uL (0.67-4.30); MEAN CORPUS HGB CONC 34.8 g/dL (32.0-36.0); MEAN CORPUSCULAR HEMOGLOB 30.7 pg (26.0-34.0); MEAN CORPUSCULAR VOLUME 88.2 fL (80-100); MEAN PLATELET VOLUME 8.2 fL (9.2-13.0); MONOCYTES 8.8 %; NEUTROPHILS ABSOLUTE 8.05 10/3/uL (2.02-8.40); PLATELET COUNT 512 10/3/uL (150-400); RBC DISTRIBUTION WIDTH 15.7 % (12.0-16.0); RED CELL COUNT 3.06 10/6/uL (4.7-6.1); WHITE BLOOD CELLS 10.2 10/3/uL (4.5-10.5)
[2016-10-27 04:57] LABS: MANUAL DIFF NO %
[2016-10-27 05:09] LABS: ALBUMIN 2.4 G/DL (3.5-5.0); BUN (BLOOD UREA NITROGEN) 39 MG/DL (6-23); CALCIUM, SERUM 7.8 MG/DL (8.5-10.4); CHLORIDE, SERUM 102 MMOL/L (96-112); CO2 (CARBON DIOXIDE) 21 MMOL/L (24-34); CREATININE 1.72 MG/DL (0.70-1.30); GFR AFRICAN AMERICAN 49 ML/MIN (>=60); GFR NON AFRICAN AMERICAN 42 ML/MIN (>=60); GLUCOSE, SERUM 88 MG/DL (60-99); PHOSPHORUS, SERUM 2.4 MG/DL (2.5-4.5); POTASSIUM, SERUM 4.2 MMOL/L (3.5-5.3); SODIUM, SERUM 136 MMOL/L (135-148)
[2016-10-29 04:09] LABS: BASOPHILS 0.2 %; BASOPHILS ABSOLUTE 0.02 10/3/uL (0.0-0.16); EOSINOPHILS 1.9 %; EOSINOPHILS ABSOLUTE 0.17 10/3/uL (0.0-0.53); HEMATOCRIT 25.6 % (40.0-51.0); HEMOGLOBIN 8.5 g/dL (13.6-17.8); IMMATURE GRANULOCYTES 1.6 %; IMMATURE GRANULOCYTES ABSOLUTE 0.15 10/3/uL (0.0-0.11); LYMPHOCYTES ABSOLUTE 0.36 10/3/uL (0.67-4.30); MEAN CORPUS HGB CONC 33.2 g/dL (32.0-36.0); MEAN CORPUSCULAR HEMOGLOB 29.8 pg (26.0-34.0); MEAN CORPUSCULAR VOLUME 89.8 fL (80-100); MEAN PLATELET VOLUME 8.4 fL (9.2-13.0); MONOCYTES 13.2 %; NEUTROPHILS 79.1 %; NEUTROPHILS ABSOLUTE 7.21 10/3/uL (2.02-8.40); PLATELET COUNT 439 10/3/uL (150-400); RBC DISTRIBUTION WIDTH 15.7 % (12.0-16.0); RED CELL COUNT 2.85 10/6/uL (4.7-6.1); WHITE BLOOD CELLS 9.1 10/3/uL (4.5-10.5)
[2016-10-29 04:15] LABS: CALCIUM, SERUM 8.2 MG/DL (8.5-10.4); CHLORIDE, SERUM 100 MMOL/L (96-112); CO2 (CARBON DIOXIDE) 23 MMOL/L (24-34); CREATININE 2.13 MG/DL (0.70-1.30); GFR AFRICAN AMERICAN 38 ML/MIN (>=60); GFR NON AFRICAN AMERICAN 32 ML/MIN (>=60); GLUCOSE, SERUM 97 MG/DL (60-99); POTASSIUM, SERUM 4.5 MMOL/L (3.5-5.3); SODIUM, SERUM 135 MMOL/L (135-148)
[2016-10-29 04:16] LABS: BUN (BLOOD UREA NITROGEN) 49 MG/DL (6-23)
[2016-10-29 04:17] LABS: MANUAL DIFF NO %
[2016-10-29 19:29] LABS: ASCORBIC ACID (UR NOT ORDER) NEG (NEG); BILIRUBIN, URINE NEGATIVE (NEG); KETONE, URINE NEGATIVE (NEG); LEUKOCYTE ESTERASE(NOT OR LARGE (NEG); WBC (NOT ORDERED) (RFLEX) 37 (0-5)
[2016-10-30 06:08] LABS: BASOPHILS 0.2 %; BASOPHILS ABSOLUTE 0.02 10/3/uL (0.0-0.16); EOSINOPHILS 1.8 %; EOSINOPHILS ABSOLUTE 0.19 10/3/uL (0.0-0.53); HEMATOCRIT 24.8 % (40.0-51.0); HEMOGLOBIN 8.5 g/dL (13.6-17.8); IMMATURE GRANULOCYTES 1.3 %; IMMATURE GRANULOCYTES ABSOLUTE 0.14 10/3/uL (0.0-0.11); LYMPHOCYTES 10.6 %; MEAN CORPUS HGB CONC 34.3 g/dL (32.0-36.0); MEAN CORPUSCULAR VOLUME 90.5 fL (80-100); MEAN PLATELET VOLUME 8.5 fL (9.2-13.0); MONOCYTES 9.6 %; NEUTROPHILS 76.5 %; NEUTROPHILS ABSOLUTE 7.95 10/3/uL (2.02-8.40); PLATELET COUNT 332 10/3/uL (150-400); RBC DISTRIBUTION WIDTH 15.8 % (12.0-16.0); RED CELL COUNT 2.74 10/6/uL (4.7-6.1); WHITE BLOOD CELLS 10.4 10/3/uL (4.5-10.5)
[2016-10-30 06:10] LABS: MANUAL DIFF NO %
[2016-10-30 06:21] LABS: CALCIUM, SERUM 8.3 MG/DL (8.5-10.4); CHLORIDE, SERUM 101 MMOL/L (96-112); CO2 (CARBON DIOXIDE) 25 MMOL/L (24-34); CREATININE 1.89 MG/DL (0.70-1.30); GFR AFRICAN AMERICAN 43 ML/MIN (>=60); GFR NON AFRICAN AMERICAN 37 ML/MIN (>=60); GLUCOSE, SERUM 91 MG/DL (60-99); POTASSIUM, SERUM 4.5 MMOL/L (3.5-5.3); SODIUM, SERUM 137 MMOL/L (135-148)
[2016-10-30 06:22] LABS: BUN (BLOOD UREA NITROGEN) 45 MG/DL (6-23)
[2016-10-31 06:56] LABS: BUN (BLOOD UREA NITROGEN) 42 MG/DL (6-23); CALCIUM, SERUM 8.6 MG/DL (8.5-10.4); CHLORIDE, SERUM 98 MMOL/L (96-112); CO2 (CARBON DIOXIDE) 28 MMOL/L (24-34); CREATININE 1.78 MG/DL (0.70-1.30); GFR AFRICAN AMERICAN 47 ML/MIN (>=60); GFR NON AFRICAN AMERICAN 40 ML/MIN (>=60); GLUCOSE, SERUM 112 MG/DL (60-99); POTASSIUM, SERUM 4.6 MMOL/L (3.5-5.3); SODIUM, SERUM 135 MMOL/L (135-148)
[2016-11-01 04:52] LABS: BUN (BLOOD UREA NITROGEN) 39 MG/DL (6-23); CALCIUM, SERUM 8.6 MG/DL (8.5-10.4); CHLORIDE, SERUM 99 MMOL/L (96-112); CO2 (CARBON DIOXIDE) 26 MMOL/L (24-34); CREATININE 1.67 MG/DL (0.70-1.30); GFR AFRICAN AMERICAN 50 ML/MIN (>=60); GFR NON AFRICAN AMERICAN 44 ML/MIN (>=60); POTASSIUM, SERUM 5.1 MMOL/L (3.5-5.3); SODIUM, SERUM 134 MMOL/L (135-148)
[2016-11-01 04:55] LABS: GLUCOSE, SERUM 88 MG/DL (60-99)
== END 2016-11-02 14:18 | DRG 683 ==
LOC: ER 15:17 → 7NO 19:17
PROVIDERS: Emergency Medicine; Hospitalist; Internal Medicine; Internal Medicine Nephrology; Thoracic Surgery (Cardiothoracic Vascular Surgery)
DX: N17.0 Acute kidney failure with tubular necrosis (principal); N39.0 Urinary tract infection, site not specified; E87.2 Acidosis; C20 Malignant neoplasm of rectum; E87.1 Hypo-osmolality and hyponatremia; I12.9 Hypertensive chronic kidney disease with stage 1 through stage 4 chronic kidney disease, or unspecified chronic kidney disease; B96.89 Other specified bacterial agents as the cause of diseases classified elsewhere; F25.0 Schizoaffective disorder, bipolar type; N18.3 Chronic kidney disease, stage 3 (moderate); E86.0 Dehydration; F25.9 Schizoaffective disorder, unspecified; R33.9 Retention of urine, unspecified; D64.9 Anemia, unspecified; R32 Unspecified urinary incontinence; Z93.2 Ileostomy status
CPT/HCPCS: 71010; 74176; 76775; 80048; 80053; 80069; 81001; 82330; 83735; 84300; 84439; 84443; 84484; 85025; 85610; 85730; 87077; 87086; 87186; 93005; 96374; 97116-GP; 97161-GP; 99285; A9270-GY; G8978-CK-GP; G8979-CH-GP; J2405; P9047

== ENCOUNTER 2016-12-22 15:56 | Inpatient (IN) | payer MEDICARE, OTHER ==
--- NOTE | ~2016-12-22 | CN ---
Consultation Report [facility] [address] [place]. [address] NAME: JODI BOSWELL : 53 STATUS : ADM IN [facility]#: [id number] AGE: 61 ADM/REG DATE : 12/22/16 MR#: [id number] REPORT SERV DATE: 12/25/16 DICTATED BY: SU JIANG DATE: 12/25/16 REPORT STATUS : Draft TRANSCRIBED BY: MODL DATE: 12/25/16 INFECTIOUS DISEASE CONSULT DATE OF CONSULTATION: REASON FOR REFERRAL: Evaluation and treatment of staph sepsis. HISTORY OF PRESENT ILLNESS: The patient is a 61-year-old male. He has a history of schizoaffective disorder, and for that reason, lives in a long-term. He has had rectal cancer for which he underwent a resection in 09/2016, it is a stage IIIB disease. He has a colostomy. He has chronic renal insufficiency and he has chronic difficulty with urinary retention and so has a chronic Bardales. He was feeling worse, was seen by his camera supervisor on 12/22/2016 and found to have a creatinine of 11 above his baseline of 1 to 2, and so he was admitted. He had no fever, but did have a markedly elevated white blood cell count, so cultures were done. Initially, urine was growing a Staph aureus, so doxycycline was begun, but now today blood culture one of two has returned positive for MRSA. He is being started immediately on vancomycin. He has continued to be afebrile. White blood cell count has improved and his creatinine is coming down as well. Per the history of the people who follow him normally, he apparently frequently manipulates his Bardales and has had difficulty with irritation and infections there before and has grown MRSA from it before. PAST MEDICAL HISTORY: Otherwise unremarkable. MEDICATIONS: He is on vancomycin. ALLERGIES: NO KNOWN ANTIMICROBIAL ALLERGIES. SOCIAL HISTORY: Nonsmoker. No history of alcohol or substance abuse. FAMILY HISTORY: Noncontributory. PHYSICAL EXAMINATION: GENERAL: Nontoxic, adult male, in no acute distress. He is awake and alert, interacting normally at present. VITAL SIGNS: His temperature is 98.4, pulse 99, respirations 16, blood pressure 136/78. Weight is 86 kg. HEENT: Sclerae are clear. No oral lesions. NECK: Supple. LUNGS: Clear. HEART: Regular rate and rhythm. No murmurs appreciated. ABDOMEN: Soft, nontender. Positive bowel sounds. Colostomy site looks good. : There is no ulceration or irritation on his penis at the tip. Bardales is in place. EXTREMITIES: Without clubbing or cyanosis. No evidence of peripheral emboli. Consultation Report [facility] [id number] [place]. [address] NAME: JODI BOSWELL : 53 STATUS : ADM IN PAT#: [id number] AGE: 61 ADM/REG DATE : 12/22/16 MR#: [id number] REPORT SERV DATE: 12/25/16 DICTATED BY: SU JIANG DATE: 12/25/16 REPORT STATUS : Draft TRANSCRIBED BY: BRONSON DATE: 12/25/16 LABORATORY DATA: White blood cell count 24.7 when he came in, was down to 12.1 yesterday, 9.6 today, with a hematocrit of 28.4, platelets 381. BUN and creatinine 66 and creatinine now 5.65. IMPRESSION: Methicillin-resistant Staphylococcus aureus sepsis due to genitourinary tract source from a Bardales, probably from localized trauma done by the patient. RECOMMENDATIONS: 1. Begin vancomycin right away. 2. Stop the doxycycline as well as the Rocephin that was begun at admission. 3. He will need repeat blood cultures in 48 hours to ensure the bacteremia has been cleared. Ultimately, he will need at least two weeks of IV treatment for this. 4. I will follow the patient with you. I appreciate very much your consulting on this patient. BLADIMIR Su Jiang M.D. / [id number] CC: MD Milton Perez M.D.
--- NOTE | ~2016-12-22 | DS ---
Discharge Summary [facility] [address] [place]. [address] NAME: JODI BOSWELL : 53 STATUS : ADM IN [facility]#: [id number] AGE: 61 ADM/REG DATE : 12/22/16 MR#: [id number] REPORT SERV DATE: 12/28/16 DICTATED BY: DATE: REPORT STATUS : Draft TRANSCRIBED BY: MODL DATE: 12/27/16 ADMISSION DATE: 12/22/2016 DISCHARGE DATE: 12/27/2016 DISCHARGE DIAGNOSES: 1. Methicillin-resistant Staphylococcus aureus uremia secondary to urinary tract infection. 2. Methicillin-resistant Staphylococcus aureus bacteremia. 3. Hyponatremia. 4. Post-renal acute kidney injury secondary to obstruction. 5. Chronic kidney disease, stage III. 6. Rectal colon cancer with ileostomy. 7. 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 8. Schizoaffective disorder. CONSULTATIONS: Infectious Diseases, Dr. Pina and Nephrology, Dr. Ram. PROCEDURES AND IMAGIN12/22/2016, portable chest x-ray showed stable appearance of the chest with no acute process. 12/23/2016, renal ultrasound showed: 1. Bilateral mild hydronephrosis and bladder distention possibly the bases of nonfunctioning or malpositioned Bardales catheter. 2. Mild renal cortical thinning. 3. Fluid debris level in the bladder either related to hematuria or infection. HOSPITAL COURSE: Please refer to Dr. Osuna's history and physical on 12/22/2016, for complete details regarding the patient's admission. In brief, the patient was admitted to Dr. Osuna for abnormal lab values at his doctor's office. The patient had gone to see his cyanide pot tender and showed markedly elevated serum creatinine of 11.7 with BUN of 81. The patient was also noted to have UTI and was in metabolic acidosis. Please see consultation on 12/22/2016, dictated by Dr. Praful Bae. The patient was discovered to have post renal kidney injury due to obstruction, which was resolved with replacement of his chronic Bardales catheter. Bardales catheter is continued to be irrigated while the patient has been here to maintain patency. It is recommended for the patient's Bardales to be replaced in one week to maintain patency at the nursing facility. The patient's urine culture came back on 12/22/2016, with MRSA, and Infectious Diseases was consulted. Please see dictation by Dr. Brennan Pina. The patient has had no fever during his stay and has had no symptoms of chills or fevers. The patient has continued to eat well. Frequent discussion has been held with the patient's sister, Rhina Chaney regarding the patient's care and daily status. The patient's initial hyponatremia of 122 has now resolved to sodium of 137. The patient's initial creatinine of 11.7 is now 2.55. BUN on admission was 81 and is currently 39. GFR on admission was 5 and it is currently 30. The patient has a recent history of rectal cancer for which he received Discharge Summary [address] [address] NAME: JODI BOSWELL : 53 STATUS : ADM IN [facility]#: [id number] AGE: 61 ADM/REG DATE : 12/22/16 MR#: [id number] REPORT SERV DATE: 12/28/16 DICTATED BY: DATE: REPORT STATUS : Draft TRANSCRIBED BY: MODOmaira DATE: 12/27/16 an ileostomy in 09/[address] Jhonny Angulo. The patient has had multiple UTIs since insertion of his chronic Bardales catheter, and has had Morganella morganii and MRSA. The patient was initially on a bicarb drip until his anion gap closed on 12/24/2016. His initial procalcitonin was 35.14. The patient does have a history of hypertension, which has been stable on no medication. Of note, the patient is patient of Dr. Iyer and had seen him the week prior to his visit here. Dr. Iyer has tried to discuss with the patient the need for suprapubic catheter, but the patient is reluctant to do at this time. Power of senior attorney is aware of this and is very involved in the patient's care. PHYSICAL EXAMINATION: GENERAL: The patient denies any complaint of discomfort and is able to get out of bed with assistance. The patient has a chronic indwelling Bardales which has light-yellow urine. VITAL SIGNS: Current blood pressure is 144/84, O2 saturation is 97% on room air, temperature is 97.9, respirations are 16, heart rate is 96. HEENT: Head is atraumatic, normocephalic. Pupils are equal, round, reactive to light and accommodation. No xanthelasma. Sclerae are clear. Nonicteric. Good dentition. NECK: Supple with no obvious thyromegaly or lymphadenopathy. Neck veins are flat. CARDIAC: The patient has S1, S2 with no obvious murmurs, rubs, or gallops. LUNGS: Clear to auscultation with normal respiratory effort. GI: The patient has a patent ileostomy with active bowel sounds. ABDOMEN: Soft and nontender. EXTREMITIES: No significant edema, clubbing, or cyanosis. Pulses are present equal bilaterally. MUSCULOSKELETAL: The patient moves all extremities x4. He is ambulatory without assistance. SKIN: Skin is warm and dry with normal color and turgor. Wound site around his ileostomy is without excoriation. NEURO/PSYCH: The patient is alert and oriented x3. He is pleasant and cooperative. Cranial nerves 2 through 12 are grossly intact. The patient does have difficulty with word finding and anxiety. CURRENT LABORATORY: S+odium is 137, potassium is 4.4, chloride is 105, BUN is 39, creatinine is 2.55, GFR is 30, glucose is 97, calcium is 8.2, magnesium is 1.6, phosphorus 2.6. WBC is 9.9, hemoglobin 9.7, hematocrit 29.0, platelets 455. MEDICATIONS: Cogentin 2 mg three times a day, Zyprexa 30 mg at bedtime, sodium chloride 1 g twice daily, Flomax 0.4 mg daily, Tylenol 650 mg p.o. or p.r. q.4 hours p.r.n. temp greater than 101 or for mild pain, calciferol 10,000 units every seven days on Tuesday, vancomycin 750 mg IV daily for 14 days. ALLERGIES: THE PATIENT IS ALLERGIC TO LATEX FOR WHICH HE GETS RASH. DISCHARGE INSTRUCTIONS: The patient is to have Bardales catheter replaced in one week at facility as well as irrigations with 60 mL q.8 hours. The patient is to have CBC, BMP, and vancomycin trough and fax to Dr. Pina's office as well as to Dr. Ram's office. The patient will be notified per Dr. Pina when he should have a followup visit and Dr. Ram's office will also notify the patient for followup visit. The patient will be following up with Dr. Iyer in approximately one month. This has been discussed with the Discharge Summary [facility] [address] [address] [address] NAME: JODI BOSEWLL : 53 STATUS : ADM IN PAT#: [id number] AGE: 61 ADM/REG DATE : 12/22/16 MR#: [id number] REPORT SERV DATE: 12/28/16 DICTATED BY: DATE: REPORT STATUS : Draft TRANSCRIBED BY: MODL DATE: 12/27/16 patient's power of senior attorney, Rhina Chaney. Approximately 40 minutes has been spent coordinating discharge care of this patient including [id number] encounter and summarization of the discharge. DICTATED BY: LAVON Monte/BRONSON Janae Huggins NP / [id number] CC: MD Milton Perez M.D.
--- NOTE | ~2016-12-22 | HP ---
History And Physical [facility] [address] [place]. [address] NAME: JODI BOSWELL : 53 STATUS : ADM IN [facility]#: [id number] AGE: 61 ADM/REG DATE : 12/22/16 MR#: [id number] REPORT SERV DATE: 12/23/16 DICTATED BY: JARRETT PEÑA DATE: 12/22/16 REPORT STATUS : Draft TRANSCRIBED BY: MODL DATE: 12/22/16 DATE OF ADMISSION: 12/22/2016 CHIEF COMPLAINT: Had abnormal lab values at his doctor's place. HISTORY OF PRESENT ILLNESS: This is a 61-year-old male with seizure affective disorder, bipolar disorder, and chronic kidney disease stage 3, who presented to his advisory services associate office today and lab work there showed a markedly elevated serum creatinine. The patient was sent to the emergency room for further evaluation. In the emergency room, his initial workup showed a BUN of 81 and creatinine of 11.7 today. He also had a urinary tract infection and leukocytosis and metabolic acidosis as well. Hospitalist Service is asked to admit him for further evaluation and treatment. At the time of my evaluation, Mr. Boswell was alert and awake, oriented as well. However due to his psychiatric issues he could not recall any history or tell me anything about the past few days. The only thing we could get out of him was he lives in a jail, with six or seven other people who to take care of him also. No other details are available from him. Not much was available in the form of data which accompanied the patient as well. However, he denied having any chest pain or palpitations. He did not have any cough in the last few days according to him. He denied any hemoptysis, night sweats, or weight loss. He has not had any falls or loss of consciousness. No bleeding anywhere. No nausea, vomiting, or diarrhea. SOCIAL HISTORY: He used to smoke a long time ago. He denies alcohol use or recreational drug use. FAMILY HISTORY: Noncontributory. MEDICATIONS: His medications at home were reviewed by me in the chart today and reordered by me. REVIEW OF SYSTEMS: As in history of present illness. It is impossible to get a reliable review of systems from Mr. Boswell; however, the highlights are as in the history of present illness. PHYSICAL EXAMINATION: GENERAL: This is a 61-year-old, again with psychiatric problems, but able to follow commands and answer a few questions as well. HEENT: His head is atraumatic and normocephalic. He is alert, awake, oriented to time, place, and person. Pupils are equal, reacting to light and accommodating. External ocular muscles are intact. Membranes are moist and pink. Sclerae are nonicteric. NECK: Supple with no jugular venous distention, lymphadenopathy, or thyromegaly. LUNGS: Clear to auscultation with no wheezes, rubs, or crackles. HEART: Heart sounds were regular with no murmurs, rubs, or gallops. ABDOMEN: Soft and nontender. Bowel sounds are present. History And Physical [address] [address] NAME: JODI BOSWELL : 53 STATUS : ADM IN [facility]#: [id number] AGE: 61 ADM/REG DATE : 12/22/16 MR#: [id number] REPORT SERV DATE: 12/23/16 DICTATED BY: JARRETT PEÑA DATE: 12/22/16 REPORT STATUS : Draft TRANSCRIBED BY: BRONSON DATE: 12/22/16 EXTREMITIES: No cyanosis, clubbing, or edema. NEUROLOGIC: Grossly intact. No focal deficits. VITAL SIGNS: Today showed a temperature of 98.2, pulse 78, respirations 22 a minute, blood pressure was 119/63, and oxygen saturations were 98% on 2 L of oxygen via nasal cannula. LABORATORY DATA: Reviewed on the [employer] system showed a sodium of 122, potassium 4.8, chloride 87, CO2 of 16, BUN was 81 with a creatinine of 11.70, and glucose was 107. His procalcitonin was 35.14. His albumin was 2.6. Alkaline phosphatase was 182. Normal ALT and AST. Lipase was 113. Troponin was 0.02 and lactate was 1.9. [place] [address], hemoglobin was 10.8, hematocrit 29.6, and platelet count was 340,000. Prothrombin time was 17.2 with an INR of 1.4 today. Urinalysis showed moderate leukocyte esterase, nitrite was negative, 80 rbc's, more than 182 wbc's, and few bacteria. Films of the chest x-ray were reviewed by me on the PACS today and interpreted by me. Per my interpretation, there is no acute pulmonary disease. No lobar consolidations or pleural effusions were seen. Compared to his previous films available on the PACS, which I reviewed there has been no significant change. IMPRESSION: 1. Acute kidney injury. 2. Urinary tract infection. 3. Leukocytosis. 4. Dehydration. 5. Chronic kidney disease, stage 3. 6. Anion gap metabolic acidosis. 7. Stage IIIB rectal adenocarcinoma with colostomy. 8. Schizoaffective disorder. 9. Bipolar disorder. 10.Essential hypertension. 11.History of deep venous thrombosis. PLAN: We will admit Mr. Boswell to the Hospitalist Service with telemetry. We will start him on IV fluids with sodium bicarbonate as ordered for volume resuscitation tonight. We will go ahead and repeat his chemistry along with renal function and CBC in the morning, and proceed accordingly. We will go ahead and consult Nephrology Service to see him as well. The ER physician had already spoken with Dr. Bae, who is aware of the patient's presentation in the ER. At this time, we will go ahead and hold his home medications, reassess him in the morning and resume if appropriate. Some of his psych medications do have some nephrotoxicity. We will also place him on low-dose unfractionated heparin subcutaneously for DVT prophylaxis at this time. I have discussed the above plans with the patient. His questions were answered and he is agreeable to the above recommendations. Hospitalist Service will be following him during his stay here. History And Physical [address] [address] NAME: JODI BOSWELL : 53 STATUS : ADM IN [facility]#: [id number] AGE: 61 ADM/REG DATE : 12/22/16 MR#: [id number] REPORT SERV DATE: 12/23/16 DICTATED BY: JARRETT PEÑA DATE: 12/22/16 REPORT STATUS : Draft TRANSCRIBED BY: BRONSON DATE: 12/22/16 /BRONSON Jarrett Peña M.D. / [id number] CC: MD Milton Perez M.D.
--- NOTE | ~2016-12-22 | CN ---
Consultation Report [facility] [address] [place]. [address] NAME: JODI BOSWELL : 53 STATUS : ADM IN [facility]#: [id number] AGE: 61 ADM/REG DATE : 12/22/16 MR#: [id number] REPORT SERV DATE: 12/23/16 DICTATED BY: PRAFUL BAE DATE: 12/22/16 REPORT STATUS : Draft TRANSCRIBED BY: MODL DATE: 12/22/16 NEPHROLOGY CONSULT DATE OF CONSULTATION: 12/22/2016 CHIEF COMPLAINT: Acute kidney insufficiency and hyponatremia. HISTORY OF PRESENT ILLNESS: The patient is a 61-year-old white male who lives in a snf and has learning disability. He was seen in followup in [facility] for CKD and status post hospitalization for acute kidney insufficiency. In lab orders at our [facility] revealed a creatinine of 11.8, he was sent to the to the emergency department for further evaluation. His creatinine was confirmed to be 11.7. It was also noted to have a sodium 122 and a CO2 of 16. The patient does not have a urinalysis at this time. However, he has a chronic Bardales catheter and shows gross hematuria and he is noted to have elevated white blood count 24.7, concerning for possible urinary tract infection. He had a renal ultrasound completed in October 2016 that showed normal sized kidneys without any evidence of hydronephrosis, but had Bardales catheter placed for chronic urinary retention. PAST MEDICAL/PAST SURGICAL HISTORY: Rectal cancer, status post resection in September 2016, stage IIIB, followed by Dr. Vicki Kramer. He has a history of remote perforation of his viscous with small-bowel obstruction. He has chronic colostomy which was present prior to his surgery for his rectal cancer. He has a schizoaffective disorder, right bundle branch block, CKD 3 with creatinine 1.5 to 1.9. He had been seen for acute kidney insufficiency in August and September of 2016. He has a history of urinary retentions and testicular torsion. SOCIAL HISTORY: He lives in a snf. No tobacco, alcohol or drugs. FAMILY MEDICAL HISTORY: No known kidney disease. ALLERGIES: NO KNOWN DRUG ALLERGIES. HOME MEDICATIONS: Olanzapine 20 mg daily. Tamsulosin 0.4 mg daily. Sodium chloride 1 g p.o. b.i.d. He is on also benztropine mesylate 2 mg b.i.d. REVIEW OF SYSTEMS: Complete review of systems negative, otherwise stated in the HPI. PHYSICAL EXAMINATION: VITAL SIGNS: He is afebrile, pulses 110, systolic blood pressure is 110s/60s. GENERAL: He is no apparent distress. NEUROLOGIC: He is alert. Has with speech. Answers questions appropriately. SKIN: No petechiae or purpura. Warm to touch. HEENT: Normocephalic. No scleral icterus. NECK: No JVP. Trachea is midline. Consultation Report [address] [place]. [address] NAME: JODI BOSWELL : 53 STATUS : ADM IN [facility]#: [id number] AGE: 61 ADM/REG DATE : 12/22/16 MR#: [id number] REPORT SERV DATE: 12/23/16 DICTATED BY: PRAFUL BAE. DATE: 12/22/16 REPORT STATUS : Draft TRANSCRIBED BY: MODL DATE: 12/22/16 CARDIOVASCULAR: Regular rate and rhythm. No gallops, rubs, or murmurs. RESPIRATORY: Clear to auscultation bilaterally. ABDOMEN: Soft, nontender, nondistended. Positive bowel sounds. EXTREMITIES: No peripheral edema. LABORATORY AND X-RAY DATA: Sodium is 122, potassium is 4.6, chloride is 87, bicarb is 16, BUN is 87, creatinine is 11.7, glucose is 107, magnesium is 1.6. Calcium is 8.3, albumin is 2.6. ASSESSMENT: 1. Acute kidney insufficiency secondary to urinary tract infection and hypovolemia. 2. Anion gap metabolic acidosis secondary to acute kidney insufficiency. 3. Hypotonic hyponatremia with a sodium of 122. The patient appears to be volume depleted. However, with being on antipsychotics, we always have to be were concerned about syndrome inappropriate antidiuretic hormone associated with medications. 4. Urinary tract infection. 5. Stage III chronic kidney disease. 6. Anemia of chronic kidney disease. 7. Bicarb drip. A.m. labs. SGG/MODL Praful Bae M.D. / [id number] CC: MD Milton Perez M.D.
[~2016-12-22 15:56] MED LIST changes: +FLOMAX4 PO; +SODCLTAB PO
[2016-12-22 18:45] LABS: BASOPHILS 0 %; BASOPHILS ABSOLUTE 0.01 10/3/uL (0.0-0.16); EOSINOPHILS 0.1 %; EOSINOPHILS ABSOLUTE 0.03 10/3/uL (0.0-0.53); IMMATURE GRANULOCYTES 0.8 %; IMMATURE GRANULOCYTES ABSOLUTE 0.19 10/3/uL (0.0-0.11); LYMPHOCYTES 3.2 %; LYMPHOCYTES ABSOLUTE 0.78 10/3/uL (0.67-4.30); MEAN CORPUSCULAR HEMOGLOB 31.2 pg (26.0-34.0); MEAN PLATELET VOLUME 9.5 fL (9.2-13.0); MONOCYTES ABSOLUTE 1.49 10/3/uL (0.21-1.20); NEUTROPHILS 89.9 %; NEUTROPHILS ABSOLUTE 22.24 10/3/uL (2.02-8.40); PLATELET COUNT 340 10/3/uL (150-400); RBC DISTRIBUTION WIDTH 14.2 % (12.0-16.0)
[2016-12-22 18:48] LABS: ER CBC TAT 0 Hrs 09 Mins; HEMOGLOBIN 10.8 g/dL (13.6-17.8); RED CELL COUNT 3.46 10/6/uL (4.7-6.1); WHITE BLOOD CELLS 24.7 10/3/uL (4.5-10.5)
[2016-12-22 18:49] LABS: HEMATOCRIT 29.6 % (40.0-51.0); MANUAL DIFF NO %; MEAN CORPUS HGB CONC 36.5 g/dL (32.0-36.0); MEAN CORPUSCULAR VOLUME 85.5 fL (80-100)
[2016-12-22 19:01] LABS: ALBUMIN 2.5 G/DL (3.5-5.0); CALCIUM, SERUM 8.3 MG/DL (8.5-10.4); POTASSIUM, SERUM 4.8 MMOL/L (3.5-5.3); SGOT(AST) 19 U/L (5-40); SGPT(ALT) 20 U/L (5-65); TOTAL BILIRUBIN 0.4 MG/DL (0-1.2); TOTAL PROTEIN 6.8 G/DL (6.0-8.5)
[2016-12-22 19:02] LABS: A/G RATIO 0.6 (0.7-1.9); ALKALINE PHOSPHATASE 182 U/L (45-117); BUN (BLOOD UREA NITROGEN) 81 MG/DL (6-23); CHLORIDE, SERUM 87 MMOL/L (96-112); CO2 (CARBON DIOXIDE) 16 MMOL/L (24-34); GFR AFRICAN AMERICAN 5 ML/MIN (>=60); GFR NON AFRICAN AMERICAN 4 ML/MIN (>=60); GLOBULIN 4.3 G/DL (2.5-4.1); GLUCOSE, SERUM 107 MG/DL (60-99); SODIUM, SERUM 122 MMOL/L (135-148)
[2016-12-22 19:14] LABS: ER DIFF TAT 0 Hrs 35 Mins; LYMPHOCYTES 7 %; LYMPHOCYTES ABSOLUTE (CALC) 1.73 10/3/uL (0.67-4.30); MONOCYTES 4 %; MONOCYTES ABSOLUTE (CALC) 0.99 10/3/uL (0.21-1.20); NEUTROPHILS ABSOLUTE (CALC) 21.98 10/3/uL (2.02-8.40); PLATELET ESTIMATE ADQ (ADEQUATE); RBC MORPHOLOGY NORM (NORMAL); SEGMENTED NEUTROPHIL (0) 89 %; TOTAL NUCLEATED CELLS 100
[2016-12-22] MEDS ORDERED: FLOMAX4 PO (20:05)
[2016-12-22] MEDS ORDERED: SODCLTAB PO (20:06)
[2016-12-22] MEDS ORDERED: COG2 PO (20:06)
[2016-12-22] MEDS ORDERED: PROAMATINE10 MG PO (20:07)
[2016-12-22] MEDS ORDERED: ZYPREXA15 MG PO (20:08)
[2016-12-22] MEDS ORDERED: MAXIMUM D3 PO (20:09)
[2016-12-22 20:21] LABS: ASCORBIC ACID (UR NOT ORDER) NEG (NEG); BILIRUBIN, URINE NEGATIVE (NEG); ER URINALYSIS TAT 0 Hrs 20 Mins; KETONE, URINE NEGATIVE (NEG); LEUKOCYTE ESTERASE(NOT OR MOD (NEG); NITRITE (URINE) NEG (NEG)
[2016-12-22 20:23] LABS: WBC (NOT ORDERED) (RFLEX) > 182 (0-5)
[2016-12-22 20:33] LABS: INTERNATIONAL NORMAL RATI 1.4 UNITS (-); PARTIAL THROMBO TIME 36.8 SEC (22.5-37.2); PROTIME (NOT ORD) 17.3 SEC (12.0-14.5)
[2016-12-22 20:42] LABS: ALBUMIN 2.6 G/DL (3.5-5.0); DIRECT BILIRUBIN 0.1 MG/DL (0.0-0.4); INDIRECT BILIRUBIN(NOT ORDER) 0.4 MG/DL (0.1-0.9); TOTAL BILIRUBIN 0.5 MG/DL (0-1.2); TOTAL PROTEIN 6.8 G/DL (6.0-8.5)
[2016-12-22 20:44] LABS: LACTATE 1.9 MMOL/L (0.3-2.4)
[2016-12-22 21:01] LABS: PROCALCITONIN 35.14 ng/mL (<0.5)
[2016-12-23 04:50] LABS: SODIUM, URINE 89 MEQ/L
[2016-12-23 04:53] LABS: OSMOLALITY, URINE 278 MOSM/KG (50-1200)
[2016-12-23 07:07] LABS: BASOPHILS 0 %; BASOPHILS ABSOLUTE 0.01 10/3/uL (0.0-0.16); EOSINOPHILS 0.6 %; EOSINOPHILS ABSOLUTE 0.12 10/3/uL (0.0-0.53); HEMATOCRIT 27.6 % (40.0-51.0); HEMOGLOBIN 9.9 g/dL (13.6-17.8); IMMATURE GRANULOCYTES 0.4 %; IMMATURE GRANULOCYTES ABSOLUTE 0.09 10/3/uL (0.0-0.11); LYMPHOCYTES 4.7 %; LYMPHOCYTES ABSOLUTE 0.94 10/3/uL (0.67-4.30); MEAN CORPUS HGB CONC 35.9 g/dL (32.0-36.0); MEAN CORPUSCULAR HEMOGLOB 30.8 pg (26.0-34.0); MEAN PLATELET VOLUME 9.9 fL (9.2-13.0); NEUTROPHILS 88.3 %; PLATELET COUNT 322 10/3/uL (150-400); RBC DISTRIBUTION WIDTH 14.2 % (12.0-16.0); RED CELL COUNT 3.21 10/6/uL (4.7-6.1); WHITE BLOOD CELLS 20.1 10/3/uL (4.5-10.5)
[2016-12-23 07:11] LABS: MANUAL DIFF NO %
[2016-12-23 07:26] LABS: CALCIUM, SERUM 7.9 MG/DL (8.5-10.4); CHLORIDE, SERUM 89 MMOL/L (96-112); CO2 (CARBON DIOXIDE) 16 MMOL/L (24-34); GFR AFRICAN AMERICAN 5 ML/MIN (>=60); GFR NON AFRICAN AMERICAN 4 ML/MIN (>=60); GLUCOSE, SERUM 95 MG/DL (60-99); POTASSIUM, SERUM 4.1 MMOL/L (3.5-5.3); SODIUM, SERUM 122 MMOL/L (135-148)
[2016-12-23 07:27] LABS: BUN (BLOOD UREA NITROGEN) 85 MG/DL (6-23); PHOSPHORUS, SERUM 7.4 MG/DL (2.5-4.5)
[2016-12-23 14:43] LABS: ALBUMIN 2.2 G/DL (3.5-5.0); BUN (BLOOD UREA NITROGEN) 88 MG/DL (6-23); CALCIUM, SERUM 7.8 MG/DL (8.5-10.4); CHLORIDE, SERUM 84 MMOL/L (96-112); CO2 (CARBON DIOXIDE) 20 MMOL/L (24-34); GFR AFRICAN AMERICAN 5 ML/MIN (>=60); GFR NON AFRICAN AMERICAN 4 ML/MIN (>=60); GLUCOSE, SERUM 88 MG/DL (60-99); PHOSPHORUS, SERUM 7.2 MG/DL (2.5-4.5); POTASSIUM, SERUM 4.2 MMOL/L (3.5-5.3); SODIUM, SERUM 122 MMOL/L (135-148)
[2016-12-23 16:00] LABS: ASCORBIC ACID (UR NOT ORDER) NEG (NEG); BILIRUBIN, URINE NEGATIVE (NEG); KETONE, URINE NEGATIVE (NEG); LEUKOCYTE ESTERASE(NOT OR LARGE (NEG); WBC (NOT ORDERED) (RFLEX) > 182 (0-5)
[2016-12-24 07:06] LABS: BASOPHILS 0.1 %; BASOPHILS ABSOLUTE 0.01 10/3/uL (0.0-0.16); EOSINOPHILS 2.2 %; EOSINOPHILS ABSOLUTE 0.27 10/3/uL (0.0-0.53); HEMOGLOBIN 8.8 g/dL (13.6-17.8); IMMATURE GRANULOCYTES 0.6 %; IMMATURE GRANULOCYTES ABSOLUTE 0.07 10/3/uL (0.0-0.11); LYMPHOCYTES 2.6 %; LYMPHOCYTES ABSOLUTE 0.31 10/3/uL (0.67-4.30); MEAN CORPUS HGB CONC 35.9 g/dL (32.0-36.0); MEAN CORPUSCULAR HEMOGLOB 30.3 pg (26.0-34.0); MEAN CORPUSCULAR VOLUME 84.5 fL (80-100); MEAN PLATELET VOLUME 9.8 fL (9.2-13.0); MONOCYTES 7.6 %; MONOCYTES ABSOLUTE 0.92 10/3/uL (0.21-1.20); NEUTROPHILS 86.9 %; NEUTROPHILS ABSOLUTE 10.55 10/3/uL (2.02-8.40); PLATELET COUNT 318 10/3/uL (150-400); RBC DISTRIBUTION WIDTH 14.3 % (12.0-16.0); WHITE BLOOD CELLS 12.1 10/3/uL (4.5-10.5)
[2016-12-24 07:08] LABS: HEMATOCRIT 24.5 % (40.0-51.0); MANUAL DIFF NO %
[2016-12-24 07:14] LABS: ALBUMIN 1.7 G/DL (3.5-5.0); BUN (BLOOD UREA NITROGEN) 81 MG/DL (6-23); CALCIUM, SERUM 7.7 MG/DL (8.5-10.4); CHLORIDE, SERUM 86 MMOL/L (96-112); CO2 (CARBON DIOXIDE) 26 MMOL/L (24-34); CREATININE 8.43 MG/DL (0.70-1.30); GFR AFRICAN AMERICAN 7 ML/MIN (>=60); GFR NON AFRICAN AMERICAN 6 ML/MIN (>=60); GLUCOSE, SERUM 99 MG/DL (60-99); POTASSIUM, SERUM 3.3 MMOL/L (3.5-5.3); SODIUM, SERUM 127 MMOL/L (135-148)
[2016-12-24 08:37] LABS: PROCALCITONIN 19.81 ng/mL (<0.5)
[2016-12-24 14:52] LABS: ALBUMIN 1.8 G/DL (3.5-5.0); BUN (BLOOD UREA NITROGEN) 77 MG/DL (6-23); CALCIUM, SERUM 7.3 MG/DL (8.5-10.4); CHLORIDE, SERUM 84 MMOL/L (96-112); CO2 (CARBON DIOXIDE) 29 MMOL/L (24-34); CREATININE 7.44 MG/DL (0.70-1.30); GFR AFRICAN AMERICAN 8 ML/MIN (>=60); GFR NON AFRICAN AMERICAN 7 ML/MIN (>=60); GLUCOSE, SERUM 103 MG/DL (60-99); PHOSPHORUS, SERUM 5.3 MG/DL (2.5-4.5); POTASSIUM, SERUM 3.4 MMOL/L (3.5-5.3); SODIUM, SERUM 124 MMOL/L (135-148)
[2016-12-25 06:36] LABS: BASOPHILS 0.4 %; BASOPHILS ABSOLUTE 0.04 10/3/uL (0.0-0.16); EOSINOPHILS 4.5 %; EOSINOPHILS ABSOLUTE 0.43 10/3/uL (0.0-0.53); HEMOGLOBIN 10.2 g/dL (13.6-17.8); IMMATURE GRANULOCYTES 1.2 %; IMMATURE GRANULOCYTES ABSOLUTE 0.12 10/3/uL (0.0-0.11); LYMPHOCYTES ABSOLUTE 0.96 10/3/uL (0.67-4.30); MEAN CORPUS HGB CONC 35.9 g/dL (32.0-36.0); MEAN CORPUSCULAR HEMOGLOB 30.9 pg (26.0-34.0); MEAN CORPUSCULAR VOLUME 86.1 fL (80-100); MEAN PLATELET VOLUME 9.4 fL (9.2-13.0); MONOCYTES ABSOLUTE 0.77 10/3/uL (0.21-1.20); NEUTROPHILS 75.9 %; NEUTROPHILS ABSOLUTE 7.29 10/3/uL (2.02-8.40); PLATELET COUNT 381 10/3/uL (150-400); RBC DISTRIBUTION WIDTH 14.4 % (12.0-16.0); WHITE BLOOD CELLS 9.6 10/3/uL (4.5-10.5)
[2016-12-25 06:42] LABS: HEMATOCRIT 28.4 % (40.0-51.0); MANUAL DIFF NO %
[2016-12-25 06:48] LABS: ALBUMIN 2.1 G/DL (3.5-5.0); CALCIUM, SERUM 7.8 MG/DL (8.5-10.4); CO2 (CARBON DIOXIDE) 28 MMOL/L (24-34); GFR AFRICAN AMERICAN 11 ML/MIN (>=60); GFR NON AFRICAN AMERICAN 10 ML/MIN (>=60); GLUCOSE, SERUM 91 MG/DL (60-99); PHOSPHORUS, SERUM 4.5 MG/DL (2.5-4.5); POTASSIUM, SERUM 3.3 MMOL/L (3.5-5.3); SODIUM, SERUM 128 MMOL/L (135-148)
[2016-12-25 06:51] LABS: BUN (BLOOD UREA NITROGEN) 66 MG/DL (6-23); CHLORIDE, SERUM 94 MMOL/L (96-112); CREATININE 5.65 MG/DL (0.70-1.30)
[2016-12-26 07:51] LABS: BASOPHILS 0.5 %; BASOPHILS ABSOLUTE 0.05 10/3/uL (0.0-0.16); EOSINOPHILS 5.6 %; EOSINOPHILS ABSOLUTE 0.52 10/3/uL (0.0-0.53); HEMATOCRIT 28.8 % (40.0-51.0); IMMATURE GRANULOCYTES 4.8 %; IMMATURE GRANULOCYTES ABSOLUTE 0.45 10/3/uL (0.0-0.11); LYMPHOCYTES 7.8 %; LYMPHOCYTES ABSOLUTE 0.72 10/3/uL (0.67-4.30); MANUAL DIFF NO %; MEAN CORPUS HGB CONC 34.7 g/dL (32.0-36.0); MEAN CORPUSCULAR HEMOGLOB 30.7 pg (26.0-34.0); MEAN CORPUSCULAR VOLUME 88.3 fL (80-100); MEAN PLATELET VOLUME 9.2 fL (9.2-13.0); MONOCYTES 9.7 %; NEUTROPHILS 71.6 %; NEUTROPHILS ABSOLUTE 6.65 10/3/uL (2.02-8.40); PLATELET COUNT 436 10/3/uL (150-400); RBC DISTRIBUTION WIDTH 14.7 % (12.0-16.0); RED CELL COUNT 3.26 10/6/uL (4.7-6.1); WHITE BLOOD CELLS 9.3 10/3/uL (4.5-10.5)
[2016-12-26 08:04] LABS: ALBUMIN 2.2 G/DL (3.5-5.0); CALCIUM, SERUM 7.9 MG/DL (8.5-10.4); CHLORIDE, SERUM 99 MMOL/L (96-112); CO2 (CARBON DIOXIDE) 26 MMOL/L (24-34); GLUCOSE, SERUM 105 MG/DL (60-99); POTASSIUM, SERUM 3.9 MMOL/L (3.5-5.3); SODIUM, SERUM 136 MMOL/L (135-148)
[2016-12-26 08:05] LABS: BUN (BLOOD UREA NITROGEN) 51 MG/DL (6-23); CREATININE 3.56 MG/DL (0.70-1.30); GFR AFRICAN AMERICAN 20 ML/MIN (>=60); GFR NON AFRICAN AMERICAN 17 ML/MIN (>=60); PHOSPHORUS, SERUM 3.1 MG/DL (2.5-4.5)
[2016-12-27 06:30] LABS: HEMOGLOBIN 9.7 g/dL (13.6-17.8); MEAN CORPUS HGB CONC 33.4 g/dL (32.0-36.0); MEAN CORPUSCULAR HEMOGLOB 30.3 pg (26.0-34.0); MEAN CORPUSCULAR VOLUME 90.6 fL (80-100); MEAN PLATELET VOLUME 8.9 fL (9.2-13.0); PLATELET COUNT 455 10/3/uL (150-400); RBC DISTRIBUTION WIDTH 14.9 % (12.0-16.0); WHITE BLOOD CELLS 9.9 10/3/uL (4.5-10.5)
[2016-12-27 06:33] LABS: MANUAL DIFF YES %
[2016-12-27 06:46] LABS: ALBUMIN 2.1 G/DL (3.5-5.0); CALCIUM, SERUM 8.2 MG/DL (8.5-10.4); CHLORIDE, SERUM 105 MMOL/L (96-112); CO2 (CARBON DIOXIDE) 25 MMOL/L (24-34); GFR AFRICAN AMERICAN 30 ML/MIN (>=60); GFR NON AFRICAN AMERICAN 26 ML/MIN (>=60); GLUCOSE, SERUM 97 MG/DL (60-99); PHOSPHORUS, SERUM 2.6 MG/DL (2.5-4.5); POTASSIUM, SERUM 4.4 MMOL/L (3.5-5.3); SODIUM, SERUM 137 MMOL/L (135-148)
[2016-12-27 06:47] LABS: BUN (BLOOD UREA NITROGEN) 39 MG/DL (6-23); CREATININE 2.55 MG/DL (0.70-1.30)
[2016-12-27 06:57] LABS: BAND NEUTROPHILS 3 %; EOSINOPHILS 5 %; LYMPHOCYTES 10 %; LYMPHOCYTES ABSOLUTE (CALC) 0.99 10/3/uL (0.67-4.30); METAMYELOCYTES 2 %; MONOCYTES 6 %; MONOCYTES ABSOLUTE (CALC) 0.59 10/3/uL (0.21-1.20); NEUTROPHILS ABSOLUTE (CALC) 7.62 10/3/uL (2.02-8.40); PLATELET ESTIMATE SLT INC (ADEQUATE); SEGMENTED NEUTROPHIL (0) 74 %; TOTAL NUCLEATED CELLS 100
[2016-12-27 06:58] LABS: POLYCHROMASIA 1+ (2-5/OIF) (0-1/OIF); TOXIC GRANULATION 1+
[2016-12-28 06:29] LABS: ALBUMIN 2.2 G/DL (3.5-5.0); CALCIUM, SERUM 8.1 MG/DL (8.5-10.4); CHLORIDE, SERUM 104 MMOL/L (96-112); CO2 (CARBON DIOXIDE) 25 MMOL/L (24-34); PHOSPHORUS, SERUM 2.8 MG/DL (2.5-4.5); POTASSIUM, SERUM 4.2 MMOL/L (3.5-5.3); SODIUM, SERUM 137 MMOL/L (135-148)
[2016-12-28 06:30] LABS: BUN (BLOOD UREA NITROGEN) 28 MG/DL (6-23); CREATININE 2.03 MG/DL (0.70-1.30); GFR AFRICAN AMERICAN 40 ML/MIN (>=60); GFR NON AFRICAN AMERICAN 34 ML/MIN (>=60); GLUCOSE, SERUM 119 MG/DL (60-99)
== END 2016-12-29 19:40 | DRG 698 ==
LOC: ER 15:56 → 5SO 22:07
PROVIDERS: Hospitalist; Internal Medicine Nephrology; Internal Medicine Pulmonary Disease; Nurse Practitioner; Nurse Practitioner Family
PROC: 02HV33Z Insertion of Infusion Device into Superior Vena Cava, Percutaneous Approach (ICD-10-PCS; principal; 2016-12-27)
PROC: 4A02X4A Measurement of Cardiac Electrical Activity, Guidance, External Approach (ICD-10-PCS; 2016-12-27)
DX: T83.518A Infection and inflammatory reaction due to other urinary catheter, initial encounter (principal); A41.02 Sepsis due to Methicillin resistant Staphylococcus aureus; E87.2 Acidosis; N17.9 Acute kidney failure, unspecified; E87.1 Hypo-osmolality and hyponatremia; N39.0 Urinary tract infection, site not specified; N13.30 Unspecified hydronephrosis; N18.3 Chronic kidney disease, stage 3 (moderate); E86.0 Dehydration; F25.0 Schizoaffective disorder, bipolar type; I12.9 Hypertensive chronic kidney disease with stage 1 through stage 4 chronic kidney disease, or unspecified chronic kidney disease; B95.62 Methicillin resistant Staphylococcus aureus infection as the cause of diseases classified elsewhere; I45.10 Unspecified right bundle-branch block; D63.1 Anemia in chronic kidney disease; Z85.048 Personal history of other malignant neoplasm of rectum, rectosigmoid junction, and anus; Z93.3 Colostomy status; Z86.718 Personal history of other venous thrombosis and embolism; Z79.899 Other long term (current) drug therapy; Z91.040 Latex allergy status
CPT/HCPCS: 36569; 71010; 76775; 80048; 80053; 80069; 80076; 80202; 81001; 82570; 82962; 83605; 83690; 83735; 83930; 83935; 84100; 84133; 84145; 84300; 85025; 85610; 85730; 87040; 87077; 87086; 87150; 87186; 93005; 96374; 97116-GP; 97161-GP; 99285; A9270-GY; C1751; G8978-CJ-GP; G8979-CH-GP; J2405; J3370; J3475